=== PATIENT | female | born 1975 | race Caucasian/White ===

== ENCOUNTER 2017-04-29 10:49 | Emergency (ER) | payer OTHER ==
[~2017-04-29] VITALS: Ht 157.5 cm; Wt 106.6 kg
[~2017-04-29 10:49] MED LIST: ASPI-612 PO; BENZ100C15 PO; CARV6.252 PO; DOXY100C2 PO; FURO40TA4 PO; LEVO500T59 PO; LISI2.5T PO; PRED-220 PO; PROAIR HFA8.5 GM IH; [UNRECOGNIZED DRUG - OTHER]
--- NOTE | 2017-04-29 11:16 | PHYS DOC ---
Past Medical History Past Medical History: CHF, COPD, Hypertension Past Surgical History: Tubal ligation Alcohol Use: None Drug Use: None Adult General Chief Complaint Chief Complaint: CHEST PAIN HPI HPI Patient is a 41 year old female presents to the emergency department with complaints of chest and back pain for 5 days. She states she's had increasing shortness of breath. She reports she has not taken her Lasix for approximately 2 months. She denies headache, lightheadedness, nausea, vomiting, abdominal pain. She does report a history of COPD and CHF. She states she is using her albuterol nebulizer 4 times a day without relief of symptoms. She states her last use of tobacco was 5 days ago. She denies use of alcohol or drugs. Review of Systems Review of Systems Constitutional: Denies fever or chills [] Eyes: Denies change in visual acuity, redness, or eye pain [] HENT: Denies nasal congestion or sore throat [] Respiratory: Cough, shortness of breath Cardiovascular: Anterior chest pain, no palpitations, no edema. GI: Denies abdominal pain, nausea, vomiting, bloody stools or diarrhea [] : Denies dysuria or hematuria [] Musculoskeletal: back pain Integument: Denies rash or skin lesions [] Neurologic: Denies headache, focal weakness or sensory changes [] Endocrine: Denies polyuria or polydipsia [] Current Medications Current Medications Current Medications Medications (Trade) Dose Ordered Sig/[facility] Start Time Stop Time Status Last Admin Dose Admin Furosemide (Lasix) 20 mg 1X ONCE 04/29/17 12:15 04/29/17 12:17 DC 04/29/17 13:07 20 MG Allergies Allergies Allergies Coded Allergies Type Severity Reaction Last Updated Verified No Known Drug Allergies 07/29/15 No Physical Exam Physical Exam Constitutional: Well developed, well nourished, no acute distress, non-toxic appearance. [] HENT: Normocephalic, atraumatic, bilateral external ears normal, oropharynx moist, no oral exudates, nose normal. [] Eyes: PERRLA, EOMI, conjunctiva normal, no discharge. [] Neck: Normal range of motion, no tenderness, supple, no stridor. [] Cardiovascular:Heart rate regular rhythm, no murmur [] Lungs & Thorax: Breath sounds diminished throughout Abdomen: Bowel sounds normal, soft, no tenderness, no masses, no pulsatile masses. [] Skin: Warm, dry, no erythema, no rash. [] Back: No tenderness, no CVA tenderness. [] Extremities: No tenderness, no cyanosis, no clubbing, ROM intact, no edema. [] Neurologic: Alert and oriented X 3, normal motor function, normal sensory function, no focal deficits noted. [] Psychologic: Affect normal, judgement normal, mood normal. [] Current Patient Data Vital Signs Vital Signs Date Time Temp Pulse Resp B/P (MAP) Pulse Ox O2 Delivery O2 Flow Rate FiO2 04/29/17 11:08 98.1 101 22 142/100 (114) 95 Room Air 98.1 Lab Values Laboratory Tests Test 04/29/17 11:55 04/29/17 13:01 White Blood Count 8.6 x10^3/uL (4.0-11.0) Red Blood Count 4.40 x10^6/uL (3.50-5.40) Hemoglobin 13.4 g/dL (12.0-15.5) Hematocrit 40.3 % (36.0-47.0) Mean Corpuscular Volume 91 fL (79-100) Mean Corpuscular Hemoglobin 30 pg (25-35) Mean Corpuscular Hemoglobin Concent 33 g/dL (31-37) Red Cell Distribution Width 14.7 % (11.5-14.5) H Platelet Count 215 x10^3/uL (140-400) Neutrophils (%) (Auto) 74 % (31-73) H Lymphocytes (%) (Auto) 16 % (24-48) L Monocytes (%) (Auto) 8 % (0-9) Eosinophils (%) (Auto) 3 % (0-3) Basophils (%) (Auto) 0 % (0-3) Neutrophils # (Auto) 6.3 x10^3uL (1.8-7.7) Lymphocytes # (Auto) 1.4 x10^3/uL (1.0-4.8) Monocytes # (Auto) 0.7 x10^3/uL (0.0-1.1) Eosinophils # (Auto) 0.2 x10^3/uL (0.0-0.7) Basophils # (Auto) 0.0 x10^3/uL (0.0-0.2) Sodium Level 141 mmol/L (136-145) Potassium Level 4.1 mmol/L (3.5-5.1) Chloride Level 105 mmol/L (98-107) Carbon Dioxide Level 30 mmol/L (21-32) Anion Gap 6 (6-14) Blood Urea Nitrogen 7 mg/dL (7-20) Creatinine 1.0 mg/dL (0.6-1.0) Estimated GFR (Cockcroft-Gault) 60.5 BUN/Creatinine Ratio 7 (6-20) Glucose Level 122 mg/dL (70-99) H Calcium Level 9.0 mg/dL (8.5-10.1) Total Bilirubin 1.2 mg/dL (0.2-1.0) H Aspartate Amino Transferase (AST) 15 U/L (15-37) Alanine Aminotransferase (ALT) 49 U/L (14-59) Alkaline Phosphatase 80 U/L (46-116) Creatine Kinase 40 U/L (26-192) Creatine Kinase MB (Mass) 0.6 ng/mL (0.0-3.6) Creatine Kinase MB Relative Index % (0-4) Troponin I Quantitative 0.022 ng/mL (0.000-0.055) QA-Hic-X-Type Natriuretic Peptide 2061 pg/mL (0-124) H Total Protein 8.3 g/dL (6.4-8.2) H Albumin 3.4 g/dL (3.4-5.0) Albumin/Globulin Ratio 0.7 (1.0-1.7) L Urine Color Yellow Urine Clarity Clear Urine pH 7.5 Urine Specific [place] 1.010 Urine Protein Negative mg/dL (NEG-TRACE) Urine Glucose (UA) Negative mg/dL (NEG) Urine Ketones (Stick) Negative mg/dL (NEG) Urine Blood Negative (NEG) Urine Nitrite Negative (NEG) Urine Bilirubin Negative (NEG) Urine Urobilinogen Dipstick 1.0 mg/dL (0.2 mg/dL) Urine Leukocyte Esterase Trace (NEG) Urine RBC 0 /HPF (0-2) Urine WBC 1-4 /HPF (0-4) Urine Squamous Epithelial Cells Occ /LPF Urine Amorphous Sediment Present /HPF Urine Bacteria 0 /HPF (0-FEW) Urine Mucus Slight /LPF Laboratory Tests 04/29/17 11:55 Laboratory Tests 04/29/17 11:55 EKG EKG Reviewed by Dr. Ordaz, emergency medicine physician, no acute changes, non- STEMI. [] Radiology/Procedures Radiology/Procedures [][facility] [address] [place] [address] IMAGING REPORT Signed PATIENT: SANTHOSH FONTANEZ ACCOUNT: [id number] : 1975 LOCATION: ER AGE: 41 SEX: F EXAM STATUS: REG ER ORD. PHYSICIAN: VAN GRAF APRN REASON: Cough, SOA PROCEDURE: CHEST PA & LATERAL Examination: Single frontal view the chest History: History of cough, shortness of breath Comparison: 11/13/2016 Findings: The cardiomediastinal silhouette grossly appears unremarkable. There is no acute infiltrate or visualized pneumothorax. Mild prominent appearing bilateral interstitial markings. Impression: Mild prominent bilateral interstitial lung markings likely mild congestive changes. DICTATED and SIGNED BY: NORMA REGAN MD DATE: 04/29/17 1154 CC: NON,STAFF; VAN GRAF APRN; UNKNOWN PCP NAME ~ Course & Med Decision Making Course & Med Decision Making Review with Dr. Llamas, emergency medicine physician. He is in agreement with plan to discharge patient home with Lasix and follow-up primary care in 2 days. Pertinent Labs and Imaging studies reviewed. (See chart for details) [] Dragon Disclaimer Dragon Disclaimer This electronic medical record was generated, in whole or in part, using a voice recognition dictation system. Departure Departure Impression: Primary Impression: CHF (congestive heart failure) Disposition: 01 HOME, SELF-CARE Condition: STABLE Referrals: UNKNOWN PCP NAME (PCP) Patient Instructions: Diet - 2 Gram Low Sodium, Heart Failure Additional Instructions: Plan to follow-up with your primary care physician in 2 days. Please return to the emergency Department for new symptoms or concerns or worsening of current condition. Scripts Potassium Bicarbonate/Cit Ac (POTASSIUM 25 MEQ TABLET EFF) 25 Meq Tablet.eff 25 MEQ PO DAILY for 20 Days, #20 TAB Prov: VAN GRAF APRN 04/29/17 Furosemide (LASIX) 20 Mg Tablet 1 TAB PO DAILY, #20 TAB 5 Refills Prov: VAN GRAF APRN 04/29/17 VAN GRAF APRN Apr 29, 2017 11:16
--- NOTE | 2017-04-29 11:58 | RAD ---
Examination: Single frontal view the chest History: History of cough, shortness of breath Comparison: 11/13/2016 Findings: The cardiomediastinal silhouette grossly appears unremarkable. There is no acute infiltrate or visualized pneumothorax. Mild prominent appearing bilateral interstitial markings. Impression: Mild prominent bilateral interstitial lung markings likely mild congestive changes.
[2017-04-29 12:05] LABS: BASO % 0 % (0-3); EOS % 3 % (0-3); HEMATOCRIT 40.3 % (36.0-47.0); HEMOGLOBIN 13.4 g/dL (12.0-15.5); LYMPH # 1.4 x10^3/uL (1.0-4.8); LYMPH % 16 % (24-48); MEAN CORPUSCULAR HEMOGLOBIN 30 pg (25-35); MEAN CORPUSCULAR HGB CONC 33 g/dL (31-37); MEAN CORPUSCULAR VOLUME 91 fL (79-100); MONO % 8 % (0-9); NEUT % 74 % (31-73); PLATELET COUNT 215 x10^3/uL (140-400); RED CELL DISTRIBUTION WIDTH 14.7 % (11.5-14.5); WHITE BLOOD COUNT 8.6 x10^3/uL (4.0-11.0)
--- NOTE | 2017-04-29 12:07 | EKG ---
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
[2017-04-29] MEDS ORDERED: FUROSEMIDE 20 MG/2 ML VIAL. IVP ONE (12:15)
[2017-04-29 12:16] LABS: GFR 60.5; POTASSIUM 4.1 mmol/L (3.5-5.1)
[2017-04-29 12:23] LABS: ALBUMIN 3.4 g/dL (3.4-5.0); ALBUMIN/GLOBULIN RATIO 0.7 (1.0-1.7); TOTAL BILIRUBIN 1.2 mg/dL (0.2-1.0); TOTAL PROTEIN 8.3 g/dL (6.4-8.2)
[2017-04-29 12:28] LABS: CKMB MASS 0.6 ng/mL (0.0-3.6); CREATINE KINASE 40 U/L (26-192)
[2017-04-29] MEDS ORDERED: FURO-69 PO (13:01)
[2017-04-29] MEDS ORDERED: POTA25TA4 PO (13:01)
[2017-04-29 13:27] LABS: BILIRUBIN,URINE NEGATIVE (NEG); GLUCOSE,URINE NEGATIVE (NEG); NITRITE,URINE NEGATIVE (NEG); PH,URINE 7.5; PROTEIN,URINE NEGATIVE (NEG-TRACE)
[2017-04-29 13:51] LABS: SQUAMOUS EPITHELIAL CELL,UR OCC /LPF
[2017-04-29 13:53] LABS: BACTERIA,URINE 0 /HPF (0-FEW); RBC,URINE 0 /HPF (0-2)
[2017-04-29 14:22] VITALS: BP 158/87
== END 2017-04-29 14:25 | disposition home or self-care (01) ==
LOC: ER 10:49
DX: I11.0 Hypertensive heart disease with heart failure (principal); I50.9 Heart failure, unspecified; F17.200 Nicotine dependence, unspecified, uncomplicated; J44.9 Chronic obstructive pulmonary disease, unspecified; Z98.51 Tubal ligation status
CPT/HCPCS: 36415; 71020; 80053; 81001; 82553; 83880; 84484; 85027; 93005; 96374; 99285-25

== ENCOUNTER 2017-11-15 13:05 | Emergency (ER) | payer OTHER ==
[2017-11-15 14:02] LABS: ADD MAN DIFF? NO
[2017-11-15 14:16] LABS: BASO % 1 % (0-3); EOS # 0.1 x10^3/uL (0.0-0.7); EOS % 2 % (0-3); HEMATOCRIT 41.6 % (36.0-47.0); HEMOGLOBIN 13.8 g/dL (12.0-15.5); LYMPH # 0.9 x10^3/uL (1.0-4.8); LYMPH % 13 % (24-48); MEAN CORPUSCULAR HEMOGLOBIN 31 pg (25-35); MEAN CORPUSCULAR HGB CONC 33 g/dL (31-37); MEAN CORPUSCULAR VOLUME 93 fL (79-100); MONO # 0.9 x10^3/uL (0.0-1.1); MONO % 13 % (0-9); NEUT # 4.7 x10^3uL (1.8-7.7); NEUT % 71 % (31-73); PLATELET COUNT 207 x10^3/uL (140-400); RED BLOOD COUNT 4.45 x10^6/uL (3.50-5.40); RED CELL DISTRIBUTION WIDTH 14.2 % (11.5-14.5); WHITE BLOOD COUNT 6.7 x10^3/uL (4.0-11.0)
[2017-11-15 14:19] LABS: ANION GAP 12 (6-14); BLOOD UREA NITROGEN 10 mg/dL (7-20); BUN/CREATININE RATIO 13 (6-20); CALCIUM 8.8 mg/dL (8.5-10.1); CARBON DIOXIDE 27 mmol/L (21-32); CHLORIDE 103 mmol/L (98-107); CREATININE 0.8 mg/dL (0.6-1.0); GFR 77.9; GLUCOSE 128 mg/dL (70-99); POTASSIUM 3.8 mmol/L (3.5-5.1); SODIUM 142 mmol/L (136-145)
[2017-11-15] MEDS: DEXAMETHASONE SOD PHOS 4 MG/ML VIAL IV (14:19)
[2017-11-15 14:24] LABS: ALBUMIN 3.5 g/dL (3.4-5.0); ALBUMIN/GLOBULIN RATIO 0.8 (1.0-1.7); ALK PHOS 78 U/L (46-116); ALT (SGPT) 26 U/L (14-59); AST (SGOT) 17 U/L (15-37); TOTAL BILIRUBIN 0.5 mg/dL (0.2-1.0); TOTAL PROTEIN 7.9 g/dL (6.4-8.2)
[2017-11-15 14:32] LABS: TROPONINI < 0.017 ng/mL (0.000-0.055)
[2017-11-15] MEDS: IPRATRPIUM/ALBUTEROL 0.5/2.5MG 3 ML NEBU. NEB (14:46)
[2017-11-15 14:56] LABS: D-DIMER 0.34 ug/mlFEU (0.00-0.50)
== END 2017-11-15 15:43 | disposition home or self-care (01) ==
LOC: ER 13:05
DX: J44.0 Chronic obstructive pulmonary disease with (acute) lower respiratory infection (principal); J18.1 Lobar pneumonia, unspecified organism; J44.1 Chronic obstructive pulmonary disease with (acute) exacerbation; I11.0 Hypertensive heart disease with heart failure; I50.9 Heart failure, unspecified
CPT/HCPCS: 36415; 71046; 80053; 84484; 85025; 85379; 93005; 94640; 96374; 99285-25; J1100; J7620

== ENCOUNTER → 2018-08-06 | Outpatient (CLI) | payer OTHER ==
[2017-11-15 15:43] VITALS: BP 136/78
[~2018-08-06] MED LIST changes: +ALBUTEROL SULFATE 2.5 MG/3 ML NEBU. NEB ONE; +BENZ-8 PO; -BENZ100C15 PO; +DOXY100T PO; +FURO-69 PO; +POTA25TA4 PO; +PRED50TA PO
== END | disposition home or self-care (01) ==
LOC: PF 10:31
PROVIDERS: ATTEND Surgery
DX: J44.9 Chronic obstructive pulmonary disease, unspecified (principal)
CPT/HCPCS: 94060; 94640; 94729; J7613

== ENCOUNTER 2019-08-01 23:07 | Emergency (ER) | payer OTHER ==
[~2019-08-01] VITALS: Ht 162.6 cm; Wt 104.3 kg
[~2019-08-01 23:07] MED LIST changes: +ALBU2.5V8 IH; -ALBUTEROL SULFATE 2.5 MG/3 ML NEBU. NEB ONE; +CARV6.2511 PO; -CARV6.252 PO; -PROAIR HFA8.5 GM IH
[2019-08-01] MEDS ORDERED: IPRATRPIUM/ALBUTEROL 0.5/2.5MG 3 ML NEBU. ONE (23:31)
--- NOTE | 2019-08-02 00:09 | PHYS DOC ---
Past Medical History Past Medical History: CHF, COPD, Hypertension, Other Additional Past Medical Histor: "HEART WEAK" Past Surgical History: Tubal ligation Alcohol Use: None Drug Use: None Adult General Chief Complaint Chief Complaint: SHORTNESS OF BREATH HPI HPI Patient is a 44 year old female who presents with SOB, states for the past week, coughing and congestion, not feeling well. Worse this evening. No CP States cough is dry and giving her a headache. No fevers. Hx of COPD and CHF Denies leg edema. Breathing treatment on arrival. Review of Systems Review of Systems Constitutional: Denies fever or chills [] Eyes: Denies change in visual acuity, redness, or eye pain [] HENT: Denies nasal congestion or sore throat [] Respiratory: c/o cough and SOB Cardiovascular: No additional information not addressed in HPI [] GI: Denies abdominal pain, nausea, vomiting, bloody stools or diarrhea [] Musculoskeletal: Denies back pain or joint pain [] Integument: Denies rash or skin lesions [] Neurologic: Denies headache, focal weakness or sensory changes [] Endocrine: Denies polyuria or polydipsia [] All other systems were reviewed and found to be within normal limits, except as documented in this note. Current Medications Current Medications Current Medications Medications (Trade) Dose Ordered Sig/[facility] Start Time Stop Time Status Last Admin Dose Admin Acetaminophen/ Hydrocodone Bitart (Lortab 7.5-325/ 15ml Oral Solution) 15 ml 1X ONCE 08/02/19 00:15 08/02/19 00:16 DC 08/02/19 00:19 15 ML Albuterol/ Ipratropium (Duoneb) 3 ml STK-MED ONCE 08/01/19 23:31 08/01/19 23:32 DC Methylprednisolone Sodium Succinate (SOLU-Medrol 125MG VIAL) 125 mg 1X ONCE 08/02/19 00:15 08/02/19 00:16 DC 08/02/19 00:45 125 MG Allergies Allergies Allergies Coded Allergies Type Severity Reaction Last Updated Verified No Known Drug Allergies 07/29/15 No Physical Exam Physical Exam Constitutional: Well developed, well nourished, no acute distress, non-toxic appearance. [] HENT: Normocephalic, atraumatic, bilateral external ears normal, oropharynx moist, no oral exudates, nose normal. [] Eyes: PERRLA, EOMI, conjunctiva normal, no discharge. [] Neck: Normal range of motion, no tenderness, supple, no stridor. [] Cardiovascular:Heart rate regular rhythm, no murmur [] Lungs & Thorax: Bilateral breath sounds clear to auscultation []Moderate dry coughing, lungs CTA Abdomen: Bowel sounds normal, soft, no tenderness, no masses, no pulsatile masses. [] Skin: Warm, dry, no erythema, no rash. [] Back: No tenderness, no CVA tenderness. [] Extremities: No tenderness, no cyanosis, no clubbing, ROM intact, no edema. [] Neurologic: Alert and oriented X 3, normal motor function, normal sensory function, no focal deficits noted. [] Psychologic: Affect normal, judgement normal, mood normal. [] Current Patient Data Vital Signs Vital Signs Date Time Temp Pulse Resp B/P (MAP) Pulse Ox O2 Delivery O2 Flow Rate FiO2 08/02/19 00:19 18 94 Room Air Lab Values Laboratory Tests Test 08/02/19 00:30 White Blood Count 5.2 x10^3/uL (4.0-11.0) Red Blood Count 4.02 x10^6/uL (3.50-5.40) Hemoglobin 12.0 g/dL (12.0-15.5) Hematocrit 35.8 % (36.0-47.0) L Mean Corpuscular Volume 89 fL (79-100) Mean Corpuscular Hemoglobin 30 pg (25-35) Mean Corpuscular Hemoglobin Concent 34 g/dL (31-37) Red Cell Distribution Width 14.2 % (11.5-14.5) Platelet Count 181 x10^3/uL (140-400) Neutrophils (%) (Auto) 71 % (31-73) Lymphocytes (%) (Auto) 16 % (24-48) L Monocytes (%) (Auto) 11 % (0-9) H Eosinophils (%) (Auto) 1 % (0-3) Basophils (%) (Auto) 1 % (0-3) Neutrophils # (Auto) 3.7 x10^3/uL (1.8-7.7) Lymphocytes # (Auto) 0.8 x10^3/uL (1.0-4.8) L Monocytes # (Auto) 0.6 x10^3/uL (0.0-1.1) Eosinophils # (Auto) 0.1 x10^3/uL (0.0-0.7) Basophils # (Auto) 0.0 x10^3/uL (0.0-0.2) Sodium Level 136 mmol/L (136-145) Potassium Level 3.9 mmol/L (3.5-5.1) Chloride Level 100 mmol/L (98-107) Carbon Dioxide Level 29 mmol/L (21-32) Anion Gap 7 (6-14) Blood Urea Nitrogen 13 mg/dL (7-20) Creatinine 1.1 mg/dL (0.6-1.0) H Estimated GFR (Cockcroft-Gault) 53.5 Glucose Level 153 mg/dL (70-99) H Calcium Level 9.0 mg/dL (8.5-10.1) Troponin I Quantitative < 0.017 ng/mL (0.000-0.055) CQ-Jto-X-Type Natriuretic Peptide 385 pg/mL (0-124) H Laboratory Tests 08/02/19 00:30 Laboratory Tests 08/02/19 00:30 EKG EKG 0004: rate 92 NSR, no ST changes, EP interp Radiology/Procedures Radiology/Procedures []Chest xray 2 view, no acute finding Impressions: COPD exacerbation Course & Med Decision Making Course & Med Decision Making Pertinent Labs and Imaging studies reviewed. (See chart for details) []VSS, lungs CTA, breathing treatment on my arrival Hx of COPD and CHF, no distal edema No CP Labs and chest xray Prednisone and cough medication She is anxious to go after medications, reports she is feeling much better Vitals remain stable, has albuterol at home Educated on home care fu and reasons to return to the ER Shelley Disclaimer Shelley Disclaimer This electronic medical record was generated, in whole or in part, using a voice recognition dictation system. Departure Departure Impression: Primary Impression: COPD exacerbation Disposition: HOME, SELF-CARE Condition: STABLE Referrals: NO PCP (PCP) Patient Instructions: Cough, Adult, [id number] Additional Instructions: Go home and rest Continue home medications Steroids and cough medication as prescribed Call your doctor Saturday for follow up, return for any concerns or worsening symptoms Scripts Prednisone (PREDNISONE) 20 Mg Tablet 1 TAB PO BID for 5 Days, #10 TAB Prov: JUAN RAMON AUSTIN APRN 08/02/19 JUAN RAMON AUSTIN APRN Aug 02, 2019 00:09
[2019-08-02] MEDS ORDERED: methylPREDNISolone SOD SUCC PF 125 MG/2 ML VIAL. IV ONE (00:15)
[2019-08-02] MEDS ORDERED: HYDROcodon/APAP 7.5/325MG ORAL 15 ML SOLUTION PO ONE (00:15)
[2019-08-02 00:48] LABS: CREATININE 1.1 mg/dL (0.6-1.0); GFR 53.5; POTASSIUM 3.9 mmol/L (3.5-5.1)
[2019-08-02 00:52] LABS: BASO % 1 % (0-3); EOS # 0.1 x10^3/uL (0.0-0.7); EOS % 1 % (0-3); HEMATOCRIT 35.8 % (36.0-47.0); LYMPH # 0.8 x10^3/uL (1.0-4.8); LYMPH % 16 % (24-48); MEAN CORPUSCULAR HEMOGLOBIN 30 pg (25-35); MEAN CORPUSCULAR HGB CONC 34 g/dL (31-37); MEAN CORPUSCULAR VOLUME 89 fL (79-100); MONO # 0.6 x10^3/uL (0.0-1.1); MONO % 11 % (0-9); NEUT # 3.7 x10^3/uL (1.8-7.7); NEUT % 71 % (31-73); PLATELET COUNT 181 x10^3/uL (140-400); RED BLOOD COUNT 4.02 x10^6/uL (3.50-5.40); RED CELL DISTRIBUTION WIDTH 14.2 % (11.5-14.5); WHITE BLOOD COUNT 5.2 x10^3/uL (4.0-11.0)
[2019-08-02] MEDS ORDERED: PRED20TA PO (01:41)
[2019-08-02 03:38] VITALS: BP 138/79
--- NOTE | 2019-08-02 06:48 | RAD ---
Chest, PA and Lateral: Technique: PA and lateral views of the chest were obtained. History: Shortness of breath. Comparison: 11/15/2017. Findings: Mild cardiomegaly. Patchy bibasilar lung airspace opacities likely atelectasis or infiltrates. There is mild prominent appearing bilateral interstitial lung markings. IMPRESSION: 1. Mild congestive changes. 2. Mild bibasilar lung airspace opacities likely atelectasis or infiltrates. Electronically signed by: Demarco Millard MD (08/02/2019 6:45 AM) [facility]
--- NOTE | 2019-08-03 06:15 | EKG ---
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
== END 2019-08-02 03:45 | disposition home or self-care (01) ==
LOC: ER 23:07
DX: J44.1 Chronic obstructive pulmonary disease with (acute) exacerbation (principal); I11.0 Hypertensive heart disease with heart failure; I50.9 Heart failure, unspecified
CPT/HCPCS: 36415; 71046; 80048; 83880; 84484; 85025; 93005; 96374; 99285; J2930

== ENCOUNTER 2020-01-25 04:00 | Emergency (ER) | payer OTHER ==
[~2020-01-25] VITALS: Ht 157.5 cm; Wt 134.5 kg
[~2020-01-25 04:00] MED LIST changes: +PRED20TA PO
[2020-01-25 04:04] VITALS: BP 129/80
== END 2020-01-25 04:20 | disposition left against medical advice (07) ==
LOC: ER 04:00
DX: R05 Cough (principal); J00 Acute nasopharyngitis [common cold]; Z53.21 Procedure and treatment not carried out due to patient leaving prior to being seen by health care provider

== ENCOUNTER 2020-06-20 17:49 | Inpatient (IN) | payer OTHER ==
[~2020-06-20] VITALS: Ht 160 cm; Wt 134.1 kg
[~2020-06-20 17:49] MED LIST changes: -ASPI-612 PO; +ASPI-886 PO
--- NOTE | 2020-06-20 18:44 | PHYS DOC ---
Past Medical History Past Medical History: CHF, COPD Additional Past Medical Histor: "HEART WEAK" Past Surgical History: No Surgical History Smoking Status: Current Every Day Smoker Alcohol Use: None Drug Use: None General Adult EDM: Chief Complaint: SHORTNESS OF BREATH HPI: HPI: Patient is a 45 year old female who presents with cough with green mucus production, shortness of air and chest tightness for the last 3 days. She states that she is gotten worse over the last 3 days. She denies fever, abdominal pain, nausea, vomiting, diarrhea, syncope, dizziness, numbness or tingling, headache, vision changes, focal weakness. She states her chest feels very tight. She speaks in short sentences due to shortness of breath. She is a history of COPD, CHF, smoker. States she has been using her nebulizer at home and is not working. She states she is not currently on any prednisone or antibiotics. Review of Systems: Review of Systems: Constitutional: Denies fever or chills. [] Eyes: Denies change in visual acuity. [] HENT: Denies nasal congestion or sore throat. [] Respiratory: cough or shortness of breath. [] Cardiovascular: chest pain or edema. [] GI: Denies abdominal pain, nausea, vomiting, bloody stools or diarrhea. [] : Denies dysuria. [] Musculoskeletal: Denies back pain or joint pain. [] Integument: Denies rash. [] Neurologic: Denies headache, focal weakness or sensory changes. [] Endocrine: Denies polyuria or polydipsia. [] Lymphatic: Denies swollen glands. [] Psychiatric: Denies depression or anxiety. [] Heart Score: HEART Score for Chest Pain: HEART Score for Chest Pain Response (Comments) Value History Slighlty/Non-Suspicious 0 ECG Normal 0 Age >45 - < 65 1 Risk Factors >3 Risk Factors or Hx CAD 2 Troponin < Normal Limit 0 Total 3 Risk Factors: Risk Factors: DM, Current or recent (<one month) smoker, HTN, HLP, family history of CAD, obesity. Risk Scores: Score 0 - 3: 2.5% MACE over next 6 weeks - Discharge Home Score 4 - 6: 20.3% MACE over next 6 weeks - Admit for Clinical Observation Score 7 - 10: 72.7% MACE over next 6 weeks - Early Invasive Strategies Allergies: Allergies: Allergies Coded Allergies Type Severity Reaction Last Updated Verified No Known Drug Allergies 07/29/15 No Physical Exam: PE: Constitutional: Well developed, well nourished, no acute distress, non-toxic appearance. [] HENT: Normocephalic, atraumatic, bilateral external ears normal, oropharynx moist, no oral exudates, nose normal. [] Eyes: PERRLA, EOMI, conjunctiva normal, no discharge. [] Neck: Normal range of motion, no tenderness, supple, no stridor. [] Cardiovascular:Heart rate tachycardic regular rhythm, no murmur [] Lungs & Thorax: Bilateral breath sounds diminished with expiratory wheezing to auscultation [] Abdomen: Bowel sounds normal, soft, no tenderness, no masses, no pulsatile masses. [] Skin: Warm, dry, no erythema, no rash. [] Back: No tenderness, no CVA tenderness. [] Extremities: No tenderness, no cyanosis, no clubbing, ROM intact, bilateral lower extremities 2+ edema. [] Neurologic: Alert and oriented X 3, normal motor function, normal sensory function, no focal deficits noted. [] Psychologic: Affect normal, judgement normal, mood normal. [] EKG: EK and read by Dr Mas as NSR and no STEMI[] Radiology/Procedures: Radiology/Procedures: [] Impression: [facility] [address] [place] [address] IMAGING REPORT Signed PATIENT: SANTHOSH FONTANEZ ACCOUNT: [id number] : 1975 LOCATION: ER AGE: 45 SEX: F EXAM STATUS: REG ER ORD. PHYSICIAN: IHSAN PARRISH APRN REASON: soa, copd PROCEDURE: PORTABLE CHEST 1V INDICATION: Reason: soa, copd / Spl. Instructions: / History: COMPARISON: August 02, 2019 FINDINGS: Single view of chest obtained. Enlarged cardiomediastinal silhouette is again seen. Mild interstitial prominence. A new region of consolidation seen. IMPRESSION: * Mild interstitial prominence which may be a chronic finding without a definite new region of consolidation. Electronically signed by: Malia Curry MD (06/20/2020 7:20 PM) [id number] DICTATED and SIGNED BY: MALIA CURRY MD DATE: 06/20/201919 Course & Med Decision Making: Course & Med Decision Making Pertinent Labs and Imaging studies reviewed. (See chart for details) COVID-19 CRITERIA: The patient was evaluated during the global COVID-19 pandemic, and that diagnosis was suspected/considered upon their initial presentation. Their evaluation, treatment and testing was consistent with current guidelines for patients who present with complaints or symptoms that may be related to COVID-19. Bilateral lower edema 2+. Lungs are very tight in all lobes with expiratory wheezing heard. Abdomen soft and not distended or tender. Skin pink warm and dry. She is 97% on room air. She is tachycardic. [] Patient states she is feeling better but her lungs still sound very tight reexamination. Patient states that she could use another breathing treatment. She was given 125 of Solu-Medrol in the ED. Her ABG is normal. Patient is admitted to the hospital for COPD exacerbation. Patient admitted to Dr. Durant. I will consult pulmonary. Shelley Disclaimer: Shelley Disclaimer: This electronic medical record was generated, in whole or in part, using a voice recognition dictation system. COVID-19 Patient Risks: Age 65 or older: No Sign of co-morbidity: Yes Exp to person + for COVID: No Exp to PUI: No Lower respiratory symptoms: Yes Fever: No Other: No PPE Use: Full PPE with N95 mask or PAPR: Yes Departure Departure Impression: Primary Impression: COPD exacerbation Additional Impression: Person under investigation for COVID-19 Disposition: ADMITTED INPATIENT Admitting Physician: HIMS Condition: STABLE Referrals: NO PCP (PCP) Justicifation of Admission Dx: Justifications for Admission: Justification of Admission Dx: Yes Acute COPD Exacerbation: Acute COPD Exacerbation IHSAN PARRISH CHIEF CONTROLLER Jun 20, 2020 18:44
[2020-06-20] MEDS ORDERED: ALBUTEROL SULFATE 2.5 MG/3 ML NEBU. CONT NEB ONE (18:45)
[2020-06-20] MEDS ORDERED: methylPREDNISolone SOD SUCC PF 125 MG/2 ML VIAL. IV ONE (18:45)
[2020-06-20] MEDS ORDERED: fentaNYL PF VIAL 100 MCG/2 ML VIAL IVP ONE (19:15)
[2020-06-20 19:16] LABS: BASO % 0 % (0-3); EOS # 0.2 x10^3/uL (0.0-0.7); EOS % 2 % (0-3); HEMATOCRIT 38.9 % (36.0-47.0); HEMOGLOBIN 13.2 g/dL (12.0-15.5); LYMPH # 0.8 x10^3/uL (1.0-4.8); LYMPH % 11 % (24-48); MEAN CORPUSCULAR HEMOGLOBIN 31 pg (25-35); MEAN CORPUSCULAR HGB CONC 34 g/dL (31-37); MEAN CORPUSCULAR VOLUME 92 fL (79-100); MONO # 0.6 x10^3/uL (0.0-1.1); MONO % 9 % (0-9); NEUT # 5.8 x10^3/uL (1.8-7.7); NEUT % 79 % (31-73); PLATELET COUNT 184 x10^3/uL (140-400); RED BLOOD COUNT 4.23 x10^6/uL (3.50-5.40); RED CELL DISTRIBUTION WIDTH 13.6 % (11.5-14.5); WHITE BLOOD COUNT 7.4 x10^3/uL (4.0-11.0)
[2020-06-20 19:21] LABS: BASE EXCESS COOX 1 mmol/L (-3-3); HCO3 COOX 26 mmol/L (21-28); METHEMOGLOBIN 0.4 % (0.0-1.9); OXYHEMOGLOBIN 94.1 %; PCO2 COOX 42 mmHg (35-46); PO2 COOX 75 mmHg (75-108); SAT O2 COOX 95 % (92-99)
--- NOTE | 2020-06-20 19:23 | RAD ---
INDICATION: Reason: soa, copd / Spl. Instructions: / History: COMPARISON: August 02, 2019 FINDINGS: Single view of chest obtained. Enlarged cardiomediastinal silhouette is again seen. Mild interstitial prominence. A new region of consolidation seen. IMPRESSION: * Mild interstitial prominence which may be a chronic finding without a definite new region of consolidation. Electronically signed by: Danish Tracey MD (06/20/2020 7:20 PM) [id number]
[2020-06-20 19:26] LABS: CALCIUM 8.7 mg/dL (8.5-10.1); CREATININE 0.8 mg/dL (0.6-1.0); GFR 76.9; POTASSIUM 3.4 mmol/L (3.5-5.1)
[2020-06-20 19:32] LABS: ALBUMIN 3.2 g/dL (3.4-5.0); ALBUMIN/GLOBULIN RATIO 0.7 (1.0-1.7); TOTAL PROTEIN 7.8 g/dL (6.4-8.2)
[2020-06-20] MEDS ORDERED: DOXYCYCLINE HYCLATE 100 MG in IV DEXTROSE 5% 100ML 100 ML IV ONE (20:00)
[2020-06-20] MEDS ORDERED: cefTRIAXone IV Push 1 GM VIAL. IVP ONE (20:00)
[2020-06-20] MEDS ORDERED: ONDANSETRON PF 4 MG/2 ML VIAL. IV PRN (21:30)
[2020-06-20] MEDS ORDERED: ALBUTEROL SULFATE 2.5 MG/3 ML NEBU. NEB PRN (22:00)
--- NOTE | 2020-06-21 00:37 | NUR ---
Pt. arrived around 0015 via bed from ED w/ COPD exacerbation and PUI. She is A/O x4 and will make needs known.
[2020-06-21 02:22] VITALS: BP 168/76
--- NOTE | 2020-06-21 04:44 | EKG ---
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
[2020-06-21 07:00] VITALS: BP 168/83
[2020-06-21] MEDS ORDERED: ALBUTEROL SULFATE 2.5 MG/3 ML NEBU. INH PRN (07:45)
[2020-06-21] MEDS ORDERED: IPRATRPIUM/ALBUTEROL 0.5/2.5MG 3 ML NEBU. NEB SCH (08:00)
[2020-06-21] MEDS: ALBUTEROL SULFATE 8GM INHALER. INH PRN (08:42)
[2020-06-21] MEDS: guaiFENesin DM 200MG/20MG 10 ML SYRUP PO PRN (08:43)
[2020-06-21] MEDS ORDERED: DEXTROSE 50% 25 GM / 50ML DISP.SYRIN. IV PRN (10:15)
[2020-06-21] MEDS ORDERED: POTASSIUM CHLORIDE 20 MEQ TABLET.ER. PO ONE (10:15)
--- NOTE | 2020-06-21 10:25 | PDOC1 ---
History and Physical Date of Admission Date of Admission DATE: 06/21/20 TIME: 10:20 History of Present Illness History of Present Illness Sivan, is a 45 year old female admit form ER with cough with green mucus production, shortness of air and chest tightness for the last 3 days. 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 States she has been using her inhaler at home without benefit she has been on disability for the past 2 years due to CHF and COPD, her primary care is [facility]. The inhaler she has with her was from Dr. Barajas Past Medical History Cardiovascular: HTN Pulmonary: Bronchitis, COPD, Pneumonia, Other GI: GERD Heme/Onc: No pertinent hx Hepatobiliary: No pertinent hx Psych: No pertinent hx Musculoskeletal: Other Rheumatologic: No pertinent hx Infectious disease: No pertinent hx Renal/: No pertinent hx Endocrine: No pertinent hx Past Surgical History Past Surgical History: Other Family History Family History: Diabetes, Heart Disease, High Cholestrol, Hypertension Social History Smoke: Quit (just 2 weeks ago) ALCOHOL: none Drugs: None Current Problem List Problem List Problems Medical Problems: (1) COPD exacerbation Status: Acute Current Medications Current Medications Current Medications Methylprednisolone Sodium Succinate (SOLU-Medrol 125MG VIAL) 125 mg 1X ONCE IV Last administered on 06/20/20at 19:19; Start 06/20/20 at 18:45; Stop 06/20/20 at 18:46; Status DC Albuterol Sulfate (Ventolin Neb Soln) 10 mg 1X ONCE CONT NEB Last administered on 06/20/20at 19:05; Start 06/20/20 at 18:45; Stop 06/20/20 at 18:46; Status DC Fentanyl Citrate (Fentanyl 2ml Vial) 50 mcg 1X ONCE IVP Last administered on 06/20/20at 19:20; Start 06/20/20 at 19:15; Stop 06/20/20 at 19:16; Status DC Doxycycline Hyclate 100 mg/ Dextrose 100 ml @ 50 mls/hr 1X ONCE IV Last administered on 06/20/20at 20:56; Start 06/20/20 at 20:00; Stop 06/20/20 at 21:59; Status DC Ceftriaxone Sodium (Rocephin) 1 gm 1X ONCE IVP Last administered on 06/20/20at 20:51; Start 06/20/20 at 20:00; Stop 06/20/20 at 20:01; Status DC Ondansetron HCl (Zofran) 4 mg PRN Q8HRS PRN IV NAUSEA/VOMITING; Start 06/20/20 at 21:30; Stop 06/21/20 at 21:29 Albuterol/ Ipratropium (Duoneb) 3 ml RTQID NEB ; Start 06/21/20 at 08:00; Stop 06/20/20 at 21:58; Status DC Albuterol Sulfate (Ventolin Neb Soln) 2.5 mg PRN QID PRN NEB SHORTNESS OF BREATH; Start 06/20/20 at 22:00; Status Cancel Guaifenesin (Robitussin Dm) 10 ml PRN Q4HRS PRN PO COUGH Last administered on 06/21/20at 08:43; Start 06/21/20 at 07:45 Albuterol Sulfate (Ventolin Neb Soln) 8,500 mg PRN Q6HRS PRN INH SHORTNESS OF BREATH; Start 06/21/20 at 07:45; Status UNV Albuterol Sulfate (Ventolin Hfa) 1 puff PRN Q6HRS PRN INH WHEEZES Last administered on 06/21/20at 08:42; Start 06/21/20 at 08:15 Aspirin (Ecotrin) 81 mg DAILYWBKFT PO ; Start 06/22/20 at 08:00 Benzonatate (Tessalon Perle) 100 mg [id number] PO ; Start 06/21/20 at 14:00 Carvedilol (Coreg) 6.25 mg BIDWMEALS PO ; Start 06/21/20 at 10:30 Furosemide (Lasix) 40 mg DAILY PO ; Start 06/22/20 at 09:00 Lisinopril (Prinivil) 2.5 mg DAILY PO ; Start 06/21/20 at 10:30 Insulin Human Lispro (HumaLOG) 0-9 UNITS TIDWMEALS SQ ; Start 06/21/20 at 12:00 Dextrose (Dextrose 50%-Water Syringe) 12.5 gm PRN Q15MIN PRN IV SEE COMMENTS; Start 06/21/20 at 10:15 Prednisone (Prednisone) 60 mg DAILY PO ; Start 06/21/20 at 11:00 Albuterol/ Ipratropium (Duoneb) 3 ml Q4HRS W/A NEB ; Start 06/21/20 at 14:00; Status UNV Potassium Chloride (Klor-Con) 40 meq 1X ONCE PO ; Start 06/21/20 at 10:15; Stop 06/21/20 at 10:16; Status DC Active Scripts Active Prednisone 20 Mg Tablet 1 Tab PO BID 5 Days Prednisone 50 Mg Tablet 1 Tab PO DAILY Doxycycline Hyclate 100 Mg Tablet 1 Tab PO BID 10 Days Potassium 25 Meq Tablet Eff (Potassium Bicarbonate/Cit Ac) 25 Meq Tablet.eff 25 Meq PO DAILY 20 Days Lasix (Furosemide) 20 Mg Tablet 1 Tab PO DAILY Lisinopril 2.5 Mg Tablet 2.5 Mg PO DAILY 30 Days Furosemide 40 Mg Tablet 40 Mg PO DAILY 30 Days Carvedilol (Carvedilol) 6.25 Mg Tablet 6.25 Mg PO BIDWMEALS 30 Days Benzonatate 100 Mg Capsule 100 Mg PO [id number] Aspirin Ec (Aspirin) 81 Mg Tablet.dr 81 Mg PO DAILYWBKFT Reported [quvar inhaler] Proair Hfa Inhaler (Albuterol Sulfate) 8.5 Gm Hfa.aer.ad 2 Puff IH PRN Q4-6HRS PRN Allergies Allergies: Coded Allergies: No Known Drug Allergies (Unverified , 07/29/15) ROS General: YES: Chills, Fatigue, Malaise PSYCHOLOGICAL ROS: YES: Irritablity, Sleep disturbances; No: Anxiety, Behavioral Disorder, Concentration difficultie, Decreased libido, Depression, Disorientation, Hallucinations, Hostility, Memory difficulties, Mood Swings, Obsessive thoughts, Other Respiratory: YES: Cough, SOB with excertion, Sputum Changes, Tachypnea, Wheezing; No: Hemoptysis, Orthopnea, Pleuritic Pain, Shortness of breath, Stridor, Other Cardiovascular: yes Edema; No Chest Pain, No Palpitations, No Orthopnea, No Paroxysmal Noc. Dyspnea, No Lt Headedness, No Other Gastrointestinal: No Nausea, No Vomiting, No Abdominal Pain, No Diarrhea, No Constipation, No Melena, No Hematochezia, No Other Genitourinary: No Dysuria, No Frequency, No Incontinence, No Hematuria, No Retention, No Discharge, No Urgency, No Pain, No Flank Pain, No Other, No , No , No , No , No , No , No Musculoskeletal: Yes Joint Pain, Yes Joint Stiffness; No Gait Disturbance, No Joint Swelling, No Muscle Pain, No Muscular Weakness, No Pain In:, No Swelling In:, No Other Neurological: Yes Weakness; No Behavorial Changes, No Bowel/Bladder ControlChng, No Confusion, No Dizziness, No Headaches, No Impaired Coord/balance, No Memory Loss, No Numbness/Tingling, No Seizures, No Speech Problems, No Tremors, No Visual Changes, No Other Skin: Yes Dry Skin; No Eczema, No Hair Changes, No Lumps, No Mole Changes, No Mottling, No Nail Changes, No Pruritus, No Rash, No Skin Lesion Changes, No Other, No Acne Physical Exam General: Alert, Oriented X3, Cooperative, mild distress HEENT: Atraumatic, PERRLA Lungs: Other (wheeze, crackles, mod volume, coughs when forced inspiration) Heart: RRR (tachy) Extremities: No clubbing, Other (1+ BLE edema) Skin: No breakdown Neuro: Normal speech, Sensation intact Psych/Mental Status: Mood NL, Other (lethargic and weak appearance) Vitals Vitals Vital Signs Date Time Temp Pulse Resp B/P (MAP) Pulse Ox O2 Delivery O2 Flow Rate FiO2 06/21/20 07:00 97.7 93 19 168/83 (111) 94 Room Air 97.7 Labs Labs Laboratory Tests Test 06/20/20 18:45 06/20/20 19:21 White Blood Count 7.4 x10^3/uL (4.0-11.0) Red Blood Count 4.23 x10^6/uL (3.50-5.40) Hemoglobin 13.2 g/dL (12.0-15.5) Hematocrit 38.9 % (36.0-47.0) Mean Corpuscular Volume 92 fL (79-100) Mean Corpuscular Hemoglobin 31 pg (25-35) Mean Corpuscular Hemoglobin Concent 34 g/dL (31-37) Red Cell Distribution Width 13.6 % (11.5-14.5) Platelet Count 184 x10^3/uL (140-400) Neutrophils (%) (Auto) 79 % (31-73) Lymphocytes (%) (Auto) 11 % (24-48) Monocytes (%) (Auto) 9 % (0-9) Eosinophils (%) (Auto) 2 % (0-3) Basophils (%) (Auto) 0 % (0-3) Neutrophils # (Auto) 5.8 x10^3/uL (1.8-7.7) Lymphocytes # (Auto) 0.8 x10^3/uL (1.0-4.8) Monocytes # (Auto) 0.6 x10^3/uL (0.0-1.1) Eosinophils # (Auto) 0.2 x10^3/uL (0.0-0.7) Basophils # (Auto) 0.0 x10^3/uL (0.0-0.2) Sodium Level 136 mmol/L (136-145) Potassium Level 3.4 mmol/L (3.5-5.1) Chloride Level 101 mmol/L (98-107) Carbon Dioxide Level 29 mmol/L (21-32) Anion Gap 6 (6-14) Blood Urea Nitrogen 7 mg/dL (7-20) Creatinine 0.8 mg/dL (0.6-1.0) Estimated GFR (Cockcroft-Gault) 76.9 BUN/Creatinine Ratio 9 (6-20) Glucose Level 204 mg/dL (70-99) Calcium Level 8.7 mg/dL (8.5-10.1) Total Bilirubin 1.0 mg/dL (0.2-1.0) Aspartate Amino Transf (AST/SGOT) 27 U/L (15-37) Alanine Aminotransferase (ALT/SGPT) 45 U/L (14-59) Alkaline Phosphatase 91 U/L (46-116) Troponin I Quantitative < 0.017 ng/mL (0.000-0.055) JW-Xwr-A-Type Natriuretic Peptide 580 pg/mL (0-124) Total Protein 7.8 g/dL (6.4-8.2) Albumin 3.2 g/dL (3.4-5.0) Albumin/Globulin Ratio 0.7 (1.0-1.7) O2 Saturation 95 % (92-99) Arterial Blood pH 7.40 (7.35-7.45) Arterial Blood pCO2 at Patient Temp 42 mmHg (35-46) Arterial Blood pO2 at Patient Temp 75 mmHg (75-108) Arterial Blood HCO3 26 mmol/L (21-28) Arterial Blood Base Excess 1 mmol/L (-3-3) Oxyhemoglobin 94.1 % Methemoglobin 0.4 % (0.0-1.9) Carbon Monoxide, Quantitative 0.4 % (0.0-1.9) FiO2 21 Laboratory Tests Test 06/20/20 18:45 06/20/20 19:21 White Blood Count 7.4 x10^3/uL (4.0-11.0) Red Blood Count 4.23 x10^6/uL (3.50-5.40) Hemoglobin 13.2 g/dL (12.0-15.5) Hematocrit 38.9 % (36.0-47.0) Mean Corpuscular Volume 92 fL (79-100) Mean Corpuscular Hemoglobin 31 pg (25-35) Mean Corpuscular Hemoglobin Concent 34 g/dL (31-37) Red Cell Distribution Width 13.6 % (11.5-14.5) Platelet Count 184 x10^3/uL (140-400) Neutrophils (%) (Auto) 79 % (31-73) Lymphocytes (%) (Auto) 11 % (24-48) Monocytes (%) (Auto) 9 % (0-9) Eosinophils (%) (Auto) 2 % (0-3) Basophils (%) (Auto) 0 % (0-3) Neutrophils # (Auto) 5.8 x10^3/uL (1.8-7.7) Lymphocytes # (Auto) 0.8 x10^3/uL (1.0-4.8) Monocytes # (Auto) 0.6 x10^3/uL (0.0-1.1) Eosinophils # (Auto) 0.2 x10^3/uL (0.0-0.7) Basophils # (Auto) 0.0 x10^3/uL (0.0-0.2) Sodium Level 136 mmol/L (136-145) Potassium Level 3.4 mmol/L (3.5-5.1) Chloride Level 101 mmol/L (98-107) Carbon Dioxide Level 29 mmol/L (21-32) Anion Gap 6 (6-14) Blood Urea Nitrogen 7 mg/dL (7-20) Creatinine 0.8 mg/dL (0.6-1.0) Estimated GFR (Cockcroft-Gault) 76.9 BUN/Creatinine Ratio 9 (6-20) Glucose Level 204 mg/dL (70-99) Calcium Level 8.7 mg/dL (8.5-10.1) Total Bilirubin 1.0 mg/dL (0.2-1.0) Aspartate Amino Transf (AST/SGOT) 27 U/L (15-37) Alanine Aminotransferase (ALT/SGPT) 45 U/L (14-59) Alkaline Phosphatase 91 U/L (46-116) Troponin I Quantitative < 0.017 ng/mL (0.000-0.055) GE-Ccq-F-Type Natriuretic Peptide 580 pg/mL (0-124) Total Protein 7.8 g/dL (6.4-8.2) Albumin 3.2 g/dL (3.4-5.0) Albumin/Globulin Ratio 0.7 (1.0-1.7) O2 Saturation 95 % (92-99) Arterial Blood pH 7.40 (7.35-7.45) Arterial Blood pCO2 at Patient Temp 42 mmHg (35-46) Arterial Blood pO2 at Patient Temp 75 mmHg (75-108) Arterial Blood HCO3 26 mmol/L (21-28) Arterial Blood Base Excess 1 mmol/L (-3-3) Oxyhemoglobin 94.1 % Methemoglobin 0.4 % (0.0-1.9) Carbon Monoxide, Quantitative 0.4 % (0.0-1.9) FiO2 21 VTE Prophylaxis Ordered VTE Prophylaxis Devices: No VTE Pharmacological Prophylaxi: Yes Assessment/Plan Assessment/Plan sepsis, SIRS acute exacerbation of COPD admit to the COVID 19 unit for eval, pt seen with full PPE morbid obeisty, BMI 52 chronic combined CHF, on disability tobacco use disorder, quit 2 weeks ago, Justicifation of Admission Dx: Justifications for Admission: Justification of Admission Dx: Yes Acute COPD Exacerbation: Acute COPD Exacerbation MAICOL BRAND MD Jun 21, 2020 10:25
[2020-06-21] MEDS ORDERED: DOXYCYCLINE HYCLATE 100 MG TABLET PO ONE (10:30)
[2020-06-21 10:34] VITALS: BP 150/84
[2020-06-21] MEDS: predniSONE 20 MG TABLET PO SCH (10:55)
[2020-06-21] MEDS: LISINOPRIL 5 MG TABLET. PO SCH (10:56)
[2020-06-21] MEDS: IPRATROPIUM/ALBUTEROL 20/100mcg/INH INHALER. INH SCH ×4 (10:56→22:25)
[2020-06-21] MEDS: CARVEDILOL 6.25 MG TABLET. PO SCH ×2 (10:56→17:12)
[2020-06-21] MEDS: cefTRIAXone IV Push 1 GM VIAL. IVP SCH (10:56)
[2020-06-21] MEDS: INSULIN LISPRO 300 UNITS/3 ML VIAL. SQ SCH ×2 (11:53→17:14)
--- NOTE | 2020-06-21 11:54 | CONS ---
DATE OF CONSULTATION: PULMONARY CONSULTATION ATTENDING PHYSICIAN: Dr. Durant. REASON FOR CONSULTATION: Dyspnea on exertion. HISTORY OF PRESENT ILLNESS: The patient is a 45-year-old obese female with a BMI of 52. She smoked for 30 years before quitting 2 weeks ago. She presented to the hospital with cough with some green mucus production. She had some wheezing. She had some shortness of breath as well. No headache, no nausea, vomiting, no diarrhea, no dysuria. She is normally not on home oxygen. No history of deep vein thrombosis or pulmonary embolism. She said she has some mild leg edema as well. Her chest x-ray did not reveal any definite consolidation. There was slightly prominent interstitial markings. She does not have a fever. She denies any COVID exposures. PAST MEDICAL HISTORY: Significant for history of hypertension, history of COPD, pneumonia, bronchitis, GERD. PAST SURGICAL HISTORY: No recent surgeries. FAMILY HISTORY: Diabetes, heart disease, dyslipidemia, and hypertension. ALLERGIES: None. MEDICATIONS: Reviewed as listed in the MRAD. REVIEW OF SYSTEMS: Twelve-point system obtained. Pertinent positives discussed in my history of present illness, otherwise noncontributory. All systems that were negative were reviewed as well. PHYSICAL EXAMINATION: VITAL SIGNS: Reviewed. Blood pressure on the high side, pulse ox 95% on room air. GENERAL: Visual exam done due to COVID pandemia. She has no obvious paradoxical breathing. She is not in any distress. SKIN: No skin rash. EXTREMITIES: No leg edema. LABORATORY DATA: Reviewed. White cell count 7.4, hemoglobin 13.2 and platelets are 184. BUN 7, creatinine 0.8. ABGs with a pH of 7.40, pCO2 of 42 and a pO2 of 75 on room air. IMPRESSION: 1. Dyspnea secondary to acute exacerbation of chronic obstructive pulmonary disease triggered by acute bronchitis. 2. No definite consolidation seen on the chest x-ray. 3. Morbid obesity, suspect obstructive sleep apnea, may benefit from outpatient sleep study. RECOMMENDATIONS: 1. P.r.n. oxygen. 2. Continue with empiric antibiotic, doxycycline and Rocephin. 3. Continue with oral prednisone. 4. Bronchodilators. 5. Low suspicion for COVID-19. 6. PFTs as an outpatient. 7. We will follow along with you. RASHID CHA MD DR: IRMA/pascual JOB#: [id number] / [id number]
--- NOTE | 2020-06-21 14:08 | NUR ---
SW following. Reviewed chart and discussed with RN. Pt from home on room air. No PT/OT needs. Pt on IV Rocephin. Pt COVID pending. No anticipated SW needs at discharge. SW to follow as needed.
[2020-06-21] MEDS: BENZONATATE 100 MG CAPSULE. PO SCH ×2 (14:33→22:26)
[2020-06-21 15:00] VITALS: BP 156/82
[2020-06-21 19:00] VITALS: BP 142/79
[2020-06-21] MEDS: DOXYCYCLINE HYCLATE 100 MG TABLET PO SCH (22:26)
[2020-06-21] MEDS: LACTOBACILLUS RHAMNOSUS GG 1 CAPSULE. PO SCH (22:26)
[2020-06-21 23:00] VITALS: BP 174/99
[2020-06-22 03:00] VITALS: BP 161/93
[2020-06-22] MEDS: IPRATROPIUM/ALBUTEROL 20/100mcg/INH INHALER. INH SCH ×3 (06:00→14:00)
[2020-06-22 07:00] VITALS: BP 149/81
[2020-06-22] MEDS ORDERED: ASPIRIN ENTERIC COATED 81 MG TABLET.DR. PO SCH (08:00)
[2020-06-22] MEDS: INSULIN LISPRO 300 UNITS/3 ML VIAL. SQ SCH ×2 (08:00→12:00)
--- NOTE | 2020-06-22 08:44 | PDOC ---
PULMONARY PROGRESS NOTES DATE: 06/22/20 TIME: 08:43 Subjective wants to go home less soa Vitals Vital Signs Date Time Temp Pulse Resp B/P (MAP) Pulse Ox O2 Delivery O2 Flow Rate FiO2 06/22/20 07:00 97.6 93 24 149/81 (103) 98 Nasal Cannula 97.6 General: Alert, Oriented X4, No acute distress Lungs: Wheezing (faint) Cardiovascular: S1, S2 Abdomen: Soft Neuro Exam: Alert Extremities: Other Labs Laboratory Tests Test 06/20/20 18:45 06/20/20 19:21 06/20/20 20:40 06/21/20 11:06 White Blood Count 7.4 x10^3/uL (4.0-11.0) Red Blood Count 4.23 x10^6/uL (3.50-5.40) Hemoglobin 13.2 g/dL (12.0-15.5) Hematocrit 38.9 % (36.0-47.0) Mean Corpuscular Volume 92 fL (79-100) Mean Corpuscular Hemoglobin 31 pg (25-35) Mean Corpuscular Hemoglobin Concent 34 g/dL (31-37) Red Cell Distribution Width 13.6 % (11.5-14.5) Platelet Count 184 x10^3/uL (140-400) Neutrophils (%) (Auto) 79 % (31-73) Lymphocytes (%) (Auto) 11 % (24-48) Monocytes (%) (Auto) 9 % (0-9) Eosinophils (%) (Auto) 2 % (0-3) Basophils (%) (Auto) 0 % (0-3) Neutrophils # (Auto) 5.8 x10^3/uL (1.8-7.7) Lymphocytes # (Auto) 0.8 x10^3/uL (1.0-4.8) Monocytes # (Auto) 0.6 x10^3/uL (0.0-1.1) Eosinophils # (Auto) 0.2 x10^3/uL (0.0-0.7) Basophils # (Auto) 0.0 x10^3/uL (0.0-0.2) Sodium Level 136 mmol/L (136-145) Potassium Level 3.4 mmol/L (3.5-5.1) Chloride Level 101 mmol/L (98-107) Carbon Dioxide Level 29 mmol/L (21-32) Anion Gap 6 (6-14) Blood Urea Nitrogen 7 mg/dL (7-20) Creatinine 0.8 mg/dL (0.6-1.0) Estimated GFR (Cockcroft-Gault) 76.9 BUN/Creatinine Ratio 9 (6-20) Glucose Level 204 mg/dL (70-99) Calcium Level 8.7 mg/dL (8.5-10.1) Total Bilirubin 1.0 mg/dL (0.2-1.0) Aspartate Amino Transf (AST/SGOT) 27 U/L (15-37) Alanine Aminotransferase (ALT/SGPT) 45 U/L (14-59) Alkaline Phosphatase 91 U/L (46-116) Troponin I Quantitative < 0.017 ng/mL (0.000-0.055) JB-Xwa-E-Type Natriuretic Peptide 580 pg/mL (0-124) Total Protein 7.8 g/dL (6.4-8.2) Albumin 3.2 g/dL (3.4-5.0) Albumin/Globulin Ratio 0.7 (1.0-1.7) O2 Saturation 95 % (92-99) Arterial Blood pH 7.40 (7.35-7.45) Arterial Blood pCO2 at Patient Temp 42 mmHg (35-46) Arterial Blood pO2 at Patient Temp 75 mmHg (75-108) Arterial Blood HCO3 26 mmol/L (21-28) Arterial Blood Base Excess 1 mmol/L (-3-3) Oxyhemoglobin 94.1 % Methemoglobin 0.4 % (0.0-1.9) Carbon Monoxide, Quantitative 0.4 % (0.0-1.9) FiO2 21 Coronavirus (PCR) Not detected (Not Detected) Glucose (Fingerstick) 255 mg/dL (70-99) Test 06/21/20 16:38 06/21/20 22:53 06/22/20 07:50 Glucose (Fingerstick) 266 mg/dL (70-99) 255 mg/dL (70-99) 179 mg/dL (70-99) Laboratory Tests Test 06/21/20 11:06 06/21/20 16:38 06/21/20 22:53 06/22/20 07:50 Glucose (Fingerstick) 255 mg/dL (70-99) 266 mg/dL (70-99) 255 mg/dL (70-99) 179 mg/dL (70-99) Medications Active Scripts Medications Dose Route/Sig Max Daily Dose Days Date Category Prednisone 20 Mg Tablet 1 Tab PO BID 5 08/02/19 Rx Prednisone 50 Mg Tablet 1 Tab PO DAILY 11/15/17 Rx Doxycycline Hyclate 100 Mg Tablet 1 Tab PO BID 10 11/15/17 Rx Potassium 25 Meq Tablet Eff (Potassium Bicarbonate/Cit Ac) 25 Meq Tablet.eff 25 Meq PO DAILY 20 04/29/17 Rx Lasix (Furosemide) 20 Mg Tablet 1 Tab PO DAILY 04/29/17 Rx Lisinopril 2.5 Mg Tablet 2.5 Mg PO DAILY 30 05/04/16 Rx Furosemide 40 Mg Tablet 40 Mg PO DAILY 30 05/04/16 Rx Carvedilol (Carvedilol) 6.25 Mg Tablet 6.25 Mg PO BIDWMEALS 30 05/04/16 Rx Benzonatate 100 Mg Capsule 100 Mg PO [id number] 05/04/16 Rx Aspirin Ec (Aspirin) 81 Mg Tablet.dr 81 Mg PO DAILYWBKFT 05/04/16 Rx [quvar inhaler] 05/01/16 Reported Proair Hfa Inhaler (Albuterol Sulfate) 8.5 Gm Hfa.aer.ad 2 Puff IH PRN Q4-6HRS PRN 07/29/15 Reported Comments CXR IMPRESSION: * Mild interstitial prominence which may be a chronic finding without a definite new region of consolidation. Impression . IMPRESSION: 1. Dyspnea secondary to acute exacerbation of chronic obstructive pulmonary disease triggered by acute bronchitis. 2. No definite consolidation seen on the chest x-ray. 3. Morbid obesity, suspect obstructive sleep apnea, may benefit from outpatient sleep study. Plan . RECOMMENDATIONS: 1. P.r.n. oxygen. 2. Continue with empiric antibiotic, doxycycline . can dc Rocephin. 3. Continue with oral prednisone. 4. Bronchodilators. 5. Low suspicion for COVID-19. test neg 6. PFTs as an outpatient. 7. ok with [facility] RASHID CHA MD Jun 22, 2020 08:44
[2020-06-22] MEDS ORDERED: FUROSEMIDE 40 MG TABLET. PO SCH (09:00)
[2020-06-22] MEDS: LACTOBACILLUS RHAMNOSUS GG 1 CAPSULE. PO SCH (10:13)
[2020-06-22] MEDS: CARVEDILOL 6.25 MG TABLET. PO SCH (10:13)
--- NOTE | 2020-06-22 10:13 | PDOC ---
PROGRESS NOTES Date of Service: DATE: 06/22/20 TIME: 10:13 Chief Complaint Chief Complaint VTE Prophylaxis Ordered VTE Prophylaxis Devices: No VTE Pharmacological Prophylaxi: Yes DISCHARGE DX sepsis, acute exacerbation of COPD admit to the COVID 19 unit for eval, morbid obeisty, BMI 52 chronic combined CHF, on disability tobacco use disorder, quit 2 weeks ago, empiric antibiotic, doxycycline . dc Rocephin. Continue with oral prednisone d/c today 06/22 D/C PLANNING 24 MIN Justicifation of Admission Dx: Justicifation of Admission Dx: Justifications for Admission: Justification of Admission Dx: Yes Acute COPD Exacerbation: Acute COPD Exacerbation History of Present Illness History of Present Illness History of Present Illness History of Present Illness Sivan is a 45 year old female admit form ER with cough with green mucus production, shortness of air and chest tightness for the last 3 days. Priro eval here for CHF and COPD, She states that she is gotten worse over the last 3 days, with chest tightness, no real pain, could not walk well due to dyspnea, a little better this AM . States she has been using her inhaler at home without benefit she has been on disability for the past 2 years due to CHF and COPD, her primary care is [facility]. Past Medical History Cardiovascular: HTN Pulmonary: Bronchitis, COPD, Pneumonia, Other GI: GERD Heme/Onc: No pertinent hx Hepatobiliary: No pertinent hx Psych: No pertinent hx Musculoskeletal: Other Rheumatologic: No pertinent hx Infectious disease: No pertinent hx Renal/: No pertinent hx Endocrine: No pertinent hx Past Surgical History Past Surgical History: Other Family History Family History: Diabetes, Heart Disease, High Cholestrol, Hypertension Social History Smoke: Quit (just 2 weeks ago) ALCOHOL: none Drugs: None Vitals Vitals Vital Signs Date Time Temp Pulse Resp B/P (MAP) Pulse Ox O2 Delivery O2 Flow Rate FiO2 06/22/20 07:00 97.6 93 24 149/81 (103) 98 Nasal Cannula 97.6 Physical Exam General: Alert, Oriented X3, Cooperative, No acute distress Heart: Regular rate Lungs: Wheezing (faint) Abdomen: Normal bowel sounds, Soft Extremities: No clubbing, No cyanosis, Other (1+ BLE edema) Skin: No breakdown Labs LABS INDICATION: Reason: soa, copd / Spl. Instructions: / History: COMPARISON: August 02, 2019 FINDINGS: Single view of chest obtained. Enlarged cardiomediastinal silhouette is again seen. Mild interstitial prominence. A new region of consolidation seen. IMPRESSION: * Mild interstitial prominence which may be a chronic finding without a definite new region of consolidation. Electronically signed by: Malia Tracey MD (06/20/2020 7:20 PM) [id number] DICTATED and SIGNED BY: MALIA TRACEY MD Laboratory Tests Test 06/21/20 11:06 06/21/20 16:38 06/21/20 22:53 06/22/20 07:50 Glucose (Fingerstick) 255 mg/dL (70-99) 266 mg/dL (70-99) 255 mg/dL (70-99) 179 mg/dL (70-99) Assessment and Plan Assessmemt and Plan Problems Medical Problems: (1) COPD exacerbation Status: Acute Comment Review of Relevant I have reviewed the following items javed (where applicable) has been applied. Labs Laboratory Tests Test 06/20/20 18:45 06/20/20 19:21 06/20/20 20:40 06/21/20 11:06 White Blood Count 7.4 x10^3/uL (4.0-11.0) Red Blood Count 4.23 x10^6/uL (3.50-5.40) Hemoglobin 13.2 g/dL (12.0-15.5) Hematocrit 38.9 % (36.0-47.0) Mean Corpuscular Volume 92 fL (79-100) Mean Corpuscular Hemoglobin 31 pg (25-35) Mean Corpuscular Hemoglobin Concent 34 g/dL (31-37) Red Cell Distribution Width 13.6 % (11.5-14.5) Platelet Count 184 x10^3/uL (140-400) Neutrophils (%) (Auto) 79 % (31-73) Lymphocytes (%) (Auto) 11 % (24-48) Monocytes (%) (Auto) 9 % (0-9) Eosinophils (%) (Auto) 2 % (0-3) Basophils (%) (Auto) 0 % (0-3) Neutrophils # (Auto) 5.8 x10^3/uL (1.8-7.7) Lymphocytes # (Auto) 0.8 x10^3/uL (1.0-4.8) Monocytes # (Auto) 0.6 x10^3/uL (0.0-1.1) Eosinophils # (Auto) 0.2 x10^3/uL (0.0-0.7) Basophils # (Auto) 0.0 x10^3/uL (0.0-0.2) Sodium Level 136 mmol/L (136-145) Potassium Level 3.4 mmol/L (3.5-5.1) Chloride Level 101 mmol/L (98-107) Carbon Dioxide Level 29 mmol/L (21-32) Anion Gap 6 (6-14) Blood Urea Nitrogen 7 mg/dL (7-20) Creatinine 0.8 mg/dL (0.6-1.0) Estimated GFR (Cockcroft-Gault) 76.9 BUN/Creatinine Ratio 9 (6-20) Glucose Level 204 mg/dL (70-99) Calcium Level 8.7 mg/dL (8.5-10.1) Total Bilirubin 1.0 mg/dL (0.2-1.0) Aspartate Amino Transf (AST/SGOT) 27 U/L (15-37) Alanine Aminotransferase (ALT/SGPT) 45 U/L (14-59) Alkaline Phosphatase 91 U/L (46-116) Troponin I Quantitative < 0.017 ng/mL (0.000-0.055) YP-[id number]-Type Natriuretic Peptide 580 pg/mL (0-124) Total Protein 7.8 g/dL (6.4-8.2) Albumin 3.2 g/dL (3.4-5.0) Albumin/Globulin Ratio 0.7 (1.0-1.7) O2 Saturation 95 % (92-99) Arterial Blood pH 7.40 (7.35-7.45) Arterial Blood pCO2 at Patient Temp 42 mmHg (35-46) Arterial Blood pO2 at Patient Temp 75 mmHg (75-108) Arterial Blood HCO3 26 mmol/L (21-28) Arterial Blood Base Excess 1 mmol/L (-3-3) Oxyhemoglobin 94.1 % Methemoglobin 0.4 % (0.0-1.9) Carbon Monoxide, Quantitative 0.4 % (0.0-1.9) FiO2 21 Coronavirus (PCR) Not detected (Not Detected) Glucose (Fingerstick) 255 mg/dL (70-99) Test 06/21/20 16:38 06/21/20 22:53 06/22/20 07:50 Glucose (Fingerstick) 266 mg/dL (70-99) 255 mg/dL (70-99) 179 mg/dL (70-99) Laboratory Tests Test 06/21/20 11:06 06/21/20 16:38 06/21/20 22:53 06/22/20 07:50 Glucose (Fingerstick) 255 mg/dL (70-99) 266 mg/dL (70-99) 255 mg/dL (70-99) 179 mg/dL (70-99) Medications Current Medications Methylprednisolone Sodium Succinate (SOLU-Medrol 125MG VIAL) 125 mg 1X ONCE IV Last administered on 06/20/20at 19:19; Start 06/20/20 at 18:45; Stop 06/20/20 at 18:46; Status DC Albuterol Sulfate (Ventolin Neb Soln) 10 mg 1X ONCE CONT NEB Last administered on 06/20/20at 19:05; Start 06/20/20 at 18:45; Stop 06/20/20 at 18:46; Status DC Fentanyl Citrate (Fentanyl 2ml Vial) 50 mcg 1X ONCE IVP Last administered on 06/20/20at 19:20; Start 06/20/20 at 19:15; Stop 06/20/20 at 19:16; Status DC Doxycycline Hyclate 100 mg/ Dextrose 100 ml @ 50 mls/hr 1X ONCE IV Last administered on 06/20/20at 20:56; Start 06/20/20 at 20:00; Stop 06/20/20 at 21:59; Status DC Ceftriaxone Sodium (Rocephin) 1 gm 1X ONCE IVP Last administered on 06/20/20at 20:51; Start 06/20/20 at 20:00; Stop 06/20/20 at 20:01; Status DC Ondansetron HCl (Zofran) 4 mg PRN Q8HRS PRN IV NAUSEA/VOMITING; Start 06/20/20 at 21:30; Stop 06/21/20 at 21:29; Status DC Albuterol/ Ipratropium (Duoneb) 3 ml RTQID NEB ; Start 06/21/20 at 08:00; Stop 06/20/20 at 21:58; Status DC Albuterol Sulfate (Ventolin Neb Soln) 2.5 mg PRN QID PRN NEB SHORTNESS OF BREATH; Start 06/20/20 at 22:00; Status Cancel Guaifenesin (Robitussin Dm) 10 ml PRN Q4HRS PRN PO COUGH Last administered on 06/21/20at 08:43; Start 06/21/20 at 07:45 Albuterol Sulfate (Ventolin Neb Soln) 8,500 mg PRN Q6HRS PRN INH SHORTNESS OF BREATH; Start 06/21/20 at 07:45; Status UNV Albuterol Sulfate (Ventolin Hfa) 1 puff PRN Q6HRS PRN INH WHEEZES Last administered on 06/21/20at 08:42; Start 06/21/20 at 08:15 Aspirin (Ecotrin) 81 mg DAILYWBKFT PO ; Start 06/22/20 at 08:00 Benzonatate (Tessalon Perle) 100 mg [id number] PO Last administered on 06/21/20at 22:26; Start 06/21/20 at 14:00 Carvedilol (Coreg) 6.25 mg BIDWMEALS PO Last administered on 06/21/20at 17:12; Start 06/21/20 at 10:30 Furosemide (Lasix) 40 mg DAILY PO ; Start 06/22/20 at 09:00 Lisinopril (Prinivil) 2.5 mg DAILY PO Last administered on 06/21/20at 10:56; Start 06/21/20 at 10:30 Insulin Human Lispro (HumaLOG) 0-9 UNITS TIDWMEALS SQ Last administered on 06/21/20at 17:14; Start 06/21/20 at 12:00 Dextrose (Dextrose 50%-Water Syringe) 12.5 gm PRN Q15MIN PRN IV SEE COMMENTS; Start 06/21/20 at 10:15 Prednisone (Prednisone) 60 mg DAILY PO Last administered on 06/21/20at 10:55; Start 06/21/20 at 11:00 Albuterol/ Ipratropium (Combivent Respimat 20-100 Mcg) 1 puff Q4HRS W/A INH Last administered on 06/22/20at 06:00; Start 06/21/20 at 12:00 Potassium Chloride (Klor-Con) 40 meq 1X ONCE PO Last administered on 06/21/20at 10:55; Start 06/21/20 at 10:15; Stop 06/21/20 at 10:16; Status DC Doxycycline Hyclate (Vibra-Tab) 100 mg BID PO Last administered on 06/21/20at 22:26; Start 06/21/20 at 21:00 Doxycycline Hyclate (Vibra-Tab) 100 mg 1X ONCE PO Last administered on 06/21/20at 10:56; Start 06/21/20 at 10:30; Stop 06/21/20 at 10:31; Status DC Ceftriaxone Sodium (Rocephin) 1 gm Q24H IVP Last administered on 06/21/20at 10:56; Start 06/21/20 at 10:30 Lactobacillus Rhamnosus (Culturelle) 1 cap BID PO Last administered on 06/21/20at 22:26; Start 06/21/20 at 21:00 Active Scripts Active Prednisone 20 Mg Tablet 1 Tab PO BID 5 Days Prednisone 50 Mg Tablet 1 Tab PO DAILY Doxycycline Hyclate 100 Mg Tablet 1 Tab PO BID 10 Days Potassium 25 Meq Tablet Eff (Potassium Bicarbonate/Cit Ac) 25 Meq Tablet.eff 25 Meq PO DAILY 20 Days Lasix (Furosemide) 20 Mg Tablet 1 Tab PO DAILY Lisinopril 2.5 Mg Tablet 2.5 Mg PO DAILY 30 Days Furosemide 40 Mg Tablet 40 Mg PO DAILY 30 Days Carvedilol (Carvedilol) 6.25 Mg Tablet 6.25 Mg PO BIDWMEALS 30 Days Benzonatate 100 Mg Capsule 100 Mg PO [id number] Aspirin Ec (Aspirin) 81 Mg Tablet. 81 Mg PO DAILYWBKFT Reported [quvar inhaler] Proair Hfa Inhaler (Albuterol Sulfate) 8.5 Gm Hfa.aer.ad 2 Puff IH PRN Q4-6HRS PRN Vitals/I & O Vital Sign - Last 24 Hours 06/21/20 06/21/20 06/21/20 06/21/20 10:34 10:56 10:56 15:00 Temp 97.8 97.2 97.8 97.2 Pulse 100 100 100 85 Resp 19 18 B/P (MAP) 150/84 (106) 150/84 150/84 156/82 (106) Pulse Ox 95 96 O2 Delivery Room Air Room Air 06/21/20 06/21/20 06/21/20 06/21/20 17:12 19:00 20:00 23:00 Temp 97.1 96.7 97.1 96.7 Pulse 85 93 77 Resp 18 18 B/P (MAP) 156/82 142/79 (100) 174/99 (124) Pulse Ox 95 95 O2 Delivery Room Air Room Air Room Air 06/22/20 06/22/20 03:00 07:00 Temp 97.6 97.6 97.6 97.6 Pulse 77 93 Resp 18 24 B/P (MAP) 161/93 (115) 149/81 (103) Pulse Ox 95 98 O2 Delivery Room Air Nasal Cannula Intake and Output 06/21/20 06/21/20 06/22/20 15:00 23:00 07:00 Intake Total 600 ml 100 ml 50 ml Balance 600 ml 100 ml 50 ml Justicifation of Admission Dx: Justifications for Admission: Justification of Admission Dx: Yes Acute COPD Exacerbation: Acute COPD Exacerbation ANN BARNES MD Jun 22, 2020 10:13
[2020-06-22] MEDS: DOXYCYCLINE HYCLATE 100 MG TABLET PO SCH (10:14)
[2020-06-22] MEDS: predniSONE 20 MG TABLET PO SCH (10:14)
[2020-06-22] MEDS: guaiFENesin DM 200MG/20MG 10 ML SYRUP PO PRN (10:14)
[2020-06-22] MEDS: LISINOPRIL 5 MG TABLET. PO SCH (10:15)
[2020-06-22] MEDS: BENZONATATE 100 MG CAPSULE. PO SCH ×2 (10:15→14:00)
[2020-06-22] MEDS: cefTRIAXone IV Push 1 GM VIAL. IVP SCH (10:15)
[2020-06-22 11:00] VITALS: BP 155/97
[2020-06-22] MEDS: ALBUTEROL SULFATE 8GM INHALER. INH PRN (11:57)
--- NOTE | 2020-06-22 13:27 | PDOC3 ---
Discharge Summary Date of Admission: Jun 21, 2020 Date of Discharge: Jun 22, 2020 Follow-Up: 3-5 days Admitting Diagnosis comment: DISCHARGE DX sepsis, acute exacerbation of COPD admit to the COVID 19 unit for eval, morbid obeisty, BMI 52 chronic combined CHF, on disability tobacco use disorder, quit 2 weeks ago, empiric antibiotic, doxycycline . dc Rocephin. Continue with oral prednisone SLEEP STUDY OUTPATIENT SOON d/c today 06/22 D/C PLANNING 24 MIN Justicifation of Admission Dx: Justicifation of Admission Dx: Justifications for Admission: Justification of Admission Dx: Yes Acute COPD Exacerbation: Acute COPD Exacerbation History of Present Illness History of Present Illness History of Present Illness History of Present Illness Sivan is a 45 year old female admit form ER with cough with green mucus production, shortness of air and chest tightness for the last 3 days. Zainabro jerseyladarius here for CHF and COPD, She states that she is gotten worse over the last 3 days, with chest tightness, no real pain, could not walk well due to dyspnea, a little better this AM she has been using her inhaler at home without benefit she has been on disability for the past 2 years due to CHF and COPD, her primary care is [facility]. Past Medical History Cardiovascular: HTN Pulmonary: Bronchitis, COPD, Pneumonia, Other GI: GERD Heme/Onc: No pertinent hx Hepatobiliary: No pertinent hx Psych: No pertinent hx Musculoskeletal: Other Rheumatologic: No pertinent hx Infectious disease: No pertinent hx Renal/: No pertinent hx Endocrine: No pertinent hx Past Surgical History Past Surgical History: Other Family History Family History: Diabetes, Heart Disease, High Cholestrol, Hypertension Social History Smoke: Quit (just 2 weeks ago) ALCOHOL: none Drugs: None Vitals Vitals Vital Signs Date Time Temp Pulse Resp B/P (MAP) Pulse Ox O2 Delivery O2 Flow Rate FiO2 06/22/20 07:00 97.6 93 24 149/81 (103) 98 Nasal Cannula 97.6 Physical Exam General: Alert, Oriented X3, Cooperative, No acute distress Heart: Regular rate Lungs: Wheezing (faint) Abdomen: Normal bowel sounds, Soft Extremities: No clubbing, No cyanosis, Other (1+ BLE edema) Skin: No breakdown Labs LABS INDICATION: Reason: soa, copd / Spl. Instructions: / History: COMPARISON: August 02, 2019 FINDINGS: Single view of chest obtained. Enlarged cardiomediastinal silhouette is again seen. Mild interstitial prominence. A new region of consolidation seen. IMPRESSION: * Mild interstitial prominence which may be a chronic finding without a definite new region of consolidation. Electronically signed by: Danish Tracey MD (06/20/2020 7:20 PM) [id number] FINAL DIAGNOSIS Problems Medical Problems: (1) COPD exacerbation Status: Acute Brief Hospital Course Ms. Laguerre is a 45 old [sex] who presented with [ COPD EXAC ] CONDITION AT DISCHARGE: Improved Discharge Medications Current Medications Methylprednisolone Sodium Succinate (SOLU-Medrol 125MG VIAL) 125 mg 1X ONCE IV Last administered on 06/20/20at 19:19; Start 06/20/20 at 18:45; Stop 06/20/20 at 18:46; Status DC Albuterol Sulfate (Ventolin Neb Soln) 10 mg 1X ONCE CONT NEB Last administered on 06/20/20at 19:05; Start 06/20/20 at 18:45; Stop 06/20/20 at 18:46; Status DC Fentanyl Citrate (Fentanyl 2ml Vial) 50 mcg 1X ONCE IVP Last administered on 06/20/20at 19:20; Start 06/20/20 at 19:15; Stop 06/20/20 at 19:16; Status DC Doxycycline Hyclate 100 mg/ Dextrose 100 ml @ 50 mls/hr 1X ONCE IV Last a dministered on 06/20/20at 20:56; Start 06/20/20 at 20:00; Stop 06/20/20 at 21:59; Status DC Ceftriaxone Sodium (Rocephin) 1 gm 1X ONCE IVP Last administered on 06/20/20at 20:51; Start 06/20/20 at 20:00; Stop 06/20/20 at 20:01; Status DC Ondansetron HCl (Zofran) 4 mg PRN Q8HRS PRN IV NAUSEA/VOMITING; Start 06/20/20 at 21:30; Stop 06/21/20 at 21:29; Status DC Albuterol/ Ipratropium (Duoneb) 3 ml RTQID NEB ; Start 06/21/20 at 08:00; Stop 06/20/20 at 21:58; Status DC Albuterol Sulfate (Ventolin Neb Soln) 2.5 mg PRN QID PRN NEB SHORTNESS OF BREATH; Start 06/20/20 at 22:00; Status Cancel Guaifenesin (Robitussin Dm) 10 ml PRN Q4HRS PRN PO COUGH Last administered on 06/22/20at 10:14; Start 06/21/20 at 07:45 Albuterol Sulfate (Ventolin Neb Soln) 8,500 mg PRN Q6HRS PRN INH SHORTNESS OF BREATH; Start 06/21/20 at 07:45; Status UNV Albuterol Sulfate (Ventolin Hfa) 1 puff PRN Q6HRS PRN INH WHEEZES Last administered on 06/22/20 11:57; Start 06/21/20 at 08:15 Aspirin (Ecotrin) 81 mg DAILYWBKFT PO Last administered on 06/22/20at 10:14; Start 06/22/20 at 08:00 Benzonatate (Tessalon Perle) 100 mg [id number] PO Last administered on 06/22/20 10:15; Start 06/21/20 at 14:00 Carvedilol (Coreg) 6.25 mg BIDWMEALS PO Last administered on 06/22/20 10:13; Start 06/21/20 at 10:30 Furosemide (Lasix) 40 mg DAILY PO Last administered on 06/22/20at 10:14; Start 06/22/20 at 09:00 Lisinopril (Prinivil) 2.5 mg DAILY PO Last administered on 06/22/20at 10:15; Start 06/21/20 at 10:30 Insulin Human Lispro (HumaLOG) 0-9 UNITS TIDWMEALS SQ Last administered on 06/21/20at 17:14; Start 06/21/20 at 12:00 Dextrose (Dextrose 50%-Water Syringe) 12.5 gm PRN Q15MIN PRN IV SEE COMMENTS; Start 06/21/20 at 10:15 Prednisone (Prednisone) 60 mg DAILY PO Last administered on 06/22/20at 10:14; Start 06/21/20 at 11:00 Albuterol/ Ipratropium (Combivent Respimat 20-100 Mcg) 1 puff Q4HRS W/A INH Last administered on 06/22/20at 11:57; Start 06/21/20 at 12:00 Potassium Chloride (Klor-Con) 40 meq 1X ONCE PO Last administered on 06/21/20at 10:55; Start 06/21/20 at 10:15; Stop 06/21/20 at 10:16; Status DC Doxycycline Hyclate (Vibra-Tab) 100 mg BID PO Last administered on 06/22/20at 10:14; Start 06/21/20 at 21:00 Doxycycline Hyclate (Vibra-Tab) 100 mg 1X ONCE PO Last administered on 06/21/20at 10:56; Start 06/21/20 at 10:30; Stop 06/21/20 at 10:31; Status DC Ceftriaxone Sodium (Rocephin) 1 gm Q24H IVP Last administered on 06/22/20at 10:15; Start 06/21/20 at 10:30 Lactobacillus Rhamnosus (Culturelle) 1 cap BID PO Last administered on 06/22/20at 10:13; Start 06/21/20 at 21:00 Active Scripts Active Prednisone 20 Mg Tablet 1 Tab PO BID 5 Days Prednisone 50 Mg Tablet 1 Tab PO DAILY Doxycycline Hyclate 100 Mg Tablet 1 Tab PO BID 10 Days Potassium 25 Meq Tablet Eff (Potassium Bicarbonate/Cit Ac) 25 Meq Tablet.eff 25 Meq PO DAILY 20 Days Lasix (Furosemide) 20 Mg Tablet 1 Tab PO DAILY Lisinopril 2.5 Mg Tablet 2.5 Mg PO DAILY 30 Days Furosemide 40 Mg Tablet 40 Mg PO DAILY 30 Days Carvedilol (Carvedilol) 6.25 Mg Tablet 6.25 Mg PO BIDWMEALS 30 Days Benzonatate 100 Mg Capsule 100 Mg PO [id number] Aspirin Ec (Aspirin) 81 Mg Tablet.dr 81 Mg PO DAILYWBKFT Reported [quvar inhaler] Proair Hfa Inhaler (Albuterol Sulfate) 8.5 Gm Hfa.aer.ad 2 Puff IH PRN Q4-6HRS PRN Vital Signs Vital Signs Date Time Temp Pulse Resp B/P (MAP) Pulse Ox O2 Delivery O2 Flow Rate FiO2 06/22/20 11:00 97.8 89 18 155/97 (116) 96 Room Air 97.8 Labs Laboratory Tests Test 06/20/20 18:45 06/20/20 19:21 06/20/20 20:40 06/21/20 11:06 White Blood Count 7.4 x10^3/uL (4.0-11.0) Red Blood Count 4.23 x10^6/uL (3.50-5.40) Hemoglobin 13.2 g/dL (12.0-15.5) Hematocrit 38.9 % (36.0-47.0) Mean Corpuscular Volume 92 fL (79-100) Mean Corpuscular Hemoglobin 31 pg (25-35) Mean Corpuscular Hemoglobin Concent 34 g/dL (31-37) Red Cell Distribution Width 13.6 % (11.5-14.5) Platelet Count 184 x10^3/uL (140-400) Neutrophils (%) (Auto) 79 % (31-73) Lymphocytes (%) (Auto) 11 % (24-48) Monocytes (%) (Auto) 9 % (0-9) Eosinophils (%) (Auto) 2 % (0-3) Basophils (%) (Auto) 0 % (0-3) Neutrophils # (Auto) 5.8 x10^3/uL (1.8-7.7) Lymphocytes # (Auto) 0.8 x10^3/uL (1.0-4.8) Monocytes # (Auto) 0.6 x10^3/uL (0.0-1.1) Eosinophils # (Auto) 0.2 x10^3/uL (0.0-0.7) Basophils # (Auto) 0.0 x10^3/uL (0.0-0.2) Sodium Level 136 mmol/L (136-145) Potassium Level 3.4 mmol/L (3.5-5.1) Chloride Level 101 mmol/L (98-107) Carbon Dioxide Level 29 mmol/L (21-32) Anion Gap 6 (6-14) Blood Urea Nitrogen 7 mg/dL (7-20) Creatinine 0.8 mg/dL (0.6-1.0) Estimated GFR (Cockcroft-Gault) 76.9 BUN/Creatinine Ratio 9 (6-20) Glucose Level 204 mg/dL (70-99) Calcium Level 8.7 mg/dL (8.5-10.1) Total Bilirubin 1.0 mg/dL (0.2-1.0) Aspartate Amino Transf (AST/SGOT) 27 U/L (15-37) Alanine Aminotransferase (ALT/SGPT) 45 U/L (14-59) Alkaline Phosphatase 91 U/L (46-116) Troponin I Quantitative < 0.017 ng/mL (0.000-0.055) PN-Kwq-N-Type Natriuretic Peptide 580 pg/mL (0-124) Total Protein 7.8 g/dL (6.4-8.2) Albumin 3.2 g/dL (3.4-5.0) Albumin/Globulin Ratio 0.7 (1.0-1.7) O2 Saturation 95 % (92-99) Arterial Blood pH 7.40 (7.35-7.45) Arterial Blood pCO2 at Patient Temp 42 mmHg (35-46) Arterial Blood pO2 at Patient Temp 75 mmHg (75-108) Arterial Blood HCO3 26 mmol/L (21-28) Arterial Blood Base Excess 1 mmol/L (-3-3) Oxyhemoglobin 94.1 % Methemoglobin 0.4 % (0.0-1.9) Carbon Monoxide, Quantitative 0.4 % (0.0-1.9) FiO2 21 Coronavirus (PCR) Not detected (Not Detected) Glucose (Fingerstick) 255 mg/dL (70-99) Test 06/21/20 16:38 06/21/20 22:53 06/22/20 07:50 06/22/20 11:21 Glucose (Fingerstick) 266 mg/dL (70-99) 255 mg/dL (70-99) 179 mg/dL (70-99) 261 mg/dL (70-99) Laboratory Tests Test 06/21/20 16:38 06/21/20 22:53 06/22/20 07:50 06/22/20 11:21 Glucose (Fingerstick) 266 mg/dL (70-99) 255 mg/dL (70-99) 179 mg/dL (70-99) 261 mg/dL (70-99) Allergies Allergies Coded Allergies Type Severity Reaction Last Updated Verified No Known Drug Allergies 07/29/15 No Disposition/Orders: D/C to Home Justicifation of Admission Dx: Justifications for Admission: Justification of Admission Dx: Yes Acute COPD Exacerbation: Acute COPD Exacerbation ANN BARNES MD Jun 22, 2020 13:27
[2020-06-22] MEDS ORDERED: PRED20TA PO (13:31)
[2020-06-22] MEDS ORDERED: LACT1CAP19 PO (13:31)
[2020-06-22] MEDS ORDERED: DOXY100T PO (13:31)
[2020-06-22] MEDS ORDERED: IPRA4AER INH (13:31)
[2020-06-22] MEDS ORDERED: INSU100V35 SQ (13:31)
--- NOTE | 2020-06-22 13:32 | DISCH ---
DISCHARGE INSTRUCTIONS Condition on Discharge Condition on Discharge: Stable Activity After Discharge Activity Instructions for Disc: No restrictions Driving Instructions after Dis: Do not drive today Weight Bearing Status after Di: Full weight bearing Diet after Discharge Diet after Discharge: Cardiac, Diabetic No Calorie Level Checks after Discharge Checks after discharge: Check blood press - daily, Weigh Yourself Daily Contacting the DR. after DC Call your doctor for: If your condition worsens Treatment/Equipment after DC Adaptive Equipment Issued: None Discharge Respiratory Equipmen: Nebulizer ANN BARNES MD Jun 22, 2020 13:32
--- NOTE | 2020-06-22 17:02 | NUR ---
SW following. Reviewed chart and discussed with RN. Pt from home on room air and oral medications. Pt to discharge home today self-care. No further SW needs at this time.
== END 2020-06-22 15:00 | disposition home or self-care (01) | DRG 872 ==
LOC: ER 17:49 → ED HOLD 21:19 → 6 SOUTH 23:22
PROVIDERS: ADMIT Internal Medicine; ATTEND Internal Medicine
DX: A41.9 Sepsis, unspecified organism (principal); Z68.43 Body mass index [BMI] 50.0-59.9, adult; I50.42 Chronic combined systolic (congestive) and diastolic (congestive) heart failure; J44.0 Chronic obstructive pulmonary disease with (acute) lower respiratory infection; J44.1 Chronic obstructive pulmonary disease with (acute) exacerbation; J20.9 Acute bronchitis, unspecified; I11.0 Hypertensive heart disease with heart failure; Z20.828 Contact with and (suspected) exposure to other viral communicable diseases; Z82.49 Family history of ischemic heart disease and other diseases of the circulatory system; Z83.3 Family history of diabetes mellitus; Z87.891 Personal history of nicotine dependence; K21.9 Gastro-esophageal reflux disease without esophagitis; E66.01 Morbid (severe) obesity due to excess calories
CPT/HCPCS: 36415; 36600; 71045; 80053; 82805; 82962; 83880; 84484; 85025; 93005; 94640; 94644; 96365; 96375; 99285; J0696; J1815; J2930; J3010; J3490; J7060; J7512; G0378; J7613; U0003-CS

== ENCOUNTER 2021-04-07 09:14 | Inpatient (IN) | payer OTHER ==
[~2021-04-07] VITALS: Ht 160 cm; Wt 120.3 kg
[~2021-04-07 09:14] MED LIST changes: +INSU100V35 SQ; +IPRA4AER INH; +LACT1CAP19 PO
[2021-04-07] MEDS ORDERED: IPRATRPIUM/ALBUTEROL 0.5/2.5MG 3 ML NEBU. NEB ONE (09:45)
--- NOTE | 2021-04-07 09:56 | RAD ---
EXAM: Chest, single view. HISTORY: Shortness of air. COMPARISON: 06/20/2020 FINDINGS: A frontal view of the chest is obtained. There is no consolidation, pleural effusion or pne umothorax. There is stable suspected chronic interstitial prominence. There is a stable prominent car diac silhouette. IMPRESSION: Stable diffuse interstitial prominence and prominent cardiac silhouette. Correlate for co ngestion. Electronically signed by: Brook Suarez MD (04/07/2021 9:54 AM) [id number]
[2021-04-07] MEDS ORDERED: DEXAMETHASONE 4 MG TABLET PO ONE (10:00)
[2021-04-07 10:03] LABS: BASO % 1 % (0-3); EOS # 0.1 x10^3/uL (0.0-0.7); EOS % 1 % (0-3); HEMATOCRIT 40.2 % (36.0-47.0); HEMOGLOBIN 13.7 g/dL (12.0-15.5); LYMPH # 1.3 x10^3/uL (1.0-4.8); LYMPH % 14 % (24-48); MEAN CORPUSCULAR HEMOGLOBIN 31 pg (25-35); MEAN CORPUSCULAR HGB CONC 34 g/dL (31-37); MEAN CORPUSCULAR VOLUME 90 fL (79-100); MONO # 0.6 x10^3/uL (0.0-1.1); MONO % 7 % (0-9); NEUT # 6.7 x10^3/uL (1.8-7.7); NEUT % 77 % (31-73); PLATELET COUNT 202 x10^3/uL (140-400); RED BLOOD COUNT 4.47 x10^6/uL (3.50-5.40); RED CELL DISTRIBUTION WIDTH 14.1 % (11.5-14.5); WHITE BLOOD COUNT 8.8 x10^3/uL (4.0-11.0)
[2021-04-07 10:11] LABS: CALCIUM 8.9 mg/dL (8.5-10.1); GFR 59.4; POTASSIUM 3.4 mmol/L (3.5-5.1)
[2021-04-07 10:17] LABS: ALBUMIN 3.4 g/dL (3.4-5.0); ALBUMIN/GLOBULIN RATIO 0.8 (1.0-1.7); TOTAL BILIRUBIN 0.8 mg/dL (0.2-1.0); TOTAL PROTEIN 7.8 g/dL (6.4-8.2)
--- NOTE | 2021-04-07 10:25 | PHYS DOC ---
Past Medical History Past Medical History: Asthma, CHF, COPD, Hypertension Additional Past Medical Histor: "HEART WEAK" Past Surgical History: No Surgical History Smoking Status: Former Smoker Alcohol Use: None Drug Use: None General Adult EDM: Chief Complaint: SHORTNESS OF BREATH HPI: HPI: 45-year-old female past medical history of hypertension, CHF (diastolic and systolic) and COPD presents to the ED with complaints of shortness of breath stating it's not exactly like her copd," feels like there is more pressure in my chest than normal," describes sxs as intermittent, for the past 2 days. Denies any history of Covid. History of cardiac cath 5 years ago that required no intervention. Is pending her Covid vaccine in 3 days. Mother with history of CAD. No personal or family history of AAA, AAD, CTD ([place] or [place]), cardiac arrhythmias (need for AICD), sudden or unexplainable (under 50 years of age or with exertion), or clotting disorders. EMR was reviewed and patient had no evidence of coronary disease in 2016, EF of 25 to 30%. Review of Systems: Review of Systems: Constitutional: Denies fever or chills. [] Eyes: Denies change in visual acuity. [] HENT: Denies nasal congestion or sore throat. [] Respiratory: Denies cough or hemoptysis Cardiovascular: Denies syncope or edema. [] GI: Denies abdominal pain, nausea, vomiting, bloody stools or diarrhea. [] : Denies dysuria or vaginal bleeding Musculoskeletal: Denies back pain or joint pain. [] Integument: Denies rash or diaphoresis Neurologic: Denies headache, focal weakness or sensory changes. [] Endocrine: Denies polyuria or polydipsia. [] Lymphatic: Denies swollen glands. [] Psychiatric: Denies depression or anxiety. [] Heart Score: C/O Chest Pain: Yes HEART Score for Chest Pain: HEART Score for Chest Pain Response (Comments) Value History Slighlty/Non-Suspicious 0 ECG Nonspecific Repolarizatio 1 Age >45 - < 65 1 Risk Factors >3 Risk Factors or Hx CAD 2 Troponin < Normal Limit 0 Total 4 Risk Factors: Risk Factors: DM, Current or recent (<one month) smoker, HTN, HLP, family history of CAD, obesity. Risk Scores: Score 0 - 3: 2.5% MACE over next 6 weeks - Discharge Home Score 4 - 6: 20.3% MACE over next 6 weeks - Admit for Clinical Observation Score 7 - 10: 72.7% MACE over next 6 weeks - Early Invasive Strategies Current Medications: Current Medications Medications (Trade) Dose Ordered Sig/Hernandez Start Time Stop Time Status Last Admin Dose Admin Albuterol/ Ipratropium (Duoneb) 9 ml 1X ONCE 04/07/21 09:45 04/07/21 09:46 DC 04/07/21 09:57 9 ML Dexamethasone (Decadron) 10 mg 1X ONCE 04/07/21 10:00 04/07/21 10:01 DC 04/07/21 09:46 10 MG Allergies: Allergies: Allergies Coded Allergies Type Severity Reaction Last Updated Verified No Known Drug Allergies 07/29/15 No Physical Exam: PE: Constitutional: Well developed, well nourished, no acute distress, non-toxic appearance. HENT: Normocephalic, atraumatic, Eyes: EOMI, conjunctiva normal, no discharge. Neck: Normal range of motion, supple, Cardiovascular: S1/2 present, regular rhythm Lungs & Thorax: Speaking in full sentences, bilateral equal chest rise, no tachypnea or increased work of breathing, clear lung sounds before and after DuoNeb treatments, no wheezing/rales/crackles Abdomen: soft, no tenderness, Skin: Warm, dry, no erythema, no rash. [] Back: No tenderness, no CVA tenderness. [] Extremities: No tenderness, no cyanosis, no unilateral lower extremity edema Neurologic: Alert and oriented X 3, normal motor function, normal sensory function, no focal deficits noted. [] Psychologic: Affect normal, judgement normal, mood normal. [] Current Patient Data: Labs: Laboratory Tests Test 04/07/21 09:50 White Blood Count 8.8 x10^3/uL (4.0-11.0) Red Blood Count 4.47 x10^6/uL (3.50-5.40) Hemoglobin 13.7 g/dL (12.0-15.5) Hematocrit 40.2 % (36.0-47.0) Mean Corpuscular Volume 90 fL (79-100) Mean Corpuscular Hemoglobin 31 pg (25-35) Mean Corpuscular Hemoglobin Concent 34 g/dL (31-37) Red Cell Distribution Width 14.1 % (11.5-14.5) Platelet Count 202 x10^3/uL (140-400) Neutrophils (%) (Auto) 77 % (31-73) H Lymphocytes (%) (Auto) 14 % (24-48) L Monocytes (%) (Auto) 7 % (0-9) Eosinophils (%) (Auto) 1 % (0-3) Basophils (%) (Auto) 1 % (0-3) Neutrophils # (Auto) 6.7 x10^3/uL (1.8-7.7) Lymphocytes # (Auto) 1.3 x10^3/uL (1.0-4.8) Monocytes # (Auto) 0.6 x10^3/uL (0.0-1.1) Eosinophils # (Auto) 0.1 x10^3/uL (0.0-0.7) Basophils # (Auto) 0.0 x10^3/uL (0.0-0.2) Sodium Level 134 mmol/L (136-145) L Potassium Level 3.4 mmol/L (3.5-5.1) L Chloride Level 98 mmol/L (98-107) Carbon Dioxide Level 31 mmol/L (21-32) Anion Gap 5 (6-14) L Blood Urea Nitrogen 9 mg/dL (7-20) Creatinine 1.0 mg/dL (0.6-1.0) Estimated GFR (Cockcroft-Gault) 59.4 BUN/Creatinine Ratio 9 (6-20) Glucose Level 423 mg/dL (70-99) H Calcium Level 8.9 mg/dL (8.5-10.1) Total Bilirubin 0.8 mg/dL (0.2-1.0) Aspartate Amino Transferase (AST) 15 U/L (15-37) Alanine Aminotransferase (ALT) 47 U/L (14-59) Alkaline Phosphatase 120 U/L (46-116) H Total Protein 7.8 g/dL (6.4-8.2) Albumin 3.4 g/dL (3.4-5.0) Albumin/Globulin Ratio 0.8 (1.0-1.7) L Laboratory Tests 04/07/21 09:50 Laboratory Tests 04/07/21 09:50 Vital Signs: Vital Signs Date Time Temp Pulse Resp B/P (MAP) Pulse Ox O2 Delivery O2 Flow Rate FiO2 04/07/21 09:57 97 Room Air 04/07/21 09:20 97.6 87 18 152/104 (120) 97.6 EKG: EKG: Normal sinus rhythm at 79 bpm, no axis deviation, QTC 487, T wave inversion 1 aVL, no obvious ST elevations or ST depressions Radiology/Procedures: Radiology/Procedures: IMAGING REPORT Signed PATIENT: CAREY FONTANEZ ACCOUNT: [id number] : 1975 LOCATION: ER AGE: 45 SEX: F EXAM STATUS: PRE ER ORD. PHYSICIAN: MARY CRESPO DO REASON: soa PROCEDURE: PORTABLE CHEST 1V EXAM: Chest, single view. HISTORY: Shortness of air. COMPARISON: 06/20/2020 FINDINGS: A frontal view of the chest is obtained. There is no consolidation, pleural effusion or pneumothorax. There is stable suspected chronic interstitial prominence. There is a stable prominent cardiac silhouette. IMPRESSION: Stable diffuse interstitial prominence and prominent cardiac silhouette. Correlate for congestion. Electronically signed by: Borok Matthews MD (04/07/2021 9:54 AM) [id number] DICTATED and SIGNED BY: BROOK MATTHEWS MD DATE: 04/07/21 [id number] IMAGING REPORT Signed PATIENT: CAREY FONTANEZ ACCOUNT: [id number] : 1975 LOCATION: ER AGE: 45 SEX: F EXAM STATUS: REG ER ORD. PHYSICIAN: MARY CRESPO DO REASON: soa, clear lungs, r/o pe PROCEDURE: CT ANGIOGRAPHY CHEST EXAM: CT angiography of the chest with intravenous contrast. HISTORY: Shortness of air. TECHNIQUE: Computed tomographic images of the chest were obtained following the administration of intravenous contrast according to angiography protocol. Multiplanar reformatting was performed and three dimensional maximum intensity projection images were obtained. *One or more of the following individualized dose reduction techniques were utilized for this examination: 1. Automated exposure control. 2. Adjustment of the mA and/or kV according to patient size. 3. Use of iterative reconstruction technique. COMPARISON: 12/24/2015. FINDINGS: There is suboptimal contrast opacification of the pulmonary arteries. No central pulmonary embolism is seen. The distal pulmonary arteries are not well assessed. There is cardiomegaly. The aorta is normal in caliber. There are nonspecific mediastinal and hilar lymph nodes. There is no pneumothorax or pleural effusion. There is medial right middle lobe and lingular atelectasis or scarring. There is posterior dependent and basilar atelectasis. There is no consolidation. There is no suspicious pulmonary nodule. There is hepatomegaly and hepatic steatosis. There are splenic granulomas. There is no suspicious or acute osseous finding. IMPRESSION: 1. Limited evaluation for pulmonary embolism due to suboptimal contrast opacification of the pulmonary arteries. No central embolism is seen. 2. Prominent mediastinal and hilar lymph nodes, likely reactive or physiologic in etiology. 3. Hepatomegaly and hepatic steatosis. Electronically signed by: Brook Matthews MD (04/07/2021 12:46 PM) [id number] DICTATED and SIGNED BY: BROOK MATTHEWS MD DATE: 04/07/21 [id number] Course & Med Decision Making: Course & Med Decision Making Pertinent Labs and Imaging studies reviewed. (See chart for details) Concern for dyspnea w/"chest pressure," in a pt with known heart failure, now w/new onset diabetes. Heart score 4. Will admit for further medical management. Patient stable at time of admission and agrees with this plan. I have spoken with the patient and/or caregivers. I have explained the patient's condition, diagnosis and treatment plan based on the information available to me at this time. I have answered the patient's and/or caregivers questions and answered any concerns. The patient and/or caregivers have as good an understanding of the patient's diagnosis, condition and treatment plan as can be expected at this point. The patient has been stabilized within the capability of the emergency department. The patient will be transported for further care and management or will be moved to an observation or inpatient serv ice. I have communicated with the staff or medical practitioner taking over this patient's care. Shelley Disclaimer: Shelley Disclaimer: This electronic medical record was generated, in whole or in part, using a voice recognition dictation system. Departure Departure Impression: Primary Impression: Chest pain Additional Impressions: Dyspnea Diabetes mellitus, new onset Disposition: ADMITTED INPATIENT Admitting Physician: TANYA (Dr. Burt) Condition: STABLE Referrals: NO PCP (PCP) MARY CRESPO DO April 07, 2021 10:25
[2021-04-07] MEDS ORDERED: CONTRAST GIVEN. MC PRN (12:30)
--- NOTE | 2021-04-07 12:48 | RAD ---
EXAM: CT angiography of the chest with intravenous contrast. HISTORY: Shortness of air. TECHNIQUE: Computed tomographic images of the chest were obtained following the administration of int ravenous contrast according to angiography protocol. Multiplanar reformatting was performed and three dimensional maximum intensity projection images were obtained. *One or more of the following individualized dose reduction techniques were utilized for this examina tion: 1. Automated exposure control. 2. Adjustment of the mA and/or kV according to patient size. 3. Use of iterative reconstruction technique. COMPARISON: 12/24/2015. FINDINGS: There is suboptimal contrast opacification of the pulmonary arteries. No central pulmonary embolism is seen. The distal pulmonary arteries are not well assessed. There is cardiomegaly. The aor ta is normal in caliber. There are nonspecific mediastinal and hilar lymph nodes. There is no pneumot horax or pleural effusion. There is medial right middle lobe and lingular atelectasis or scarring. Th ere is posterior dependent and basilar atelectasis. There is no consolidation. There is no suspicious pulmonary nodule. There is hepatomegaly and hepatic steatosis. There are splenic granulomas. There i s no suspicious or acute osseous finding. IMPRESSION: 1. Limited evaluation for pulmonary embolism due to suboptimal contrast opacification of the pulmonar y arteries. No central embolism is seen. 2. Prominent mediastinal and hilar lymph nodes, likely reactive or physiologic in etiology. 3. Hepatomegaly and hepatic steatosis. Electronically signed by: Brook Suarez MD (04/07/2021 12:46 PM) [id number]
[2021-04-07] MEDS ORDERED: IOHEXOL 350 MG/ML 100 ML VIAL. IV ONE (13:00)
[2021-04-07 14:10] VITALS: BP 145/93
--- NOTE | 2021-04-07 14:20 | PDOC1 ---
History and Physical Date of Admission Date of Admission DATE: 04/07/21 TIME: 14:25 Identification/Chief Complaint Chief Complaint Shortness of breath Source Source: Chart review, Patient History of Present Illness History of Present Illness Patient is a 45-year-old female with past medical history CHF, COPD, HTN, who presents to the ED with complaints of shortness of breath for the past 2 days. She reports associated chest heaviness and wheezing. She treated herself with her home albuterol and breathing treatment without significant improvement. Upon arrival in the ED she received Decadron 10 mg IV and duo nebulizer with improvement in her shortness of breath, wheezing, and chest heaviness. Upon chart review, she had a left heart cath and 05/03/2016 that showed severe LV systolic dysfunction, EF 15-20%; no significant obstructive coronary artery disease. She was recommended aggressive medical therapy and reassessment of EF in 3 months. A repeat repeat echocardiogram on 11/13/2016 showed EF 15-20% with severe global hypokinesis. Initial lab work in the ED showed troponin 0.029, BNP 881, CBG 423, K 3.4, Na 134. Due to concerns for PE, CTA of chest was obtained that showed no evidence of PE. Of note, patient is somewhat of a poor historian in regards to her medication complaints. In review of her current medications she has multiple contraindication medications including BECKY-I and ARB's together. She states that she was scheduled for an AICD to be placed at , but this was postponed due to COVID-19. She has not followed up at because she states she did not like her setter up there. Due to her significant cardiac risk factors will admit patient for further monitoring. Past Medical History Cardiovascular: CHF, HTN Pulmonary: Bronchitis, COPD, Pneumonia, Other GI: GERD Heme/Onc: No pertinent hx Hepatobiliary: No pertinent hx Psych: No pertinent hx Musculoskeletal: Other Rheumatologic: No pertinent hx Infectious disease: No pertinent hx Renal/: No pertinent hx Endocrine: Diabetes Past Surgical History Past Surgical History Left heart cath Family History Family History: Diabetes, Heart Disease, High Cholestrol, Hypertension Social History Smoke: Quit ALCOHOL: none Drugs: None Current Problem List Problem List Problems Medical Problems: (1) Chest pain Status: Acute (2) Diabetes mellitus, new onset Status: Acute (3) Dyspnea Status: Acute Current Medications Current Medications Current Medications Albuterol/ Ipratropium (Duoneb) 9 ml 1X ONCE NEB Last administered on 04/07/21at 09:57; Start 04/07/21 at 09:45; Stop 04/07/21 at 09:46; Status DC Dexamethasone (Decadron) 10 mg 1X ONCE PO Last administered on 04/07/21at 09:46; Start 04/07/21 at 10:00; Stop 04/07/21 at 10:01; Status DC Iohexol (Omnipaque 350 Mg/ml) 100 ml 1X ONCE IV Last administered on 04/07/21at 12:37; Start 04/07/21 at 13:00; Stop 04/07/21 at 13:01; Status DC Info (CONTRAST GIVEN -- Rx MONITORING) 1 each PRN DAILY PRN MC SEE COMMENTS; Start 04/07/21 at 12:30; Stop 04/09/21 at 12:29 Active Scripts Active Admelog (Insulin Lispro) 100 Unit/1 Ml Vial 0 Units SQ TIDWMEALS 30 Days Prednisone 20 Mg Tablet 60 Mg PO DAILY 7 Days Culturelle (Lactobacillus Rhamnosus Gg) 1 Each Cap.sprink 1 Cap PO BID 30 Days Combivent Respimat Inhal (Ipratropium/Albuterol Sulfate) 4 Gm Aer.w.adap 1 Puff INH Q4HRS W/A 30 Days Doxycycline Hyclate 100 Mg Tablet 100 Mg PO BID 10 Days Potassium 25 Meq Tablet Eff (Potassium Bicarbonate/Cit Ac) 25 Meq Tablet.eff 25 Meq PO DAILY 20 Days Lisinopril 2.5 Mg Tablet 2.5 Mg PO DAILY 30 Days Furosemide 40 Mg Tablet 40 Mg PO DAILY 30 Days Carvedilol (Carvedilol) 6.25 Mg Tablet 6.25 Mg PO BIDWMEALS 30 Days Benzonatate 100 Mg Capsule 100 Mg PO [id number] Aspirin Ec (Aspirin) 81 Mg Tablet. 81 Mg PO [id number] Reported [quvar inhaler] Proair Hfa Inhaler (Albuterol Sulfate) 8.5 Gm Hfa.aer.ad 2 Puff IH PRN Q4-6HRS PRN Allergies Allergies: Coded Allergies: No Known Drug Allergies (Unverified , 07/29/15) ROS Review of System GENERAL: No history of weight change, weakness or fevers. SKIN: No bruising, hair changes or rashes. EYES: No blurred, double or loss of vision. NOSE AND THROAT: No history of nosebleeds, hoarseness or sore throat. HEART: Chest pressure. Denies chest pain, denies palpitations. LUNGS: Shortness of breath and wheezing. Denies cough or hemoptysis GASTROINTESTINAL: Denies nausea, vomiting, abdominal pain. GENITOURINARY: Denies dysuria, frequency, urgency, hematuria. NEUROLOGIC: Denies history of numbness, tingling, tremor or weakness. PSYCHIATRIC: Denies anxiety, denies depression. ENDOCRINE: No history of heat or cold intolerance, polyuria or polydipsia. EXTREMITIES: Denies muscle weakness, joint pain, pain on walking or stiffness. Physical Exam Physical Exam General: Alert, Oriented X3, Cooperative, No acute distress. Morbidly obese. HEENT: PERRLA, EOMI Lungs: Clear to auscultation, Normal air movement Heart: RRR, no murmurs Cardiovascular: S1, S2 Abdomen: Normal bowel sounds, Soft, No tenderness Extremities: No clubbing, No cyanosis Skin: No rashes, No significant lesion Neuro: Normal speech, Normal tone, Sensation intact Psych/Mental Status: Mental status NL, Mood NL Vitals Vitals Vital Signs Date Time Temp Pulse Resp B/P (MAP) Pulse Ox O2 Delivery O2 Flow Rate FiO2 04/07/21 12:52 65 160/77 (104) 95 Room Air 04/07/21 09:20 97.6 18 97.6 Labs Labs Laboratory Tests Test 04/07/21 09:50 White Blood Count 8.8 x10^3/uL (4.0-11.0) Red Blood Count 4.47 x10^6/uL (3.50-5.40) Hemoglobin 13.7 g/dL (12.0-15.5) Hematocrit 40.2 % (36.0-47.0) Mean Corpuscular Volume 90 fL (79-100) Mean Corpuscular Hemoglobin 31 pg (25-35) Mean Corpuscular Hemoglobin Concent 34 g/dL (31-37) Red Cell Distribution Width 14.1 % (11.5-14.5) Platelet Count 202 x10^3/uL (140-400) Neutrophils (%) (Auto) 77 % (31-73) Lymphocytes (%) (Auto) 14 % (24-48) Monocytes (%) (Auto) 7 % (0-9) Eosinophils (%) (Auto) 1 % (0-3) Basophils (%) (Auto) 1 % (0-3) Neutrophils # (Auto) 6.7 x10^3/uL (1.8-7.7) Lymphocytes # (Auto) 1.3 x10^3/uL (1.0-4.8) Monocytes # (Auto) 0.6 x10^3/uL (0.0-1.1) Eosinophils # (Auto) 0.1 x10^3/uL (0.0-0.7) Basophils # (Auto) 0.0 x10^3/uL (0.0-0.2) Sodium Level 134 mmol/L (136-145) Potassium Level 3.4 mmol/L (3.5-5.1) Chloride Level 98 mmol/L (98-107) Carbon Dioxide Level 31 mmol/L (21-32) Anion Gap 5 (6-14) Blood Urea Nitrogen 9 mg/dL (7-20) Creatinine 1.0 mg/dL (0.6-1.0) Estimated GFR (Cockcroft-Gault) 59.4 BUN/Creatinine Ratio 9 (6-20) Glucose Level 423 mg/dL (70-99) Calcium Level 8.9 mg/dL (8.5-10.1) Total Bilirubin 0.8 mg/dL (0.2-1.0) Aspartate Amino Transf (AST/SGOT) 15 U/L (15-37) Alanine Aminotransferase (ALT/SGPT) 47 U/L (14-59) Alkaline Phosphatase 120 U/L (46-116) Troponin I Quantitative 0.029 ng/mL (0.000-0.055) CJ-Ifw-O-Type Natriuretic Peptide 881 pg/mL (0-124) Total Protein 7.8 g/dL (6.4-8.2) Albumin 3.4 g/dL (3.4-5.0) Albumin/Globulin Ratio 0.8 (1.0-1.7) Laboratory Tests Test 04/07/21 09:50 White Blood Count 8.8 x10^3/uL (4.0-11.0) Red Blood Count 4.47 x10^6/uL (3.50-5.40) Hemoglobin 13.7 g/dL (12.0-15.5) Hematocrit 40.2 % (36.0-47.0) Mean Corpuscular Volume 90 fL (79-100) Mean Corpuscular Hemoglobin 31 pg (25-35) Mean Corpuscular Hemoglobin Concent 34 g/dL (31-37) Red Cell Distribution Width 14.1 % (11.5-14.5) Platelet Count 202 x10^3/uL (140-400) Neutrophils (%) (Auto) 77 % (31-73) Lymphocytes (%) (Auto) 14 % (24-48) Monocytes (%) (Auto) 7 % (0-9) Eosinophils (%) (Auto) 1 % (0-3) Basophils (%) (Auto) 1 % (0-3) Neutrophils # (Auto) 6.7 x10^3/uL (1.8-7.7) Lymphocytes # (Auto) 1.3 x10^3/uL (1.0-4.8) Monocytes # (Auto) 0.6 x10^3/uL (0.0-1.1) Eosinophils # (Auto) 0.1 x10^3/uL (0.0-0.7) Basophils # (Auto) 0.0 x10^3/uL (0.0-0.2) Sodium Level 134 mmol/L (136-145) Potassium Level 3.4 mmol/L (3.5-5.1) Chloride Level 98 mmol/L (98-107) Carbon Dioxide Level 31 mmol/L (21-32) Anion Gap 5 (6-14) Blood Urea Nitrogen 9 mg/dL (7-20) Creatinine 1.0 mg/dL (0.6-1.0) Estimated GFR (Cockcroft-Gault) 59.4 BUN/Creatinine Ratio 9 (6-20) Glucose Level 423 mg/dL (70-99) Calcium Level 8.9 mg/dL (8.5-10.1) Total Bilirubin 0.8 mg/dL (0.2-1.0) Aspartate Amino Transf (AST/SGOT) 15 U/L (15-37) Alanine Aminotransferase (ALT/SGPT) 47 U/L (14-59) Alkaline Phosphatase 120 U/L (46-116) Troponin I Quantitative 0.029 ng/mL (0.000-0.055) EF-Pan-J-Type Natriuretic Peptide 881 pg/mL (0-124) Total Protein 7.8 g/dL (6.4-8.2) Albumin 3.4 g/dL (3.4-5.0) Albumin/Globulin Ratio 0.8 (1.0-1.7) Images Images PORTABLE CHEST 1V EXAM: Chest, single view. HISTORY: Shortness of air. COMPARISON: 06/20/2020 FINDINGS: A frontal view of the chest is obtained. There is no consolidation, pleural effusion or pneumothorax. There is stable suspected chronic interstitial prominence. There is a stable prominent cardiac silhouette. IMPRESSION: Stable diffuse interstitial prominence and prominent cardiac silhouette. Correlate for congestion. CT ANGIOGRAPHY CHEST EXAM: CT angiography of the chest with intravenous contrast. HISTORY: Shortness of air. TECHNIQUE: Computed tomographic images of the chest were obtained following the administration of intravenous contrast according to angiography protocol. Multiplanar reformatting was performed and three dimensional maximum intensity projection images were obtained. *One or more of the following individualized dose reduction techniques were utilized for this examination: 1. Automated exposure control. 2. Adjustment of the mA and/or kV according to patient size. 3. Use of iterative reconstruction technique. COMPARISON: 12/24/2015. FINDINGS: There is suboptimal contrast opacification of the pulmonary arteries. No central pulmonary embolism is seen. The distal pulmonary arteries are not well assessed. There is cardiomegaly. The aorta is normal in caliber. There are nonspecific mediastinal and hilar lymph nodes. There is no pneumothorax or pleural effusion. There is medial right middle lobe and lingular atelectasis or scarring. There is posterior dependent and basilar atelectasis. There is no consolidation. There is no suspicious pulmonary nodule. There is hepatomegaly and hepatic steatosis. There are splenic granulomas. There is no suspicious or acute osseous finding. IMPRESSION: 1. Limited evaluation for pulmonary embolism due to suboptimal contrast opacification of the pulmonary arteries. No central embolism is seen. 2. Prominent mediastinal and hilar lymph nodes, likely reactive or physiologic in etiology. 3. Hepatomegaly and hepatic steatosis. VTE Prophylaxis Ordered VTE Prophylaxis Devices: No VTE Pharmacological Prophylaxi: Yes Assessment/Plan Assessment/Plan Chest pressure Severe systolic CHF Acute COPD Elevated BNP Hyperglycemia HTN Plan: Will continue to trend troponins Consultation placed to cardiology Patient was advised to follow-up in [facility] regardless of how well she got along with her setter up for AICD placement Morphine, nitroglycerin as needed Will obtain limited echo Patient denies any prior diagnosis of DM2. Will obtain HbA1c and once diagnosis is confirmed will initiate on oral hypoglycemic agents as she has no knowledge of how to self inject insulin. Provide basal/prandial insulin; Resume home medication If troponins remain stable and do not elevate, I imagine she may be able to discharge tomorrow with close PCP follow-up. FEN - Cardiac diet PPX - Lovenox FULL CODE Dispo - inpatient for above Advance Care Planning: Total time spent [id number] with patient 16 minutes in discussion with goals of care, comfort care, end-of-life care, pain management, code status; patient names her boyfriend (Kylah Saleem) as surrogate decision-maker. Justifications for Admission Other Justification JADA KHAN MD April 07, 2021 14:20
[2021-04-07] MEDS ORDERED: INSULIN REGULAR 100 UNIT/ML 3ML VIAL. IV ONE (15:15)
[2021-04-07] MEDS ORDERED: IV DEXTROSE 5% 250 ML BAG. IV PRN (15:45)
[2021-04-07] MEDS ORDERED: DEXTROSE 50% 25 GM / 50ML DISP.SYRIN. IV PRN (15:45)
[2021-04-07] MEDS ORDERED: MAGNESIUM HYDROXIDE 2,400 MG/30 ML ORAL.SUSP. PO PRN (16:00)
[2021-04-07] MEDS ORDERED: NITROGLYCERIN SUBLINGUAL 0.4 MG BOTTLE OF 25. SL PRN (16:00)
[2021-04-07] MEDS ORDERED: ACETAMINOPHEN 325 MG TABLET. PO PRN (16:00)
[2021-04-07] MEDS ORDERED: BISACODYL 10 MG SUPP.RECT. PR PRN (16:00)
[2021-04-07] MEDS ORDERED: MORPHINE SULFATE 4 MG/ML VIAL. IV PRN (16:00)
[2021-04-07] MEDS ORDERED: CALCIUM CARBONATE 500 MG TAB.CHEW PO PRN (16:00)
[2021-04-07] MEDS ORDERED: MAG HYDROX/ALUMINUM HYD/SIMETH 30 ML ORAL.SUSP PO PRN (16:00)
[2021-04-07] MEDS ORDERED: ONDANSETRON PF 4 MG/2 ML VIAL. IVP PRN (16:00)
--- NOTE | 2021-04-07 16:02 | EKG ---
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
[2021-04-07] MEDS ORDERED: INSULIN LISPRO 300 UNITS/3 ML VIAL. SQ SCH (17:00)
--- NOTE | 2021-04-07 17:46 | PDOC2 ---
CONSULT Date of Consult Date of Consult DATE: 04/07/21 TIME: 17:39 Reason for Consult Reason for Consult: Heart failure, cardiomyopathy Referring Physician Referring Physician: Dr. Burt Identification/Chief Complaint Chief Complaint Shortness of breath Source Source: Chart review, Patient History of Present Illness Reason for Visit: The patient is a pleasant 45-year-old female who presented to the emergency room with 2 days of increasing shortness of breath. Over the past day the patient reports some episodes of mild chest pressure. In the emergency room initial findings included glucose of 423, troponin of 0.029 and a blood pressure of 152/104. CTA of the chest showed no central pulmonary emboli. Chest x-ray showed stable diffuse interstitial prominences. Her EKG showed no acute ischemic findings. She was treated with steroids, pulmonary treatments and has mildly diuresed overnight. She is feeling significantly better today. She has a history of severe nonischemic cardiomyopathy with an ejection fraction in the 20% range. A catheterization in 2016 here at [facility] showed an ejection fraction of 15 to 20% with no significant coronary artery disease. More recent ly she has been followed at and apparently was scheduled earlier this year for a probable AICD. She is now relatively comfortable in her bed. Past Medical History Cardiovascular: CAD, CHF, HTN Pulmonary: Bronchitis, COPD, Pneumonia, Other GI: GERD Heme/Onc: No pertinent hx Hepatobiliary: No pertinent hx Psych: No pertinent hx Musculoskeletal: Other Rheumatologic: No pertinent hx Infectious disease: No pertinent hx Renal/: No pertinent hx Endocrine: Diabetes Past Surgical History Past Surgical History: No pertinent history Family History Family History: Diabetes, Heart Disease, High Cholestrol, Hypertension Social History Quit ALCOHOL: none Drugs: None Lives: with Family Current Problem List Problem List Problems Medical Problems: (1) Chest pain Status: Acute (2) Diabetes mellitus, new onset Status: Acute (3) Dyspnea Status: Acute Current Medications Current Medications Current Medications Albuterol/ Ipratropium (Duoneb) 9 ml 1X ONCE NEB Last administered on 04/07/21at 09:57; Start 04/07/21 at 09:45; Stop 04/07/21 at 09:46; Status DC Dexamethasone (Decadron) 10 mg 1X ONCE PO Last administered on 04/07/21at 09: 46; Start 04/07/21 at 10:00; Stop 04/07/21 at 10:01; Status DC Iohexol (Omnipaque 350 Mg/ml) 100 ml 1X ONCE IV Last administered on 04/07/21at 12:37; Start 04/07/21 at 13:00; Stop 04/07/21 at 13:01; Status DC Info (CONTRAST GIVEN -- Rx MONITORING) 1 each PRN DAILY PRN MC SEE COMMENTS; Start 04/07/21 at 12:30; Stop 04/09/21 at 12:29 Insulin Human Regular (HumuLIN R VIAL) 10 unit 1X ONCE IV Last administered on 04/07/21at 15:40; Start 04/07/21 at 15:15; Stop 04/07/21 at 15:16; Status DC Insulin Glargine (Lantus Syringe) 30 unit QHS SQ ; Start 04/07/21 at 21:00 Insulin Human Lispro (HumaLOG) 10 units TIDWMEALS SQ Last administered on 04/07/21at 17:10; Start 04/07/21 at 17:00 Dextrose (Dextrose 50%-Water Syringe) 12.5 gm PRN Q15MIN PRN IV SEE COMMENTS; Start 04/07/21 at 15:45 Dextrose (Iv Dextrose 5%) 250 ml PRN Q15MIN PRN IV SEE COMMENTS; Start 04/07/21 at 15:45 Ondansetron HCl (Zofran) 4 mg PRN Q6HRS PRN IVP NAUSEA/VOMITING; Start 04/07/21 at 16:00 Al Hydroxide/Mg Hydroxide (Mylanta Plus Xs) 30 ml PRN Q3HRS PRN PO HEARTBURN / GAS; Start 04/07/21 at 16:00 Calcium Carbonate/ Glycine (Tums) 500 mg PRN Q3HRS PRN PO UPSET STOMACH; Start 04/07/21 at 16:00 Zolpidem Tartrate (Ambien) 5 mg PRN QHS PRN PO INSOMNIA, MAY REPEAT IN 1HR; Start 04/07/21 at 16:00 Acetaminophen/ Hydrocodone Bitart (Lortab 5/325) 1 tab PRN Q4HRS PRN PO MILD PAIN 1-3; Start 04/07/21 at 16:00 Acetaminophen (Tylenol) 650 mg PRN Q6HRS PRN PO Headaches, Temp > 101.5F; Start 04/07/21 at 16:00 Magnesium Hydroxide (Milk Of Magnesia) 2,400 mg PRN Q12HR PRN PO CONSTIPATION; Start 04/07/21 at 16:00 Bisacodyl (Dulcolax Supp) 10 mg PRN DAILY PRN NE CONSTIPATION; Start 04/07/21 at 16:00 Enoxaparin Sodium (Lovenox 60mg Syringe) 60 mg Q12HR SQ ; Start 04/07/21 at 21:00 Morphine Sulfate (Morphine Sulfate) 4 mg PRN Q2HR PRN IV PAIN; Start 04/07/21 at 16:00 Nitroglycerin (Nitrostat) 0.4 mg PRN Q5MIN PRN SL CHEST PAIN; Start 04/07/21 at 16:00 Active Scripts Active Admelog (Insulin Lispro) 100 Unit/1 Ml Vial 0 Units SQ TIDWMEALS 30 Days Prednisone 20 Mg Tablet 60 Mg PO DAILY 7 Days Culturelle (Lactobacillus Rhamnosus Gg) 1 Each Cap.sprink 1 Cap PO BID 30 Days Combivent Respimat Inhal (Ipratropium/Albuterol Sulfate) 4 Gm Aer.w.adap 1 Puff INH Q4HRS W/A 30 Days Doxycycline Hyclate 100 Mg Tablet 100 Mg PO BID 10 Days Potassium 25 Meq Tablet Eff (Potassium Bicarbonate/Cit Ac) 25 Meq Tablet.eff 25 Meq PO DAILY 20 Days Lisinopril 2.5 Mg Tablet 2.5 Mg PO DAILY 30 Days Furosemide 40 Mg Tablet 40 Mg PO DAILY 30 Days Carvedilol (Carvedilol) 6.25 Mg Tablet 6.25 Mg PO BIDWMEALS 30 Days Benzonatate 100 Mg Capsule 100 Mg PO [id number] Aspirin Ec (Aspirin) 81 Mg Tablet. 81 Mg PO DAILYWBKFT Reported [quvar inhaler] Proair Hfa Inhaler (Albuterol Sulfate) 8.5 Gm Hfa.aer.ad 2 Puff IH PRN Q4-6HRS PRN Allergies Allergies: Coded Allergies: No Known Drug Allergies (Unverified , 07/29/15) ROS General: YES: Fatigue Respiratory: YES: Shortness of breath, SOB with excertion Cardiovascular: yes Other (Mild chest pressure) Physical Exam General: mild distress HEENT: Atraumatic Lungs: Other (Mildly decreased breath sounds) Heart: Regular rate Abdomen: Normal bowel sounds Vitals VITALS Vital Signs Date Time Temp Pulse Resp B/P (MAP) Pulse Ox O2 Delivery O2 Flow Rate FiO2 04/07/21 15:00 Room Air 04/07/21 14:10 97.5 76 18 145/93 (110) 94 97.5 Labs Labs Laboratory Tests Test 04/07/21 09:50 04/07/21 16:28 White Blood Count 8.8 x10^3/uL (4.0-11.0) Red Blood Count 4.47 x10^6/uL (3.50-5.40) Hemoglobin 13.7 g/dL (12.0-15.5) Hematocrit 40.2 % (36.0-47.0) Mean Corpuscular Volume 90 fL (79-100) Mean Corpuscular Hemoglobin 31 pg (25-35) Mean Corpuscular Hemoglobin Concent 34 g/dL (31-37) Red Cell Distribution Width 14.1 % (11.5-14.5) Platelet Count 202 x10^3/uL (140-400) Neutrophils (%) (Auto) 77 % (31-73) Lymphocytes (%) (Auto) 14 % (24-48) Monocytes (%) (Auto) 7 % (0-9) Eosinophils (%) (Auto) 1 % (0-3) Basophils (%) (Auto) 1 % (0-3) Neutrophils # (Auto) 6.7 x10^3/uL (1.8-7.7) Lymphocytes # (Auto) 1.3 x10^3/uL (1.0-4.8) Monocytes # (Auto) 0.6 x10^3/uL (0.0-1.1) Eosinophils # (Auto) 0.1 x10^3/uL (0.0-0.7) Basophils # (Auto) 0.0 x10^3/uL (0.0-0.2) Sodium Level 134 mmol/L (136-145) Potassium Level 3.4 mmol/L (3.5-5.1) Chloride Level 98 mmol/L (98-107) Carbon Dioxide Level 31 mmol/L (21-32) Anion Gap 5 (6-14) Blood Urea Nitrogen 9 mg/dL (7-20) Creatinine 1.0 mg/dL (0.6-1.0) Estimated GFR (Cockcroft-Gault) 59.4 BUN/Creatinine Ratio 9 (6-20) Glucose Level 423 mg/dL (70-99) Calcium Level 8.9 mg/dL (8.5-10.1) Total Bilirubin 0.8 mg/dL (0.2-1.0) Aspartate Amino Transf (AST/SGOT) 15 U/L (15-37) Alanine Aminotransferase (ALT/SGPT) 47 U/L (14-59) Alkaline Phosphatase 120 U/L (46-116) Troponin I Quantitative 0.029 ng/mL (0.000-0.055) DC-Pzw-K-Type Natriuretic Peptide 881 pg/mL (0-124) Total Protein 7.8 g/dL (6.4-8.2) Albumin 3.4 g/dL (3.4-5.0) Albumin/Globulin Ratio 0.8 (1.0-1.7) Glucose (Fingerstick) 311 mg/dL (70-99) Laboratory Tests Test 04/07/21 09:50 04/07/21 16:28 White Blood Count 8.8 x10^3/uL (4.0-11.0) Red Blood Count 4.47 x10^6/uL (3.50-5.40) Hemoglobin 13.7 g/dL (12.0-15.5) Hematocrit 40.2 % (36.0-47.0) Mean Corpuscular Volume 90 fL (79-100) Mean Corpuscular Hemoglobin 31 pg (25-35) Mean Corpuscular Hemoglobin Concent 34 g/dL (31-37) Red Cell Distribution Width 14.1 % (11.5-14.5) Platelet Count 202 x10^3/uL (140-400) Neutrophils (%) (Auto) 77 % (31-73) Lymphocytes (%) (Auto) 14 % (24-48) Monocytes (%) (Auto) 7 % (0-9) Eosinophils (%) (Auto) 1 % (0-3) Basophils (%) (Auto) 1 % (0-3) Neutrophils # (Auto) 6.7 x10^3/uL (1.8-7.7) Lymphocytes # (Auto) 1.3 x10^3/uL (1.0-4.8) Monocytes # (Auto) 0.6 x10^3/uL (0.0-1.1) Eosinophils # (Auto) 0.1 x10^3/uL (0.0-0.7) Basophils # (Auto) 0.0 x10^3/uL (0.0-0.2) Sodium Level 134 mmol/L (136-145) Potassium Level 3.4 mmol/L (3.5-5.1) Chloride Level 98 mmol/L (98-107) Carbon Dioxide Level 31 mmol/L (21-32) Anion Gap 5 (6-14) Blood Urea Nitrogen 9 mg/dL (7-20) Creatinine 1.0 mg/dL (0.6-1.0) Estimated GFR (Cockcroft-Gault) 59.4 BUN/Creatinine Ratio 9 (6-20) Glucose Level 423 mg/dL (70-99) Calcium Level 8.9 mg/dL (8.5-10.1) Total Bilirubin 0.8 mg/dL (0.2-1.0) Aspartate Amino Transf (AST/SGOT) 15 U/L (15-37) Alanine Aminotransferase (ALT/SGPT) 47 U/L (14-59) Alkaline Phosphatase 120 U/L (46-116) Troponin I Quantitative 0.029 ng/mL (0.000-0.055) KW-Ozr-A-Type Natriuretic Peptide 881 pg/mL (0-124) Total Protein 7.8 g/dL (6.4-8.2) Albumin 3.4 g/dL (3.4-5.0) Albumin/Globulin Ratio 0.8 (1.0-1.7) Glucose (Fingerstick) 311 mg/dL (70-99) Images Images CTA and chest x-ray as above. Assessment/Plan Assessment/Plan 1. Acute on chronic systolic heart failure. Patient has a history of severely decreased LV function but only mild coronary artery disease. Initial troponin was not significantly elevated at 0.029 the patient has no acute ischemic EKG changes. At this time we will continue present treatments. We will rule out for myocardial infarction. The patient was strongly encouraged to continue follow-up at in the heart failure clinic. 2. Acute exacerbation of COPD. Significantly improved on pulmonary treatments. Continue present treatment. 3. Hypertension. Blood pressure has improved. Continuing present medications and monitoring. 4. Diabetes mellitus. Glucose reportedly at 423 on admission. As per the primary service. MILEY MOTTA MD April 07, 2021 17:46
[2021-04-07 19:40] VITALS: BP 156/69
[2021-04-07] MEDS: ZOLPIDEM 5 MG TABLET. PO PRN (20:52)
[2021-04-07] MEDS ORDERED: INSULIN GLARGINE SYRINGE. SQ SCH (21:00)
[2021-04-07] MEDS ORDERED: INSULIN LISPRO 300 UNITS/3 ML VIAL. SQ ONE (21:45)
--- NOTE | 2021-04-07 21:56 | NUR ---
notified of elevated second troponin by returning page at this time. Physician states continue plan of care.
[2021-04-07 23:40] VITALS: BP 139/77
[2021-04-08 03:25] VITALS: BP 131/68
[2021-04-08 04:10] LABS: HEMOGLOBIN A1C 11.6 % (4.8-5.6)
[2021-04-08 07:00] VITALS: BP 121/78
[2021-04-08] MEDS: CARVEDILOL 6.25 MG TABLET. PO SCH ×2 (08:28→17:41)
[2021-04-08] MEDS: FUROSEMIDE 40 MG TABLET. PO SCH (08:28)
[2021-04-08] MEDS: LISINOPRIL 5 MG TABLET. PO SCH (08:28)
[2021-04-08] MEDS: ASPIRIN ENTERIC COATED 81 MG TABLET.DR. PO SCH (08:29)
[2021-04-08] MEDS: INSULIN LISPRO 300 UNITS/3 ML VIAL. SQ SCH ×5 (08:34→17:47)
[2021-04-08 08:58] LABS: CALCIUM 9.4 mg/dL (8.5-10.1); CREATININE 0.9 mg/dL (0.6-1.0); GFR 67.1; POTASSIUM 4.2 mmol/L (3.5-5.1)
[2021-04-08] MEDS: INSULIN GLARGINE SYRINGE. SQ SCH ×2 (09:00→21:37)
[2021-04-08 11:00] VITALS: BP 126/75
[2021-04-08] MEDS ORDERED: DEXTROSE 50% 25 GM / 50ML DISP.SYRIN. IV PRN (12:00)
--- NOTE | 2021-04-08 12:04 | PDOC ---
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 Sliding scale insulin, lantus, add tradjenta, outpatient should be on jardiance given severity of CHF HTN - cont home medications Morbid obesity - needs Plan: Morphine, nitroglycerin as needed Will obtain limited echo Patient denies any prior diagnosis of DM2. Provide basal/prandial insulin; Resume home medication FEN - Cardiac diet PPX - Lovenox FULL CODE Dispo - inpatient for above Advance Care Planning: Total time spent [id number] with patient 16 minutes in discussion with goals of care, comfort care, end-of-life care, pain management, code status; patient names her boyfriend (Kylah Saleem) as surrogate decision-maker. History of Present Illness History of Present Illness Ms Laguerre is a 45-year-old female with past medical history CHF, COPD, HTN, who presents to the ED with complaints of shortness of breath for the past 2 days. She reports associated chest heaviness and wheezing. She treated herself with her home albuterol and breathing treatment without significant improvement. Upon arrival in the ED she received Decadron 10 mg IV and duo nebulizer with improvement in her shortness of breath, wheezing, and chest heaviness. Upon chart review, she had a left heart cath and 05/03/2016 that showed severe LV systolic dysfunction, EF 15-20%; no significant obstructive coronary artery disease. She was recommended aggressive medical therapy and reassessment of EF in 3 months. A repeat repeat echocardiogram on 11/13/2016 showed EF 15-20% with severe global hypokinesis. Initial lab work in the ED showed troponin 0.029, BNP 881, CBG 423, K 3.4, Na 134. Due to concerns for PE, CTA of chest was obtained that showed no evidence of PE. Of note, patient is somewhat of a poor historian in regards to her medication complaints. In review of her current medications she has multiple contraindication medications including BECKY-I and ARB's together. She states that she was scheduled for an AICD to be placed at , but this was postponed due to COVID-19. 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 Due to her significant cardiac risk factors admitted patient for further monitoring. Still short of breath no further chest pain. Troponin is climbing up greater than 1. Glucose over 400. Note she has no prior doses diagnosed diabetes. Vitals/I&O Vitals/I&O: Vital Signs Date Time Temp Pulse Resp B/P (MAP) Pulse Ox O2 Delivery O2 Flow Rate FiO2 04/08/21 08:28 66 121/78 04/08/21 07:40 Room Air 04/08/21 07:00 97.6 16 89 97.6 I & O 04/07/21 04/07/21 04/08/21 15:00 23:00 07:00 Intake Total 720 ml 200 ml Output Total 250 ml 500 ml Balance 470 ml -300 ml Physical Exam General: mild distress Heart: Regular rate Lungs: Wheezing Abdomen: Normal bowel sounds Labs Labs: Laboratory Tests Test 04/07/21 16:28 04/07/21 19:45 04/07/21 20:51 04/08/21 08:05 Glucose (Fingerstick) 311 mg/dL (70-99) 466 mg/dL (70-99) Troponin I Quantitative 1.095 ng/mL (0.000-0.055) 1.426 ng/mL (0.000-0.055) Sodium Level 134 mmol/L (136-145) Potassium Level 4.2 mmol/L (3.5-5.1) Chloride Level 95 mmol/L (98-107) Carbon Dioxide Level 30 mmol/L (21-32) Anion Gap 9 (6-14) Blood Urea Nitrogen 16 mg/dL (7-20) Creatinine 0.9 mg/dL (0.6-1.0) Estimated GFR (Cockcroft-Gault) 67.1 Glucose Level 296 mg/dL (70-99) Calcium Level 9.4 mg/dL (8.5-10.1) Test 04/08/21 08:25 04/08/21 11:44 Glucose (Fingerstick) 306 mg/dL (70-99) 414 mg/dL (70-99) Assessment and Plan Assessmemt and Plan Problems Medical Problems: (1) Chest pain Status: Acute (2) Diabetes mellitus, new onset Status: Acute (3) Dyspnea Status: Acute Comment Review of Relevant I have reviewed the following items javed (where applicable) has been applied. Medications: Current Medications Medications (Trade) Dose Ordered Sig/Hernandez Route PRN Reason Start Time Stop Time Status Last Admin Dose Admin Iohexol (Omnipaque 350 Mg/ml) 100 ml 1X ONCE IV 04/07/21 13:00 04/07/21 13:01 DC 04/07/21 12:37 Insulin Human Regular (HumuLIN R VIAL) 10 unit 1X ONCE IV 04/07/21 15:15 04/07/21 15:16 DC 04/07/21 15:40 Insulin Glargine (Lantus Syringe) 30 unit QHS SQ 04/07/21 21:00 04/08/21 06:32 DC 04/07/21 20:56 Insulin Human Lispro (HumaLOG) 10 units TIDWMEALS SQ 04/07/21 17:00 04/08/21 06:33 DC 04/07/21 17:10 Zolpidem Tartrate (Ambien) 5 mg PRN QHS PRN PO INSOMNIA, MAY REPEAT IN 1HR 04/07/21 16:00 04/07/21 20:52 Enoxaparin Sodium (Lovenox 60mg Syringe) 60 mg Q12HR SQ 04/07/21 21:00 04/08/21 10:01 DC 04/08/21 08:29 Aspirin (Ecotrin) 81 mg DAILYWBKFT PO 04/08/21 08:00 04/08/21 08:29 Carvedilol (Coreg) 6.25 mg BIDWMEALS PO 04/08/21 08:00 04/08/21 08:28 Furosemide (Lasix) 40 mg DAILY PO 04/08/21 09:00 04/08/21 08:28 Lisinopril (Prinivil) 5 mg DAILY PO 04/08/21 09:00 04/08/21 08:28 Insulin Human Lispro (HumaLOG) 12 units 1X ONCE SQ 04/07/21 21:45 04/07/21 21:46 DC 04/07/21 22:03 Insulin Glargine (Lantus Syringe) 20 unit BID SQ 04/08/21 09:00 04/08/21 09:00 Insulin Human Lispro (HumaLOG) 12 units TIDWMEALS SQ 04/08/21 08:00 04/08/21 08:34 Justifications for Admission Other Justification Shortness of breath, chest pressure GATITO KENT MD April 08, 2021 12:04
[2021-04-08] MEDS: LINAGLIPTIN 5 MG TABLET PO SCH (12:18)
[2021-04-08] MEDS ORDERED: INSULIN LISPRO 300 UNITS/3 ML VIAL. SQ SCH (12:30)
--- NOTE | 2021-04-08 13:16 | PDOC ---
PROGRESS NOTES Date of Service DATE: 04/08/21 TIME: 13:14 Subjective Subjective Patient seen and examined Objective Objective Vital Signs Date Time Temp Pulse Resp B/P (MAP) Pulse Ox O2 Delivery O2 Flow Rate FiO2 04/08/21 11:00 97.9 72 16 126/75 (92) 93 Room Air 97.9 Intake and Output 04/08/21 07:00 Intake Total 920 ml Output Total 750 ml Balance 170 ml Intake Oral 920 ml Output Urine Total 750 ml Physical Exam Abdomen: Normal bowel sounds Heart: Regular rate General: No acute distress Lungs: Other (Minimally decreased breath sounds) Assessment Assessment Problems Medical Problems: (1) Chest pain Status: Acute (2) Diabetes mellitus, new onset Status: Acute (3) Dyspnea Status: Acute Assessment/Plan 1. Acute on chronic systolic heart failure. Patient has a history of severely decreased LV function but only mild coronary artery disease. The patient's troponin has mildly increased to 1.4. However she looks and feels quite well with decreasing shortness of breath and no chest pain. At the present time we will continue on present medical treatment and increase her activities. 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 2. Acute exacerbation of COPD. Significantly improved on pulmonary treatments. Continue present treatment. 3. Hypertension. Blood pressure has improved. Continuing present medications and monitoring. 4. Diabetes mellitus. Glucose reportedly at 423 on admission. As per the primary service. Comment Review of Relevant I have reviewed the following items javed (where applicable) has been applied. Labs Laboratory Tests Test 04/07/21 09:50 04/07/21 16:28 04/07/21 19:45 04/07/21 20:51 White Blood Count 8.8 x10^3/uL (4.0-11.0) Red Blood Count 4.47 x10^6/uL (3.50-5.40) Hemoglobin 13.7 g/dL (12.0-15.5) Hematocrit 40.2 % (36.0-47.0) Mean Corpuscular Volume 90 fL (79-100) Mean Corpuscular Hemoglobin 31 pg (25-35) Mean Corpuscular Hemoglobin Concent 34 g/dL (31-37) Red Cell Distribution Width 14.1 % (11.5-14.5) Platelet Count 202 x10^3/uL (140-400) Neutrophils (%) (Auto) 77 % (31-73) Lymphocytes (%) (Auto) 14 % (24-48) Monocytes (%) (Auto) 7 % (0-9) Eosinophils (%) (Auto) 1 % (0-3) Basophils (%) (Auto) 1 % (0-3) Neutrophils # (Auto) 6.7 x10^3/uL (1.8-7.7) Lymphocytes # (Auto) 1.3 x10^3/uL (1.0-4.8) Monocytes # (Auto) 0.6 x10^3/uL (0.0-1.1) Eosinophils # (Auto) 0.1 x10^3/uL (0.0-0.7) Basophils # (Auto) 0.0 x10^3/uL (0.0-0.2) Sodium Level 134 mmol/L (136-145) Potassium Level 3.4 mmol/L (3.5-5.1) Chloride Level 98 mmol/L (98-107) Carbon Dioxide Level 31 mmol/L (21-32) Anion Gap 5 (6-14) Blood Urea Nitrogen 9 mg/dL (7-20) Creatinine 1.0 mg/dL (0.6-1.0) Estimated GFR (Cockcroft-Gault) 59.4 BUN/Creatinine Ratio 9 (6-20) Glucose Level 423 mg/dL (70-99) Hemoglobin A1c 11.6 % (4.8-5.6) Calcium Level 8.9 mg/dL (8.5-10.1) Total Bilirubin 0.8 mg/dL (0.2-1.0) Aspartate Amino Transf (AST/SGOT) 15 U/L (15-37) Alanine Aminotransferase (ALT/SGPT) 47 U/L (14-59) Alkaline Phosphatase 120 U/L (46-116) Troponin I Quantitative 0.029 ng/mL (0.000-0.055) 1.095 ng/mL (0.000-0.055) AB-Phn-S-Type Natriuretic Peptide 881 pg/mL (0-124) Total Protein 7.8 g/dL (6.4-8.2) Albumin 3.4 g/dL (3.4-5.0) Albumin/Globulin Ratio 0.8 (1.0-1.7) Glucose (Fingerstick) 311 mg/dL (70-99) 466 mg/dL (70-99) Test 04/08/21 08:05 04/08/21 08:25 04/08/21 11:44 Sodium Level 134 mmol/L (136-145) Potassium Level 4.2 mmol/L (3.5-5.1) Chloride Level 95 mmol/L (98-107) Carbon Dioxide Level 30 mmol/L (21-32) Anion Gap 9 (6-14) Blood Urea Nitrogen 16 mg/dL (7-20) Creatinine 0.9 mg/dL (0.6-1.0) Estimated GFR (Cockcroft-Gault) 67.1 Glucose Level 296 mg/dL (70-99) Calcium Level 9.4 mg/dL (8.5-10.1) Troponin I Quantitative 1.426 ng/mL (0.000-0.055) Glucose (Fingerstick) 306 mg/dL (70-99) 414 mg/dL (70-99) Laboratory Tests Test 04/07/21 16:28 04/07/21 19:45 04/07/21 20:51 04/08/21 08:05 Glucose (Fingerstick) 311 mg/dL (70-99) 466 mg/dL (70-99) Troponin I Quantitative 1.095 ng/mL (0.000-0.055) 1.426 ng/mL (0.000-0.055) Sodium Level 134 mmol/L (136-145) Potassium Level 4.2 mmol/L (3.5-5.1) Chloride Level 95 mmol/L (98-107) Carbon Dioxide Level 30 mmol/L (21-32) Anion Gap 9 (6-14) Blood Urea Nitrogen 16 mg/dL (7-20) Creatinine 0.9 mg/dL (0.6-1.0) Estimated GFR (Cockcroft-Gault) 67.1 Glucose Level 296 mg/dL (70-99) Calcium Level 9.4 mg/dL (8.5-10.1) Test 04/08/21 08:25 04/08/21 11:44 Glucose (Fingerstick) 306 mg/dL (70-99) 414 mg/dL (70-99) Medications Current Medications Albuterol/ Ipratropium (Duoneb) 9 ml 1X ONCE NEB Last administered on 04/07/21at 09:57; Start 04/07/21 at 09:45; Stop 04/07/21 at 09:46; Status DC Dexamethasone (Decadron) 10 mg 1X ONCE PO Last administered on 04/07/21at 09:46; Start 04/07/21 at 10:00; Stop 04/07/21 at 10:01; Status DC Iohexol (Omnipaque 350 Mg/ml) 100 ml 1X ONCE IV Last administered on 04/07/21at 12:37; Start 04/07/21 at 13:00; Stop 04/07/21 at 13:01; Status DC Info (CONTRAST GIVEN -- Rx MONITORING) 1 each PRN DAILY PRN MC SEE COMMENTS; Start 04/07/21 at 12:30; Stop 04/09/21 at 12:29 Insulin Human Regular (HumuLIN R VIAL) 10 unit 1X ONCE IV Last administered on 04/07/21at 15:40; Start 04/07/21 at 15:15; Stop 04/07/21 at 15:16; Status DC Insulin Glargine (Lantus Syringe) 30 unit QHS SQ Last administered on 04/07/21at 20:56; Start 04/07/21 at 21:00; Stop 04/08/21 at 06:32; Status DC Insulin Human Lispro (HumaLOG) 10 units TIDWMEALS SQ Last administered on 04/07/21at 17:10; Start 04/07/21 at 17:00; Stop 04/08/21 at 06:33; Status DC Dextrose (Dextrose 50%-Water Syringe) 12.5 gm PRN Q15MIN PRN IV SEE COMMENTS; Start 04/07/21 at 15:45; Stop 04/08/21 at 11:58; Status DC Dextrose (Iv Dextrose 5%) 250 ml PRN Q15MIN PRN IV SEE COMMENTS; Start 04/07/21 at 15:45 Ondansetron HCl (Zofran) 4 mg PRN Q6HRS PRN IVP NAUSEA/VOMITING; Start 04/07/21 at 16:00 Al Hydroxide/Mg Hydroxide (Mylanta Plus Xs) 30 ml PRN Q3HRS PRN PO HEARTBURN / GAS; Start 04/07/21 at 16:00 Calcium Carbonate/ Glycine (Tums) 500 mg PRN Q3HRS PRN PO UPSET STOMACH; Start 04/07/21 at 16:00 Zolpidem Tartrate (Ambien) 5 mg PRN QHS PRN PO INSOMNIA, MAY REPEAT IN 1HR Last administered on 04/07/21at 20:52; Start 04/07/21 at 16:00 Acetaminophen/ Hydrocodone Bitart (Lortab 5/325) 1 tab PRN Q4HRS PRN PO MILD PAIN 1-3; Start 04/07/21 at 16:00 Acetaminophen (Tylenol) 650 mg PRN Q6HRS PRN PO Headaches, Temp > 101.5F; Start 04/07/21 at 16:00 Magnesium Hydroxide (Milk Of Magnesia) 2,400 mg PRN Q12HR PRN PO CONSTIPATION; Start 04/07/21 at 16:00 Bisacodyl (Dulcolax Supp) 10 mg PRN DAILY PRN LA CONSTIPATION; Start 04/07/21 at 16:00 Enoxaparin Sodium (Lovenox 60mg Syringe) 60 mg Q12HR SQ Last administered on 04/08/21at 08:29; Start 04/07/21 at 21:00; Stop 04/08/21 at 10:01; Status DC Morphine Sulfate (Morphine Sulfate) 4 mg PRN Q2HR PRN IV PAIN; Start 04/07/21 at 16:00 Nitroglycerin (Nitrostat) 0.4 mg PRN Q5MIN PRN SL CHEST PAIN; Start 04/07/21 at 16:00 Aspirin (Ecotrin) 81 mg DAILYWBKFT PO Last administered on 04/08/21at 08:29; Start 04/08/21 at 08:00 Carvedilol (Coreg) 6.25 mg BIDWMEALS PO Last administered on 04/08/21at 08:28; Start 04/08/21 at 08:00 Furosemide (Lasix) 40 mg DAILY PO Last administered on 04/08/21at 08:28; Start 04/08/21 at 09:00 Lisinopril (Prinivil) 5 mg DAILY PO Last administered on 04/08/21at 08:28; Start 04/08/21 at 09:00 Insulin Human Lispro (HumaLOG) 12 units 1X ONCE SQ Last administered on 04/07/21at 22:03; Start 04/07/21 at 21:45; Stop 04/07/21 at 21:46; Status DC Insulin Glargine (Lantus Syringe) 20 unit BID SQ Last administered on 04/08/21at 09:00; Start 04/08/21 at 09:00 Insulin Human Lispro (HumaLOG) 12 units TIDWMEALS SQ Last administered on 04/08/21at 08:34; Start 04/08/21 at 08:00 Enoxaparin Sodium (Lovenox 40mg Syringe) 40 mg Q12HR SQ ; Start 04/08/21 at 21:00 Insulin Human Lispro (HumaLOG) 0-9 UNITS TIDWMEALS SQ ; Start 04/08/21 at 12:00 Dextrose (Dextrose 50%-Water Syringe) 12.5 gm PRN Q15MIN PRN IV SEE COMMENTS; Start 04/08/21 at 12:00 Insulin Human Lispro (HumaLOG) 25 units 1X SQ Last administered on 04/08/21at 12:22; Start 04/08/21 at 12:30 Linagliptin (Tradjenta) 5 mg DAILY PO Last administered on 04/08/21at 12:18; Start 04/08/21 at 13:00 Active Scripts Active Admelog (Insulin Lispro) 100 Unit/1 Ml Vial 0 Units SQ TIDWMEALS 30 Days Prednisone 20 Mg Tablet 60 Mg PO DAILY 7 Days Culturelle (Lactobacillus Rhamnosus Gg) 1 Each Cap.sprink 1 Cap PO BID 30 Days Combivent Respimat Inhal (Ipratropium/Albuterol Sulfate) 4 Gm Aer.w.adap 1 Puff INH Q4HRS W/A 30 Days Doxycycline Hyclate 100 Mg Tablet 100 Mg PO BID 10 Days Potassium 25 Meq Tablet Eff (Potassium Bicarbonate/Cit Ac) 25 Meq Tablet.eff 25 Meq PO DAILY 20 Days Lisinopril 2.5 Mg Tablet 2.5 Mg PO DAILY 30 Days Furosemide 40 Mg Tablet 40 Mg PO DAILY 30 Days Carvedilol (Carvedilol) 6.25 Mg Tablet 6.25 Mg PO BIDWMEALS 30 Days Benzonatate 100 Mg Capsule 100 Mg PO [id number] Aspirin Ec (Aspirin) 81 Mg Tablet. 81 Mg PO DAILYWBKFT Reported [quvar inhaler] Proair Hfa Inhaler (Albuterol Sulfate) 8.5 Gm Hfa.aer.ad 2 Puff IH PRN Q4-6HRS PRN Vitals/I & O Vital Sign - Last 24 Hours 04/07/21 04/07/21 04/07/21 04/07/21 14:10 15:00 19:40 20:00 Temp 97.5 99.3 97.5 99.3 Pulse 76 86 Resp 18 18 B/P (MAP) 145/93 (110) 156/69 (98) Pulse Ox 94 92 O2 Delivery Room Air Room Air Room Air Room Air 04/07/21 04/08/21 04/08/21 04/08/21 23:40 03:25 07:00 07:40 Temp 97.4 97.6 97.6 97.4 97.6 97.6 Pulse 83 65 66 Resp 20 18 16 B/P (MAP) 139/77 (97) 131/68 (89) 121/78 (92) Pulse Ox 92 90 89 O2 Delivery Room Air Room Air Room Air Room Air 04/08/21 04/08/21 04/08/21 08:28 08:28 11:00 Temp 97.9 97.9 Pulse 66 66 72 Resp 16 B/P (MAP) 121/78 121/78 126/75 (92) Pulse Ox 93 O2 Delivery Room Air Intake and Output 04/07/21 04/07/21 04/08/21 15:00 23:00 07:00 Intake Total 720 ml 200 ml Output Total 250 ml 500 ml Balance 470 ml -300 ml Justifications for Admission Other Justification Shortness of breath, chest pressure MILEY MOTTA MD April 08, 2021 13:16
[2021-04-08 15:00] VITALS: BP 96/52
[2021-04-08 19:20] VITALS: BP 108/75
[2021-04-08] MEDS: ENOXAPARIN 40 MG/0.4 ML SYRINGE. SQ SCH (21:36)
[2021-04-08] MEDS: HYDROcodone/APAP 5/325MG 1 TAB TABLET PO PRN (21:38)
[2021-04-08] MEDS: ZOLPIDEM 5 MG TABLET. PO PRN (21:38)
[2021-04-08 23:45] VITALS: BP 131/70
[2021-04-09 03:15] VITALS: BP 134/69
[2021-04-09 07:00] VITALS: BP 109/62
[2021-04-09 07:21] LABS: CALCIUM 9.1 mg/dL (8.5-10.1); CREATININE 1.1 mg/dL (0.6-1.0); GFR 53.2; POTASSIUM 3.1 mmol/L (3.5-5.1)
[2021-04-09] MEDS ORDERED: POTASSIUM CHLORIDE 20 MEQ TABLET.ER. PO ONE (08:00)
[2021-04-09] MEDS: CARVEDILOL 6.25 MG TABLET. PO SCH ×2 (08:52→17:31)
[2021-04-09] MEDS: LISINOPRIL 5 MG TABLET. PO SCH (08:53)
[2021-04-09] MEDS: FUROSEMIDE 40 MG TABLET. PO SCH (08:53)
[2021-04-09] MEDS: LINAGLIPTIN 5 MG TABLET PO SCH (08:53)
[2021-04-09] MEDS: ASPIRIN ENTERIC COATED 81 MG TABLET.DR. PO SCH (08:53)
[2021-04-09] MEDS: ENOXAPARIN 40 MG/0.4 ML SYRINGE. SQ SCH ×2 (08:54→21:19)
[2021-04-09] MEDS: INSULIN LISPRO 300 UNITS/3 ML VIAL. SQ SCH ×6 (08:58→17:34)
[2021-04-09] MEDS: POTASSIUM CHLORIDE 10MEQ 100 ML IV SCH ×2 (09:51→11:15)
[2021-04-09 11:00] VITALS: BP 99/51
--- NOTE | 2021-04-09 11:31 | PDOC ---
[facility] PROGRESS NOTE Date of Service DOS: DATE: 04/09/21 TIME: 11:29 Chief Complaint Chief Complaint A/P: NSTEMI - cardiology consulted, trend troponins Severe systolic CHF - EF 10-15%, seen at [facility] previously was advised to follow- up in regardless of how well she got along with her nurse ob for AICD placement Acute COPD - nebs prn Elevated BNP - due to acute CHF exacerbation DM2 - Hyperglycemia, a1c 11.6 due to newly diagnosed diabetes. Sliding scale insulin, lantus, add tradjenta, outpatient should be on jardiance given severity of CHF HTN - cont home medications Morbid obesity - needs Plan: Morphine, nitroglycerin as needed Will obtain limited echo Patient denies any prior diagnosis of DM2. Provide basal/prandial insulin; Resume home medication FEN - Cardiac diet PPX - Lovenox FULL CODE Dispo - inpatient for above Advance Care Planning: Total time spent [id number] with patient 16 minutes in discussion with goals of care, comfort care, end-of-life care, pain management, code status; patient names her boyfriend (Kylah Saleem) as surrogate decision-maker. History of Present Illness History of Present Illness Ms Laguerre is a 45-year-old female with past medical history CHF, COPD, HTN, who presents to the ED with complaints of shortness of breath for the past 2 days. She reports associated chest heaviness and wheezing. She treated herself with her home albuterol and breathing treatment without significant improvement. Upon arrival in the ED she received Decadron 10 mg IV and duo nebulizer with improvement in her shortness of breath, wheezing, and chest heaviness. Upon chart review, she had a left heart cath and 05/03/2016 that showed severe LV systolic dysfunction, EF 15-20%; no significant obstructive coronary artery disease. She was recommended aggressive medical therapy and reassessment of EF in 3 months. A repeat repeat echocardiogram on 11/13/2016 showed EF 15-20% with severe global hypokinesis. Initial lab work in the ED showed troponin 0.029, BNP 881, CBG 423, K 3.4, Na 134. Due to concerns for PE, CTA of chest was obtained that showed no evidence of PE. Of note, patient is somewhat of a poor historian in regards to her medication complaints. In review of her current medications she has multiple contraindication medications including BECKY-I and ARB's together. She states that she was scheduled for an AICD to be placed at , but this was postponed due to COVID-19. She has not followed up at because she states she did not like her nurse ob there. Due to her significant cardiac risk factors admitted patient for further monitoring. 04/08: Still short of breath no further chest pain. Troponin is climbing up greater than 1. Glucose over 400. Note she has no prior doses diagnosed diabetes. A1c > 11 Shortness of breath improved a little no chest pain. Troponin down below 1. Glucose less than 200 now. Potassium 3.1 today. Vitals/I&O Vitals/I&O: Vital Signs Date Time Temp Pulse Resp B/P (MAP) Pulse Ox O2 Delivery O2 Flow Rate FiO2 04/09/21 08:53 70 134/69 04/09/21 07:40 Room Air 04/09/21 07:00 98.0 16 93 98.0 I & O 0 04/08/21 04/08/21 04/09/21 15:00 23:00 07:00 Intake Total 400 ml 180 ml 400 ml Output Total 1000 ml 100 ml 100 ml Balance -600 ml 80 ml 300 ml Physical Exam General: No acute distress Heart: Regular rate Lungs: Wheezing Abdomen: Normal bowel sounds Labs Labs: Laboratory Tests Test 04/08/21 11:44 04/08/21 14:10 04/08/21 17:36 04/08/21 21:05 Glucose (Fingerstick) 414 mg/dL (70-99) 201 mg/dL (70-99) 244 mg/dL (70-99) Troponin I Quantitative 0.980 ng/mL (0.000-0.055) Test 04/09/21 06:25 04/09/21 07:55 Sodium Level 138 mmol/L (136-145) Potassium Level 3.1 mmol/L (3.5-5.1) Chloride Level 98 mmol/L (98-107) Carbon Dioxide Level 29 mmol/L (21-32) Anion Gap 11 (6-14) Blood Urea Nitrogen 32 mg/dL (7-20) Creatinine 1.1 mg/dL (0.6-1.0) Estimated GFR (Cockcroft-Gault) 53.2 Glucose Level 187 mg/dL (70-99) Calcium Level 9.1 mg/dL (8.5-10.1) Magnesium Level 1.9 mg/dL (1.8-2.4) Glucose (Fingerstick) 176 mg/dL (70-99) Assessment and Plan Assessmemt and Plan Problems Medical Problems: (1) Chest pain Status: Acute (2) Diabetes mellitus, new onset Status: Acute (3) Dyspnea Status: Acute Comment Review of Relevant I have reviewed the following items javed (where applicable) has been applied. Medications: Current Medications Medications (Trade) Dose Ordered Sig/Hernandez Route PRN Reason Start Time Stop Time Status Last Admin Dose Admin Enoxaparin Sodium (Lovenox 40mg Syringe) 40 mg Q12HR SQ 04/08/21 21:00 04/09/21 08:54 Insulin Human Lispro (HumaLOG) 0-9 UNITS TIDWMEALS SQ 04/08/21 12:00 04/09/21 08:58 Insulin Human Lispro (HumaLOG) 25 units 1X SQ 04/08/21 12:30 04/08/21 12:22 Linagliptin (Tradjenta) 5 mg DAILY PO 04/08/21 13:00 04/09/21 08:53 Potassium Chloride (Klor-Con) 40 meq 1X ONCE PO 04/09/21 08:00 04/09/21 08:01 DC 04/09/21 08:53 Potassium Chloride/Water 100 ml @ 100 mls/hr Q1H IV 04/09/21 08:30 04/09/21 10:29 DC 04/09/21 11:15 Justifications for Admission Other Justification Shortness of breath, chest pressure GATITO KENT MD April 09, 2021 11:31
[2021-04-09] MEDS: metFORMIN 500 MG TABLET PO SCH ×2 (12:25→17:31)
--- NOTE | 2021-04-09 13:27 | PDOC ---
PROGRESS NOTES Date of Service DATE: 04/09/21 TIME: 13:25 Subjective Subjective Patient seen and examined Objective Objective Vital Signs Date Time Temp Pulse Resp B/P (MAP) Pulse Ox O2 Delivery O2 Flow Rate FiO2 04/09/21 11:00 97.9 69 16 99/51 (67) 94 Room Air 97.9 Intake and Output 04/09/21 07:00 Intake Total 980 ml Output Total 1200 ml Balance -220 ml Intake Oral 980 ml Output Urine Total 1200 ml # Voids 2 Physical Exam Abdomen: Normal bowel sounds Heart: Regular rate General: No acute distress Lungs: Other (Slightly decreased breath sounds) Assessment Assessment Problems Medical Problems: (1) Chest pain Status: Acute (2) Diabetes mellitus, new onset Status: Acute (3) Dyspnea Status: Acute 1. Acute on chronic systolic heart failure. The patient looks and feels better today. Patient has a history of severely decreased LV function but only mild coronary artery disease. The patient's troponin has mildly increased to 1.4. However she looks and feels well with decreasing shortness of breath and no chest pain. At the present time we will continue on present medical treatment and increase her activities. 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 2. Acute exacerbation of COPD. Significantly improved on pulmonary treatments. Continue present treatment. 3. Hypertension. Blood pressure has improved. Continuing present medications and monitoring. 4. Diabetes mellitus. Glucose reportedly at 423 on admission. As per the primary service. Comment Review of Relevant I have reviewed the following items javed (where applicable) has been applied. Labs Laboratory Tests Test 04/07/21 16:28 04/07/21 19:45 04/07/21 20:51 04/08/21 08:05 Glucose (Fingerstick) 311 mg/dL (70-99) 466 mg/dL (70-99) Troponin I Quantitative 1.095 ng/mL (0.000-0.055) 1.426 ng/mL (0.000-0.055) Sodium Level 134 mmol/L (136-145) Potassium Level 4.2 mmol/L (3.5-5.1) Chloride Level 95 mmol/L (98-107) Carbon Dioxide Level 30 mmol/L (21-32) Anion Gap 9 (6-14) Blood Urea Nitrogen 16 mg/dL (7-20) Creatinine 0.9 mg/dL (0.6-1.0) Estimated GFR (Cockcroft-Gault) 67.1 Glucose Level 296 mg/dL (70-99) Calcium Level 9.4 mg/dL (8.5-10.1) Test 04/08/21 08:25 04/08/21 11:44 04/08/21 14:10 04/08/21 17:36 Glucose (Fingerstick) 306 mg/dL (70-99) 414 mg/dL (70-99) 201 mg/dL (70-99) Troponin I Quantitative 0.980 ng/mL (0.000-0.055) Test 04/08/21 21:05 04/09/21 06:25 04/09/21 07:55 04/09/21 12:09 Glucose (Fingerstick) 244 mg/dL (70-99) 176 mg/dL (70-99) 249 mg/dL (70-99) Sodium Level 138 mmol/L (136-145) Potassium Level 3.1 mmol/L (3.5-5.1) Chloride Level 98 mmol/L (98-107) Carbon Dioxide Level 29 mmol/L (21-32) Anion Gap 11 (6-14) Blood Urea Nitrogen 32 mg/dL (7-20) Creatinine 1.1 mg/dL (0.6-1.0) Estimated GFR (Cockcroft-Gault) 53.2 Glucose Level 187 mg/dL (70-99) Calcium Level 9.1 mg/dL (8.5-10.1) Magnesium Level 1.9 mg/dL (1.8-2.4) Laboratory Tests Test 04/08/21 14:10 04/08/21 17:36 04/08/21 21:05 04/09/21 06:25 Troponin I Quantitative 0.980 ng/mL (0.000-0.055) Glucose (Fingerstick) 201 mg/dL (70-99) 244 mg/dL (70-99) Sodium Level 138 mmol/L (136-145) Potassium Level 3.1 mmol/L (3.5-5.1) Chloride Level 98 mmol/L (98-107) Carbon Dioxide Level 29 mmol/L (21-32) Anion Gap 11 (6-14) Blood Urea Nitrogen 32 mg/dL (7-20) Creatinine 1.1 mg/dL (0.6-1.0) Estimated GFR (Cockcroft-Gault) 53.2 Glucose Level 187 mg/dL (70-99) Calcium Level 9.1 mg/dL (8.5-10.1) Magnesium Level 1.9 mg/dL (1.8-2.4) Test 04/09/21 07:55 04/09/21 12:09 Glucose (Fingerstick) 176 mg/dL (70-99) 249 mg/dL (70-99) Medications Current Medications Albuterol/ Ipratropium (Duoneb) 9 ml 1X ONCE NEB Last administered on 04/07/21at 09:57; Start 04/07/21 at 09:45; Stop 04/07/21 at 09:46; Status DC Dexamethasone (Decadron) 10 mg 1X ONCE PO Last administered on 04/07/21at 09:46; Start 04/07/21 at 10:00; Stop 04/07/21 at 10:01; Status DC Iohexol (Omnipaque 350 Mg/ml) 100 ml 1X ONCE IV Last administered on 04/07/21at 12:37; Start 04/07/21 at 13:00; Stop 04/07/21 at 13:01; Status DC Info (CONTRAST GIVEN -- Rx MONITORING) 1 each PRN DAILY PRN MC SEE COMMENTS; Start 04/07/21 at 12:30; Stop 04/09/21 at 12:29; Status DC Insulin Human Regular (HumuLIN R VIAL) 10 unit 1X ONCE IV Last administered on 04/07/21at 15:40; Start 04/07/21 at 15:15; Stop 04/07/21 at 15:16; Status DC Insulin Glargine (Lantus Syringe) 30 unit QHS SQ Last administered on 04/07/21at 20:56; Start 04/07/21 at 21:00; Stop 04/08/21 at 06:32; Status DC Insulin Human Lispro (HumaLOG) 10 units TIDWMEALS SQ Last administered on 04/07/21at 17:10; Start 04/07/21 at 17:00; Stop 04/08/21 at 06:33; Status DC Dextrose (Dextrose 50%-Water Syringe) 12.5 gm PRN Q15MIN PRN IV SEE COMMENTS; Start 04/07/21 at 15:45; Stop 04/08/21 at 11:58; Status DC Dextrose (Iv Dextrose 5%) 250 ml PRN Q15MIN PRN IV SEE COMMENTS; Start 04/07/21 at 15:45 Ondansetron HCl (Zofran) 4 mg PRN Q6HRS PRN IVP NAUSEA/VOMITING; Start 04/07/21 at 16:00 Al Hydroxide/Mg Hydroxide (Mylanta Plus Xs) 30 ml PRN Q3HRS PRN PO HEARTBURN / GAS; Start 04/07/21 at 16:00 Calcium Carbonate/ Glycine (Tums) 500 mg PRN Q3HRS PRN PO UPSET STOMACH; Start 04/07/21 at 16:00 Zolpidem Tartrate (Ambien) 5 mg PRN QHS PRN PO INSOMNIA, MAY REPEAT IN 1HR Last administered on 04/08/21at 21:38; Start 04/07/21 at 16:00 Acetaminophen/ Hydrocodone Bitart (Lortab 5/325) 1 tab PRN Q4HRS PRN PO MILD PAIN 1-3 Last administered on 04/08/21at 21:38; Start 04/07/21 at 16:00 Acetaminophen (Tylenol) 650 mg PRN Q6HRS PRN PO Headaches, Temp > 101.5F; Start 04/07/21 at 16:00 Magnesium Hydroxide (Milk Of Magnesia) 2,400 mg PRN Q12HR PRN PO CONSTIPATION; Start 04/07/21 at 16:00 Bisacodyl (Dulcolax Supp) 10 mg PRN DAILY PRN MI CONSTIPATION; Start 04/07/21 at 16:00 Enoxaparin Sodium (Lovenox 60mg Syringe) 60 mg Q12HR SQ Last administered on 04/08/21at 08:29; Start 04/07/21 at 21:00; Stop 04/08/21 at 10:01; Status DC Morphine Sulfate (Morphine Sulfate) 4 mg PRN Q2HR PRN IV PAIN; Start 04/07/21 at 16:00 Nitroglycerin (Nitrostat) 0.4 mg PRN Q5MIN PRN SL CHEST PAIN; Start 04/07/21 at 16:00 Aspirin (Ecotrin) 81 mg DAILYWBKFT PO Last administered on 04/09/21at 08:53; Start 04/08/21 at 08:00 Carvedilol (Coreg) 6.25 mg BIDWMEALS PO Last administered on 04/09/21 08:52; Start 04/08/21 at 08:00 Furosemide (Lasix) 40 mg DAILY PO Last administered on 04/09/21 08:53; Start 04/08/21 at 09:00 Lisinopril (Prinivil) 5 mg DAILY PO Last administered on 04/09/21 08:53; Start 04/08/21 at 09:00 Insulin Human Lispro (HumaLOG) 12 units 1X ONCE SQ Last administered on 04/07/21 22:03; Start 04/07/21 at 21:45; Stop 04/07/21 at 21:46; Status DC Insulin Glargine (Lantus Syringe) 20 unit BID SQ Last administered on 04/08/21at 21:37; Start 04/08/21 at 09:00; Stop 04/09/21 at 07:59; Status DC Insulin Human Lispro (HumaLOG) 12 units TIDWMEALS SQ Last administered on 04/09/21at 12:29; Start 04/08/21 at 08:00 Enoxaparin Sodium (Lovenox 40mg Syringe) 40 mg Q12HR SQ Last administered on 04/09/21 08:54; Start 04/08/21 at 21:00 Insulin Human Lispro (HumaLOG) 0-9 UNITS TIDWMEALS SQ Last administered on 04/09/21at 12:28; Start 04/08/21 at 12:00 Dextrose (Dextrose 50%-Water Syringe) 12.5 gm PRN Q15MIN PRN IV SEE COMMENTS; Start 04/08/21 at 12:00 Insulin Human Lispro (HumaLOG) 25 units 1X SQ Last administered on 04/08/21at 12:22; Start 04/08/21 at 12:30 Linagliptin (Tradjenta) 5 mg DAILY PO Last administered on 04/09/21 08:53; Start 04/08/21 at 13:00 Potassium Chloride (Klor-Con) 40 meq 1X ONCE PO Last administered on 04/09/21 08:53; Start 04/09/21 at 08:00; Stop 04/09/21 at 08:01; Status DC Potassium Chloride/Water 100 ml @ 100 mls/hr Q1H IV Last administered on 04/09/21at 11:15; Start 04/09/21 at 08:30; Stop 04/09/21 at 10:29; Status DC Insulin Glargine (Lantus Syringe) 35 unit QHS SQ ; Start 04/09/21 at 21:00 Metformin HCl (Glucophage) 500 mg BIDWMEALS PO ; Start 04/09/21 at 17:00; Stop 04/09/21 at 11:32; Status DC Potassium Chloride (Klor-Con) 20 meq DAILYWBKFT PO ; Start 04/10/21 at 08:00 Metformin HCl (Glucophage) 500 mg BIDWMEALS PO Last administered on 04/09/21at 12:25; Start 04/09/21 at 11:30 Active Scripts Active Admelog (Insulin Lispro) 100 Unit/1 Ml Vial 0 Units SQ TIDWMEALS 30 Days Prednisone 20 Mg Tablet 60 Mg PO DAILY 7 Days Culturelle (Lactobacillus Rhamnosus Gg) 1 Each Cap.sprink 1 Cap PO BID 30 Days Combivent Respimat Inhal (Ipratropium/Albuterol Sulfate) 4 Gm Aer.w.adap 1 Puff INH Q4HRS W/A 30 Days Doxycycline Hyclate 100 Mg Tablet 100 Mg PO BID 10 Days Potassium 25 Meq Tablet Eff (Potassium Bicarbonate/Cit Ac) 25 Meq Tablet.eff 25 Meq PO DAILY 20 Days Lisinopril 2.5 Mg Tablet 2.5 Mg PO DAILY 30 Days Furosemide 40 Mg Tablet 40 Mg PO DAILY 30 Days Carvedilol (Carvedilol) 6.25 Mg Tablet 6.25 Mg PO BIDWMEALS 30 Days Benzonatate 100 Mg Capsule 100 Mg PO [id number] Aspirin Ec (Aspirin) 81 Mg Tablet. 81 Mg PO DAILYWBKFT Reported [quvar inhaler] Proair Hfa Inhaler (Albuterol Sulfate) 8.5 Gm Hfa.aer.ad 2 Puff IH PRN Q4-6HRS PRN Vitals/I & O Vital Sign - Last 24 Hours 04/08/21 04/08/21 04/08/21 04/08/21 15:00 17:41 19:20 19:55 Temp 98.0 97.7 98.0 97.7 Pulse 80 80 81 Resp 16 21 B/P (MAP) 96/52 (67) 96/52 108/75 (86) Pulse Ox 94 96 O2 Delivery Nasal Cannula Room Air Room Air 04/08/21 04/08/21 04/08/21 04/09/21 21:38 22:08 23:45 03:15 Temp 97.7 97.6 97.7 97.6 Pulse 59 55 Resp 18 20 20 B/P (MAP) 131/70 (90) 134/69 (90) Pulse Ox 96 96 96 98 O2 Delivery Room Air Room Air Room Air Room Air 04/09/21 04/09/21 04/09/21 04/09/21 07:00 07:40 08:52 08:53 Temp 98.0 98.0 Pulse 60 70 70 Resp 16 B/P (MAP) 109/62 (78) 134/69 134/69 Pulse Ox 93 O2 Delivery Room Air Room Air 04/09/21 11:00 Temp 97.9 97.9 Pulse 69 Resp 16 B/P (MAP) 99/51 (67) Pulse Ox 94 O2 Delivery Room Air Intake and Output 04/08/21 04/08/21 04/09/21 15:00 23:00 07:00 Intake Total 400 ml 180 ml 400 ml Output Total 1000 ml 100 ml 100 ml Balance -600 ml 80 ml 300 ml Justifications for Admission Other Justification Shortness of breath, chest pressure MILEY MOTTA MD April 09, 2021 13:27
[2021-04-09 15:03] VITALS: BP 97/46
--- NOTE | 2021-04-09 15:12 | CARD ---
MR#: [id number] Date of Study: 04/09/2021 Ordering Physician: MILEY THRASHER, Referring Physician: MILEY THRASHER, Tech: Xochitl Monterrosoanjummame, [facility] APPROVED REPORT EXAM: Two-dimensional and M-mode echocardiogram with Doppler and color Doppler. Other Information Quality : AverageHR: 66bpm Technically limited study due to body habitus. INDICATION COPD Dyspnea Cardiomyopathy Chest Pain Congestive Heart Failure RISK FACTORS Diabetes 2D DIMENSIONS Left Atrium(2D)4.0 (1.6-4.0cm)IVSd1.1 (0.7-1.1cm) Aortic Root(2D)3.1 (2.0-3.7cm)LVDd6.4 (3.9-5.9cm) LVOT Diameter2.1 (1.8-2.4cm)PWd1.2 (0.7-1.1cm) LVDs5.6 (2.5-4.0cm)FS (%) 13.2 % SV58.2 ml Aortic Valve AoV Peak Basim.135.9cm/sAoV VTI26.0cm AO Peak GR.7.4mmHgLVOT VTI 16.20cm AO Mean GR.4mmHg Mitral Valve MV E Dwejltbe506.9cm/sMV E Peak Gr.75mmHg MV DECEL [id number] A Ichsuhad71.8cm/s MV E Mean Gr.47mmHgE/A Ratio1.8 TDI Lateral E' P. V7.08cm/sMedial E' P. V4.46cm/s E/Lateral E'17.9E/Medial E'28.5 Tricuspid Valve TR P. Obirndje194qn/sRAP [id number] TR Peak Gr.[id number] Pulmonary Vein S1 Vrfdcabi09.1cm/sS2 Tabwptje61.52cm/s D2 Bjhdgsdl77.5cm/s LEFT VENTRICLE The Left Ventricle is moderately dilated. There is mild concentric left ventricular hypertrophy. The systolic function is severely impaired. The Ejection Fraction is 25-30%. There is global hypokinesis of the left ventricle. The left ventricular diastolic function and filling is normal for age. RIGHT VENTRICLE The right ventricle is normal size. There is normal right ventricular wall thickness. The right ventr icular systolic function is normal. ATRIA The left atrium size is normal. The right atrium size is normal. The interatrial septum is intact wit h no evidence for an atrial septal defect or patent foramen ovale as noted on 2-D or Doppler imaging. AORTIC VALVE The aortic valve is normal in structure and function. Doppler and Color Flow revealed no significant aortic regurgitation. There is no significant aortic valvular stenosis. Calculated aortic valve area is 2.16 cm2 with maximum pressure gradient of 8 mmHg and mean pressure gradient of 5 mmHg. MITRAL VALVE The mitral valve is normal in structure and function. There is no evidence of mitral valve prolapse. There is no mitral valve stenosis. Doppler and Color-flow revealed trace mitral regurgitation. TRICUSPID VALVE The tricuspid valve is normal in structure and function. Doppler and Color Flow revealed trace to mil d tricuspid regurgitation with an estimated PAP of 38 mmHg. PULMONIC VALVE The pulmonic valve is not well visualized. Doppler and Color Flow revealed trace pulmonic valvular re gurgitation. GREAT VESSELS The aortic root is normal in size. The ascending aorta is normal in size. The IVC is dilated. PERICARDIAL EFFUSION There is no evidence of significant pericardial effusion. Critical Notification Critical Value: No <Conclusion> The Left Ventricle is moderately dilated. The systolic function is severely impaired. The Ejection Fraction is 25-30%. There is global hypokinesis of the left ventricle. There is mild concentric left ventricular hypertrophy. Doppler and Color Flow revealed no significant aortic regurgitation. There is no significant aortic valvular stenosis. Doppler and Color-flow revealed trace mitral regurgitation. Doppler and Color Flow revealed trace to mild tricuspid regurgitation with an estimated PAP of 38 mmH g. Signed by : Miley Thrasher MD Electronically Approved : 04/09/2021 15:11:44
[2021-04-09] MEDS ORDERED: metFORMIN 500 MG TABLET PO SCH (17:00)
[2021-04-09 19:45] VITALS: BP 101/51
[2021-04-09] MEDS: HYDROcodone/APAP 5/325MG 1 TAB TABLET PO PRN (21:26)
[2021-04-09] MEDS: ZOLPIDEM 5 MG TABLET. PO PRN (21:26)
[2021-04-09] MEDS: INSULIN GLARGINE SYRINGE. SQ SCH (21:28)
[2021-04-09 22:45] VITALS: BP 95/59
[2021-04-10 02:50] VITALS: BP 127/68
[2021-04-10 07:00] VITALS: BP 116/71
[2021-04-10] MEDS: INSULIN LISPRO 300 UNITS/3 ML VIAL. SQ SCH ×6 (08:00→17:02)
[2021-04-10] MEDS: LINAGLIPTIN 5 MG TABLET PO SCH (08:22)
[2021-04-10] MEDS: FUROSEMIDE 40 MG TABLET. PO SCH (08:22)
[2021-04-10] MEDS: ASPIRIN ENTERIC COATED 81 MG TABLET.DR. PO SCH (08:22)
[2021-04-10] MEDS: metFORMIN 500 MG TABLET PO SCH ×2 (08:22→16:58)
[2021-04-10] MEDS: POTASSIUM CHLORIDE 20 MEQ TABLET.ER. PO SCH (08:22)
[2021-04-10] MEDS: CARVEDILOL 6.25 MG TABLET. PO SCH ×2 (08:23→16:59)
[2021-04-10] MEDS: LISINOPRIL 5 MG TABLET. PO SCH (08:23)
[2021-04-10] MEDS: ENOXAPARIN 40 MG/0.4 ML SYRINGE. SQ SCH ×2 (08:28→21:23)
[2021-04-10 08:30] LABS: CALCIUM 8.9 mg/dL (8.5-10.1); CREATININE 0.9 mg/dL (0.6-1.0); GFR 67.1; POTASSIUM 3.3 mmol/L (3.5-5.1)
--- NOTE | 2021-04-10 09:25 | PDOC ---
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 Ejection Fraction is 25-30%. global hypokinesis of the left ventricle. mild concentric left ventricular hypertrophy. Doppler and Color Flow revealed no significant aortic regurgitation. Acute COPD - nebs prn Elevated BNP - due to acute CHF exacerbation DM2 - Hyperglycemia, a1c 11.6 due to newly diagnosed diabetes. Sliding scale insulin, lantus, add tradjenta, outpatient should be on jardiance given severity of CHF HTN - cont home medications Morbid obesity - needs Plan: Morphine, nitroglycerin as needed Will obtain limited echo Patient denies any prior diagnosis of DM2. Provide basal/prandial insulin; Resume home medication plan=== FEN - Cardiac diet PPX - Lovenox FULL CODE Dispo - inpatient for above D/W RN SNORES at night may have SOFY , CHK HS OXIMETRY STUDY Advance Care Planning: Total time spent [id number] with patient 16 minutes in discussion with goals of care, comfort care, end-of-life care, pain management, code status; patient names her boyfriend (Kylah Saleem) as surrogate decision-maker. History of Present Illness History of Present Illness Ms Laguerre is a 45-year-old female with past medical history CHF, COPD, HTN, who presents to the ED with complaints of shortness of breath for the past 2 days. She reports associated chest heaviness and wheezing. She treated herself with her home albuterol and breathing treatment without significant improvement. Upon arrival in the ED she received Decadron 10 mg IV and duo nebulizer with improvement in her shortness of breath, wheezing, and chest heaviness. Upon chart review, she had a left heart cath and 05/03/2016 that showed severe LV systolic dysfunction, EF 15-20%; no significant obstructive coronary artery disease. She was recommended aggressive medical therapy and reassessment of EF in 3 months. A repeat repeat echocardiogram on 11/13/2016 showed EF 15-20% with severe global hypokinesis. Initial lab work in the ED showed troponin 0.029, BNP 881, CBG 423, K 3.4, Na 134. Due to concerns for PE, CTA of chest was obtained that showed no evidence of PE. Of note, patient is somewhat of a poor historian in regards to her medication complaints. In review of her current medications she has multiple contraindication medications including BECKY-I and ARB's together. She states that she was scheduled for an AICD to be placed at , but this was postponed due to COVID-19. She has not followed up at because she states she did not like her commercial hvac service technician there. Due to her significant cardiac risk factors admitted patient for further monitoring. 04/08: Still short of breath no further chest pain. Troponin is climbing up greater than 1. Glucose over 400. Note she has no prior doses diagnosed diabetes. A1c > 11 Shortness of breath improved a little no chest pain. Troponin down below 1. Glucose less than 200 now. Potassium 3.1 today. Vitals Vitals Vital Signs Date Time Temp Pulse Resp B/P (MAP) Pulse Ox O2 Delivery O2 Flow Rate FiO2 04/10/21 08:23 69 116/71 04/10/21 07:48 Room Air 04/10/21 07:00 97.6 16 94 97.6 Physical Exam General: Alert, Oriented X3, Cooperative, No acute distress Heart: Regular rate, Normal S1, Normal S2 Lungs: Wheezing Abdomen: Normal bowel sounds Extremities: No cyanosis Skin: No significant lesion Labs LABS TDI Lateral E' P. V 7.08cm/s Medial E' P. V 4.46cm/s E/Lateral E' 17.9 E/Medial E' 28.5 Tricuspid Valve TR P. Velocity 272cm/s RAP ESTIMATE 8mmHg TR Peak Gr. 30mmHg RVSP 38mmHg Pulmonary Vein S1 Velocity 37.1cm/s S2 Velocity 52.52cm/s D2 Velocity 52.5cm/s LEFT VENTRICLE The Left Ventricle is moderately dilated. There is mild concentric left ventricular hypertrophy. The systolic function is severely impaired. The Ejection Fraction is 25-30%. There is global hypokinesis of the left ventricle. The left ventricular diastolic function and filling is normal for age. RIGHT VENTRICLE The right ventricle is normal size. There is normal right ventricular wall thickness. The right ventricular systolic function is normal. ATRIA The left atrium size is normal. The right atrium size is normal. The interatrial septum is intact with no evidence for an atrial septal defect or patent foramen ovale as noted on 2-D or Doppler imaging. AORTIC VALVE The aortic valve is normal in structure and function. Doppler and Color Flow revealed no significant aortic regurgitation. There is no significant aortic valvular stenosis. Calculated aortic valve area is 2.16 cm2 with maximum pressure gradient of 8 mmHg and mean pressure gradient of 5 mmHg. MITRAL VALVE The mitral valve is normal in structure and function. There is no evidence of mitral valve prolapse. There is no mitral valve stenosis. Doppler and Color-flow revealed trace mitral regurgitation. TRICUSPID VALVE The tricuspid valve is normal in structure and function. Doppler and Color Flow revealed trace to mild tricuspid regurgitation with an estimated PAP of 38 mmHg. PULMONIC VALVE The pulmonic valve is not well visualized. Doppler and Color Flow revealed trace pulmonic valvular regurgitation. GREAT VESSELS The aortic root is normal in size. The ascending aorta is normal in size. The IVC is dilated. PERICARDIAL EFFUSION There is no evidence of significant pericardial effusion. Critical Notification Critical Value: No <Conclusion> The Left Ventricle is moderately dilated. The systolic function is severely impaired. The Ejection Fraction is 25-30%. There is global hypokinesis of the left ventricle. There is mild concentric left ventricular hypertrophy. Doppler and Color Flow revealed no significant aortic regurgitation. There is no significant aortic valvular stenosis. Doppler and Color-flow revealed trace mitral regurgitation. Doppler and Color Flow revealed trace to mild tricuspid regurgitation with an estimated PAP of 38 mmHg. Signed by : Miley Thrasher MD Electronically Approved : 04/09/2021 15:11:44 DICTATED and SIGNED BY: MILEY THRASHER MD DATE: 04/09/21 [id number] Laboratory Tests Test 04/09/21 12:09 04/09/21 16:52 04/09/21 21:11 04/10/21 07:24 Glucose (Fingerstick) 249 mg/dL (70-99) 168 mg/dL (70-99) 189 mg/dL (70-99) 150 mg/dL (70-99) Test 04/10/21 07:35 Sodium Level 140 mmol/L (136-145) Potassium Level 3.3 mmol/L (3.5-5.1) Chloride Level 103 mmol/L (98-107) Carbon Dioxide Level 30 mmol/L (21-32) Anion Gap 7 (6-14) Blood Urea Nitrogen 26 mg/dL (7-20) Creatinine 0.9 mg/dL (0.6-1.0) Estimated GFR (Cockcroft-Gault) 67.1 Glucose Level 145 mg/dL (70-99) Calcium Level 8.9 mg/dL (8.5-10.1) Assessment and Plan Assessmemt and Plan Problems Medical Problems: (1) Chest pain Status: Acute (2) Diabetes mellitus, new onset Status: Acute (3) Dyspnea Status: Acute Comment Review of Relevant I have reviewed the following items javed (where applicable) has been applied. Labs Laboratory Tests Test 04/08/21 11:44 04/08/21 14:10 04/08/21 17:36 04/08/21 21:05 Glucose (Fingerstick) 414 mg/dL (70-99) 201 mg/dL (70-99) 244 mg/dL (70-99) Troponin I Quantitative 0.980 ng/mL (0.000-0.055) Test 04/09/21 06:25 04/09/21 07:55 04/09/21 12:09 04/09/21 16:52 Sodium Level 138 mmol/L (136-145) Potassium Level 3.1 mmol/L (3.5-5.1) Chloride Level 98 mmol/L (98-107) Carbon Dioxide Level 29 mmol/L (21-32) Anion Gap 11 (6-14) Blood Urea Nitrogen 32 mg/dL (7-20) Creatinine 1.1 mg/dL (0.6-1.0) Estimated GFR (Cockcroft-Gault) 53.2 Glucose Level 187 mg/dL (70-99) Calcium Level 9.1 mg/dL (8.5-10.1) Magnesium Level 1.9 mg/dL (1.8-2.4) Glucose (Fingerstick) 176 mg/dL (70-99) 249 mg/dL (70-99) 168 mg/dL (70-99) Test 04/09/21 21:11 04/10/21 07:24 04/10/21 07:35 Glucose (Fingerstick) 189 mg/dL (70-99) 150 mg/dL (70-99) Sodium Level 140 mmol/L (136-145) Potassium Level 3.3 mmol/L (3.5-5.1) Chloride Level 103 mmol/L (98-107) Carbon Dioxide Level 30 mmol/L (21-32) Anion Gap 7 (6-14) Blood Urea Nitrogen 26 mg/dL (7-20) Creatinine 0.9 mg/dL (0.6-1.0) Estimated GFR (Cockcroft-Gault) 67.1 Glucose Level 145 mg/dL (70-99) Calcium Level 8.9 mg/dL (8.5-10.1) Laboratory Tests Test 04/09/21 12:09 04/09/21 16:52 04/09/21 21:11 04/10/21 07:24 Glucose (Fingerstick) 249 mg/dL (70-99) 168 mg/dL (70-99) 189 mg/dL (70-99) 150 mg/dL (70-99) Test 04/10/21 07:35 Sodium Level 140 mmol/L (136-145) Potassium Level 3.3 mmol/L (3.5-5.1) Chloride Level 103 mmol/L (98-107) Carbon Dioxide Level 30 mmol/L (21-32) Anion Gap 7 (6-14) Blood Urea Nitrogen 26 mg/dL (7-20) Creatinine 0.9 mg/dL (0.6-1.0) Estimated GFR (Cockcroft-Gault) 67.1 Glucose Level 145 mg/dL (70-99) Calcium Level 8.9 mg/dL (8.5-10.1) Medications Current Medications Albuterol/ Ipratropium (Duoneb) 9 ml 1X ONCE NEB Last administered on 04/07/21at 09:57; Start 04/07/21 at 09:45; Stop 04/07/21 at 09:46; Status DC Dexamethasone (Decadron) 10 mg 1X ONCE PO Last administered on 04/07/21at 09:46; Start 04/07/21 at 10:00; Stop 04/07/21 at 10:01; Status DC Iohexol (Omnipaque 350 Mg/ml) 100 ml 1X ONCE IV Last administered on 04/07/21at 12:37; Start 04/07/21 at 13:00; Stop 04/07/21 at 13:01; Status DC Info (CONTRAST GIVEN -- Rx MONITORING) 1 each PRN DAILY PRN MC SEE COMMENTS; Start 04/07/21 at 12:30; Stop 04/09/21 at 12:29; Status DC Insulin Human Regular (HumuLIN R VIAL) 10 unit 1X ONCE IV Last administered on 04/07/21at 15:40; Start 04/07/21 at 15:15; Stop 04/07/21 at 15:16; Status DC Insulin Glargine (Lantus Syringe) 30 unit QHS SQ Last administered on 04/07/21at 20:56; Start 04/07/21 at 21:00; Stop 04/08/21 at 06:32; Status DC Insulin Human Lispro (HumaLOG) 10 units TIDWMEALS SQ Last administered on 04/07/21at 17:10; Start 04/07/21 at 17:00; Stop 04/08/21 at 06:33; Status DC Dextrose (Dextrose 50%-Water Syringe) 12.5 gm PRN Q15MIN PRN IV SEE COMMENTS; Start 04/07/21 at 15:45; Stop 04/08/21 at 11:58; Status DC Dextrose (Iv Dextrose 5%) 250 ml PRN Q15MIN PRN IV SEE COMMENTS; Start 04/07/21 at 15:45 Ondansetron HCl (Zofran) 4 mg PRN Q6HRS PRN IVP NAUSEA/VOMITING; Start 04/07/21 at 16:00 Al Hydroxide/Mg Hydroxide (Mylanta Plus Xs) 30 ml PRN Q3HRS PRN PO HEARTBURN / GAS; Start 04/07/21 at 16:00 Calcium Carbonate/ Glycine (Tums) 500 mg PRN Q3HRS PRN PO UPSET STOMACH; Start 04/07/21 at 16:00 Zolpidem Tartrate (Ambien) 5 mg PRN QHS PRN PO INSOMNIA, MAY REPEAT IN 1HR Last administered on 04/09/21at 21:26; Start 04/07/21 at 16:00 Acetaminophen/ Hydrocodone Bitart (Lortab 5/325) 1 tab PRN Q4HRS PRN PO MILD PAIN 1-3 Last administered on 04/09/21at 21:26; Start 04/07/21 at 16:00 Acetaminophen (Tylenol) 650 mg PRN Q6HRS PRN PO Headaches, Temp > 101.5F; Start 04/07/21 at 16:00 Magnesium Hydroxide (Milk Of Magnesia) 2,400 mg PRN Q12HR PRN PO CONSTIPATION; Start 04/07/21 at 16:00 Bisacodyl (Dulcolax Supp) 10 mg PRN DAILY PRN [place] CONSTIPATION; Start 04/07/21 at 16:00 Enoxaparin Sodium (Lovenox 60mg Syringe) 60 mg Q12HR SQ Last administered on 04/08/21at 08:29; Start 04/07/21 at 21:00; Stop 04/08/21 at 10:01; Status DC Morphine Sulfate (Morphine Sulfate) 4 mg PRN Q2HR PRN IV PAIN; Start 04/07/21 at 16:00 Nitroglycerin (Nitrostat) 0.4 mg PRN Q5MIN PRN SL CHEST PAIN; Start 04/07/21 at 16:00 Aspirin (Ecotrin) 81 mg DAILYWBKFT PO Last administered on 04/10/21at 08:22; Start 04/08/21 at 08:00 Carvedilol (Coreg) 6.25 mg BIDWMEALS PO Last administered on 04/10/21at 08:23; Start 04/08/21 at 08:00 Furosemide (Lasix) 40 mg DAILY PO Last administered on 04/10/21at 08:22; Start 04/08/21 at 09:00 Lisinopril (Prinivil) 5 mg DAILY PO Last administered on 04/10/21at 08:23; Start 04/08/21 at 09:00 Insulin Human Lispro (HumaLOG) 12 units 1X ONCE SQ Last administered on 04/07/21at 22:03; Start 04/07/21 at 21:45; Stop 04/07/21 at 21:46; Status DC Insulin Glargine (Lantus Syringe) 20 unit BID SQ Last administered on 04/08/21at 21:37; Start 04/08/21 at 09:00; Stop 04/09/21 at 07:59; Status DC Insulin Human Lispro (HumaLOG) 12 units TIDWMEALS SQ Last administered on 04/10/21at 08:28; Start 04/08/21 at 08:00 Enoxaparin Sodium (Lovenox 40mg Syringe) 40 mg Q12HR SQ Last administered on 04/10/21at 08:28; Start 04/08/21 at 21:00 Insulin Human Lispro (HumaLOG) 0-9 UNITS TIDWMEALS SQ Last administered on 04/09/21at 17:33; Start 04/08/21 at 12:00 Dextrose (Dextrose 50%-Water Syringe) 12.5 gm PRN Q15MIN PRN IV SEE COMMENTS; Start 04/08/21 at 12:00 Insulin Human Lispro (HumaLOG) 25 units 1X SQ Last administered on 04/08/21at 12:22; Start 04/08/21 at 12:30 Linagliptin (Tradjenta) 5 mg DAILY PO Last administered on 04/10/21at 08:22; Start 04/08/21 at 13:00 Potassium Chloride (Klor-Con) 40 meq 1X ONCE PO Last administered on 04/09/21at 08:53; Start 04/09/21 at 08:00; Stop 04/09/21 at 08:01; Status DC Potassium Chloride/Water 100 ml @ 100 mls/hr Q1H IV Last administered on 04/09/21at 11:15; Start 04/09/21 at 08:30; Stop 04/09/21 at 10:29; Status DC Insulin Glargine (Lantus Syringe) 35 unit QHS SQ Last administered on 04/09/21at 21:28; Start 04/09/21 at 21:00 Metformin HCl (Glucophage) 500 mg BIDWMEALS PO ; Start 04/09/21 at 17:00; Stop 04/09/21 at 11:32; Status DC Potassium Chloride (Klor-Con) 20 meq DAILYWBKFT PO Last administered on 04/10/21at 08:22; Start 04/10/21 at 08:00 Metformin HCl (Glucophage) 500 mg BIDWMEALS PO Last administered on 04/10/21at 08:22; Start 04/09/21 at 11:30 Active Scripts Active Admelog (Insulin Lispro) 100 Unit/1 Ml Vial 0 Units SQ TIDWMEALS 30 Days Prednisone 20 Mg Tablet 60 Mg PO DAILY 7 Days Culturelle (Lactobacillus Rhamnosus Gg) 1 Each Cap.sprink 1 Cap PO BID 30 Days Combivent Respimat Inhal (Ipratropium/Albuterol Sulfate) 4 Gm Aer.w.adap 1 Puff INH Q4HRS W/A 30 Days Doxycycline Hyclate 100 Mg Tablet 100 Mg PO BID 10 Days Potassium 25 Meq Tablet Eff (Potassium Bicarbonate/Cit Ac) 25 Meq Tablet.eff 25 Meq PO DAILY 20 Days Lisinopril 2.5 Mg Tablet 2.5 Mg PO DAILY 30 Days Furosemide 40 Mg Tablet 40 Mg PO DAILY 30 Days Carvedilol (Carvedilol) 6.25 Mg Tablet 6.25 Mg PO BIDWMEALS 30 Days Benzonatate 100 Mg Capsule 100 Mg PO [id number] Aspirin Ec (Aspirin) 81 Mg Tablet. 81 Mg PO DAILYWBKFT Reported [quvar inhaler] Proair Hfa Inhaler (Albuterol Sulfate) 8.5 Gm Hfa.aer.ad 2 Puff IH PRN Q4-6HRS PRN Vitals/I & O Vital Sign - Last 24 Hours 04/09/21 04/09/21 04/09/21 04/09/21 11:00 15:03 17:31 19:44 Temp 97.9 98.4 97.9 98.4 Pulse 69 73 73 Resp 16 16 B/P (MAP) 99/51 (67) 97/46 (63) 97/46 Pulse Ox 94 90 O2 Delivery Room Air Room Air Room Air 04/09/21 04/09/21 04/09/21 04/09/21 19:45 21:26 21:56 22:45 Temp 97.8 98.0 97.8 98.0 Pulse 72 75 Resp 20 20 20 18 B/P (MAP) 101/51 (68) 95/59 (71) Pulse Ox 95 92 O2 Delivery Room Air Room Air Room Air Room Air 04/10/21 04/10/21 04/10/21 04/10/21 02:50 07:00 07:48 08:23 Temp 98.5 97.6 98.5 97.6 Pulse 67 69 69 Resp 18 16 B/P (MAP) 127/68 (87) 116/71 (86) 116/71 Pulse Ox 94 94 O2 Delivery Room Air Room Air Room Air 04/10/21 08:23 Pulse 69 B/P (MAP) 116/71 Intake and Output 04/09/21 04/09/21 04/10/21 15:00 23:00 07:00 Intake Total 680 ml 480 ml 600 ml Balance 680 ml 480 ml 600 ml Justicifation of Admission Dx: Justifications for Admission: Justification of Admission Dx: Yes Acute COPD Exacerbation: Acute COPD Exacerbation ANN BARNES MD April 10, 2021 09:25
[2021-04-10 11:04] VITALS: BP 105/58
--- NOTE | 2021-04-10 12:37 | PDOC ---
PROGRESS NOTES Date of Service DATE: 04/10/21 TIME: 12:35 Subjective Subjective Patient seen and examined Objective Objective Vital Signs Date Time Temp Pulse Resp B/P (MAP) Pulse Ox O2 Delivery O2 Flow Rate FiO2 04/10/21 11:04 98.5 71 16 105/58 (74) 94 Room Air 98.5 Intake and Output 04/10/21 07:00 Intake Total 1760 ml Balance 1760 ml Intake Oral 1660 ml IV Total 100 ml Physical Exam Abdomen: Normal bowel sounds Heart: Regular rate General: No acute distress Lungs: Other (Slightly decreased breath sounds) Assessment Assessment Problems Medical Problems: (1) Chest pain Status: Acute (2) Diabetes mellitus, new onset Status: Acute (3) Dyspnea Status: Acute 1. Acute on chronic systolic heart failure. The patient continues to look and feel better. Updated echocardiogram shows an ejection fraction of 25 to 40%. We will continue present treatment. Increase activities. Follow-up with the patient's heart failure clinic. Patient has a history of severely decreased LV function but only mild coronary artery disease. 2. Acute exacerbation of COPD. Significantly improved on pulmonary treatments. Continue present treatment. 3. Hypertension. Blood pressure has improved. Continuing present medications and monitoring. 4. Diabetes mellitus. Glucose reportedly at 423 on admission. As per the primary service. Comment Review of Relevant I have reviewed the following items javed (where applicable) has been applied. Labs Laboratory Tests Test 04/08/21 14:10 04/08/21 17:36 04/08/21 21:05 04/09/21 06:25 Troponin I Quantitative 0.980 ng/mL (0.000-0.055) Glucose (Fingerstick) 201 mg/dL (70-99) 244 mg/dL (70-99) Sodium Level 138 mmol/L (136-145) Potassium Level 3.1 mmol/L (3.5-5.1) Chloride Level 98 mmol/L (98-107) Carbon Dioxide Level 29 mmol/L (21-32) Anion Gap 11 (6-14) Blood Urea Nitrogen 32 mg/dL (7-20) Creatinine 1.1 mg/dL (0.6-1.0) Estimated GFR (Cockcroft-Gault) 53.2 Glucose Level 187 mg/dL (70-99) Calcium Level 9.1 mg/dL (8.5-10.1) Magnesium Level 1.9 mg/dL (1.8-2.4) Test 04/09/21 07:55 04/09/21 12:09 04/09/21 16:52 04/09/21 21:11 Glucose (Fingerstick) 176 mg/dL (70-99) 249 mg/dL (70-99) 168 mg/dL (70-99) 189 mg/dL (70-99) Test 04/10/21 07:24 04/10/21 07:35 04/10/21 11:20 Glucose (Fingerstick) 150 mg/dL (70-99) 166 mg/dL (70-99) Sodium Level 140 mmol/L (136-145) Potassium Level 3.3 mmol/L (3.5-5.1) Chloride Level 103 mmol/L (98-107) Carbon Dioxide Level 30 mmol/L (21-32) Anion Gap 7 (6-14) Blood Urea Nitrogen 26 mg/dL (7-20) Creatinine 0.9 mg/dL (0.6-1.0) Estimated GFR (Cockcroft-Gault) 67.1 Glucose Level 145 mg/dL (70-99) Calcium Level 8.9 mg/dL (8.5-10.1) Laboratory Tests Test 04/09/21 16:52 04/09/21 21:11 04/10/21 07:24 04/10/21 07:35 Glucose (Fingerstick) 168 mg/dL (70-99) 189 mg/dL (70-99) 150 mg/dL (70-99) Sodium Level 140 mmol/L (136-145) Potassium Level 3.3 mmol/L (3.5-5.1) Chloride Level 103 mmol/L (98-107) Carbon Dioxide Level 30 mmol/L (21-32) Anion Gap 7 (6-14) Blood Urea Nitrogen 26 mg/dL (7-20) Creatinine 0.9 mg/dL (0.6-1.0) Estimated GFR (Cockcroft-Gault) 67.1 Glucose Level 145 mg/dL (70-99) Calcium Level 8.9 mg/dL (8.5-10.1) Test 04/10/21 11:20 Glucose (Fingerstick) 166 mg/dL (70-99) Medications Current Medications Albuterol/ Ipratropium (Duoneb) 9 ml 1X ONCE NEB Last administered on 04/07/21at 09:57; Start 04/07/21 at 09:45; Stop 04/07/21 at 09:46; Status DC Dexamethasone (Decadron) 10 mg 1X ONCE PO Last administered on 04/07/21at 09:46; Start 04/07/21 at 10:00; Stop 04/07/21 at 10:01; Status DC Iohexol (Omnipaque 350 Mg/ml) 100 ml 1X ONCE IV Last administered on 04/07/21at 12:37; Start 04/07/21 at 13:00; Stop 04/07/21 at 13:01; Status DC Info (CONTRAST GIVEN -- Rx MONITORING) 1 each PRN DAILY PRN MC SEE COMMENTS; Start 04/07/21 at 12:30; Stop 04/09/21 at 12:29; Status DC Insulin Human Regular (HumuLIN R VIAL) 10 unit 1X ONCE IV Last administered on 04/07/21at 15:40; Start 04/07/21 at 15:15; Stop 04/07/21 at 15:16; Status DC Insulin Glargine (Lantus Syringe) 30 unit QHS SQ Last administered on 04/07/21at 20:56; Start 04/07/21 at 21:00; Stop 04/08/21 at 06:32; Status DC Insulin Human Lispro (HumaLOG) 10 units TIDWMEALS SQ Last administered on 04/07/21at 17:10; Start 04/07/21 at 17:00; Stop 04/08/21 at 06:33; Status DC Dextrose (Dextrose 50%-Water Syringe) 12.5 gm PRN Q15MIN PRN IV SEE COMMENTS; Start 04/07/21 at 15:45; Stop 04/08/21 at 11:58; Status DC Dextrose (Iv Dextrose 5%) 250 ml PRN Q15MIN PRN IV SEE COMMENTS; Start 04/07/21 at 15:45 Ondansetron HCl (Zofran) 4 mg PRN Q6HRS PRN IVP NAUSEA/VOMITING; Start 04/07/21 at 16:00 Al Hydroxide/Mg Hydroxide (Mylanta Plus Xs) 30 ml PRN Q3HRS PRN PO HEARTBURN / GAS; Start 04/07/21 at 16:00 Calcium Carbonate/ Glycine (Tums) 500 mg PRN Q3HRS PRN PO UPSET STOMACH; Start 04/07/21 at 16:00 Zolpidem Tartrate (Ambien) 5 mg PRN QHS PRN PO INSOMNIA, MAY REPEAT IN 1HR Last administered on 04/09/21at 21:26; Start 04/07/21 at 16:00 Acetaminophen/ Hydrocodone Bitart (Lortab 5/325) 1 tab PRN Q4HRS PRN PO MILD PAIN 1-3 Last administered on 04/09/21at 21:26; Start 04/07/21 at 16:00 Acetaminophen (Tylenol) 650 mg PRN Q6HRS PRN PO Headaches, Temp > 101.5F; Start 04/07/21 at 16:00 Magnesium Hydroxide (Milk Of Magnesia) 2,400 mg PRN Q12HR PRN PO CONSTIPATION; Start 04/07/21 at 16:00 Bisacodyl (Dulcolax Supp) 10 mg PRN DAILY PRN NV CONSTIPATION; Start 04/07/21 at 16:00 Enoxaparin Sodium (Lovenox 60mg Syringe) 60 mg Q12HR SQ Last administered on 04/08/21at 08:29; Start 04/07/21 at 21:00; Stop 04/08/21 at 10:01; Status DC Morphine Sulfate (Morphine Sulfate) 4 mg PRN Q2HR PRN IV PAIN; Start 04/07/21 at 16:00 Nitroglycerin (Nitrostat) 0.4 mg PRN Q5MIN PRN SL CHEST PAIN; Start 04/07/21 at 16:00 Aspirin (Ecotrin) 81 mg DAILYWBKFT PO Last administered on 04/10/21at 08:22; Start 04/08/21 at 08:00 Carvedilol (Coreg) 6.25 mg BIDWMEALS PO Last administered on 04/10/21at 08:23; Start 04/08/21 at 08:00 Furosemide (Lasix) 40 mg DAILY PO Last administered on 04/10/21at 08:22; Start 04/08/21 at 09:00 Lisinopril (Prinivil) 5 mg DAILY PO Last administered on 04/10/21at 08:23; Start 04/08/21 at 09:00 Insulin Human Lispro (HumaLOG) 12 units 1X ONCE SQ Last administered on 04/07at 22:03; Start 04/07/21 at 21:45; Stop 04/07/21 at 21:46; Status DC Insulin Glargine (Lantus Syringe) 20 unit BID SQ Last administered on 04/08/21at 21:37; Start 04/08/21 at 09:00; Stop 04/09/21 at 07:59; Status DC Insulin Human Lispro (HumaLOG) 12 units TIDWMEALS SQ Last administered on 04/10/21at 12:13; Start 04/08/21 at 08:00 Enoxaparin Sodium (Lovenox 40mg Syringe) 40 mg Q12HR SQ Last administered on 04/10/21at 08:28; Start 04/08/21 at 21:00 Insulin Human Lispro (HumaLOG) 0-9 UNITS TIDWMEALS SQ Last administered on 04/10/21at 12:12; Start 04/08/21 at 12:00 Dextrose (Dextrose 50%-Water Syringe) 12.5 gm PRN Q15MIN PRN IV SEE COMMENTS; Start 04/08/21 at 12:00 Insulin Human Lispro (HumaLOG) 25 units 1X SQ Last administered on 04/08/21at 12:22; Start 04/08/21 at 12:30 Linagliptin (Tradjenta) 5 mg DAILY PO Last administered on 04/10/21at 08:22; Start 04/08/21 at 13:00 Potassium Chloride (Klor-Con) 40 meq 1X ONCE PO Last administered on 04/09/21at 08:53; Start 04/09/21 at 08:00; Stop 04/09/21 at 08:01; Status DC Potassium Chloride/Water 100 ml @ 100 mls/hr Q1H IV Last administered on 04/09/21at 11:15; Start 04/09/21 at 08:30; Stop 04/09/21 at 10:29; Status DC Insulin Glargine (Lantus Syringe) 35 unit QHS SQ Last administered on 04/09/21at 21:28; Start 04/09/21 at 21:00 Metformin HCl (Glucophage) 500 mg BIDWMEALS PO ; Start 04/09/21 at 17:00; Stop 04/09/21 at 11:32; Status DC Potassium Chloride (Klor-Con) 20 meq DAILYWBKFT PO Last administered on 04/10/21at 08:22; Start 04/10/21 at 08:00 Metformin HCl (Glucophage) 500 mg BIDWMEALS PO Last administered on 04/10/21at 08:22; Start 04/09/21 at 11:30 Active Scripts Active Admelog (Insulin Lispro) 100 Unit/1 Ml Vial 0 Units SQ TIDWMEALS 30 Days Prednisone 20 Mg Tablet 60 Mg PO DAILY 7 Days Culturelle (Lactobacillus Rhamnosus Gg) 1 Each Cap.sprink 1 Cap PO BID 30 Days Combivent Respimat Inhal (Ipratropium/Albuterol Sulfate) 4 Gm Aer.w.adap 1 Puff INH Q4HRS W/A 30 Days Doxycycline Hyclate 100 Mg Tablet 100 Mg PO BID 10 Days Potassium 25 Meq Tablet Eff (Potassium Bicarbonate/Cit Ac) 25 Meq Tablet.eff 25 Meq PO DAILY 20 Days Lisinopril 2.5 Mg Tablet 2.5 Mg PO DAILY 30 Days Furosemide 40 Mg Tablet 40 Mg PO DAILY 30 Days Carvedilol (Carvedilol) 6.25 Mg Tablet 6.25 Mg PO BIDWMEALS 30 Days Benzonatate 100 Mg Capsule 100 Mg PO [id number] Aspirin Ec (Aspirin) 81 Mg Tablet. 81 Mg PO DAILYWBKFT Reported [quvar inhaler] Proair Hfa Inhaler (Albuterol Sulfate) 8.5 Gm Hfa.aer.ad 2 Puff IH PRN Q4-6HRS PRN Vitals/I & O Vital Sign - Last 24 Hours 04/09/21 04/09/21 04/09/21 04/09/21 15:03 17:31 19:44 19:45 Temp 98.4 97.8 98.4 97.8 Pulse 73 73 72 Resp 16 20 B/P (MAP) 97/46 (63) 97/46 101/51 (68) Pulse Ox 90 95 O2 Delivery Room Air Room Air Room Air 04/09/21 04/09/21 04/09/21 04/10/21 21:26 21:56 22:45 02:50 Temp 98.0 98.5 98.0 98.5 Pulse 75 67 Resp 20 20 18 18 B/P (MAP) 95/59 (71) 127/68 (87) Pulse Ox 92 94 O2 Delivery Room Air Room Air Room Air Room Air 04/10/21 04/10/21 04/10/21 04/10/21 07:00 07:48 08:23 08:23 Temp 97.6 97.6 Pulse 69 69 69 Resp 16 B/P (MAP) 116/71 (86) 116/71 116/71 Pulse Ox 94 O2 Delivery Room Air Room Air 04/10/21 11:04 Temp 98.5 98.5 Pulse 71 Resp 16 B/P (MAP) 105/58 (74) Pulse Ox 94 O2 Delivery Room Air Intake and Output 04/09/21 04/09/21 04/10/21 15:00 23:00 07:00 Intake Total 680 ml 480 ml 600 ml Balance 680 ml 480 ml 600 ml Justifications for Admission Other Justification Shortness of breath, chest pressure MILEY MOTTA MD April 10, 2021 12:37
[2021-04-10] MEDS ORDERED: POTASSIUM CHLORIDE 20 MEQ TABLET.ER. PO ONE (13:00)
[2021-04-10 15:02] VITALS: BP 99/59
[2021-04-10 19:40] VITALS: BP 117/68
[2021-04-10] MEDS: ZOLPIDEM 5 MG TABLET. PO PRN (21:23)
[2021-04-10] MEDS: INSULIN GLARGINE SYRINGE. SQ SCH (21:28)
[2021-04-10 23:15] VITALS: BP 125/60
[2021-04-11 03:45] VITALS: BP 105/67
[2021-04-11 07:00] VITALS: BP 124/70
[2021-04-11 07:33] LABS: BASO % 0 % (0-3); EOS # 0.1 x10^3/uL (0.0-0.7); EOS % 1 % (0-3); HEMATOCRIT 41.9 % (36.0-47.0); HEMOGLOBIN 14.2 g/dL (12.0-15.5); LYMPH # 1.9 x10^3/uL (1.0-4.8); LYMPH % 20 % (24-48); MEAN CORPUSCULAR HEMOGLOBIN 31 pg (25-35); MEAN CORPUSCULAR HGB CONC 34 g/dL (31-37); MEAN CORPUSCULAR VOLUME 91 fL (79-100); MONO % 10 % (0-9); NEUT # 6.5 x10^3/uL (1.8-7.7); NEUT % 69 % (31-73); PLATELET COUNT 214 x10^3/uL (140-400); RED BLOOD COUNT 4.58 x10^6/uL (3.50-5.40); RED CELL DISTRIBUTION WIDTH 14.4 % (11.5-14.5); WHITE BLOOD COUNT 9.4 x10^3/uL (4.0-11.0)
[2021-04-11 07:45] LABS: CALCIUM 9.1 mg/dL (8.5-10.1); CREATININE 0.9 mg/dL (0.6-1.0); GFR 67.1; POTASSIUM 3.6 mmol/L (3.5-5.1)
[2021-04-11] MEDS ORDERED: POTASSIUM CHLORIDE 20 MEQ TABLET.ER. PO SCH (08:00)
[2021-04-11] MEDS: CARVEDILOL 6.25 MG TABLET. PO SCH (08:33)
[2021-04-11] MEDS: ASPIRIN ENTERIC COATED 81 MG TABLET.DR. PO SCH (08:33)
[2021-04-11] MEDS: FUROSEMIDE 40 MG TABLET. PO SCH (08:33)
[2021-04-11] MEDS: POTASSIUM CHLORIDE 20 MEQ TABLET.ER. PO SCH (08:34)
[2021-04-11] MEDS: metFORMIN 500 MG TABLET PO SCH (08:34)
[2021-04-11] MEDS: LISINOPRIL 5 MG TABLET. PO SCH (08:34)
[2021-04-11] MEDS: INSULIN LISPRO 300 UNITS/3 ML VIAL. SQ SCH ×2 (08:35→08:36)
[2021-04-11] MEDS: LINAGLIPTIN 5 MG TABLET PO SCH (08:35)
[2021-04-11] MEDS: ENOXAPARIN 40 MG/0.4 ML SYRINGE. SQ SCH (08:37)
--- NOTE | 2021-04-11 08:37 | NUR ---
HELD LOVENOX DUE TO PT GOING FOR AICD TODAY.
--- NOTE | 2021-04-11 10:32 | PDOC ---
CARDIO Progress Notes Date and Time Date of Service 04/11/21 Time of Evaluation 1000 Subjective Subjective: No Chest Pain, No shortness of breath, No Palpitations Vitals Vitals Vital Signs Date Time Temp Pulse Resp B/P (MAP) Pulse Ox O2 Delivery O2 Flow Rate FiO2 04/11/21 08:34 77 124/70 04/11/21 08:00 Room Air 04/11/21 07:00 98.6 16 94 98.6 Weight Weight [ ] Input and Output Intake and Output l Intake and Output 04/11/21 07:00 Intake Total 2070 ml Balance 2070 ml Intake Oral 2070 ml # Voids 4 Laboratory Labs Laboratory Tests Test 04/10/21 11:20 04/10/21 16:23 04/10/21 20:55 04/11/21 07:05 Glucose (Fingerstick) 166 mg/dL (70-99) 210 mg/dL (70-99) 194 mg/dL (70-99) White Blood Count 9.4 x10^3/uL (4.0-11.0) Red Blood Count 4.58 x10^6/uL (3.50-5.40) Hemoglobin 14.2 g/dL (12.0-15.5) Hematocrit 41.9 % (36.0-47.0) Mean Corpuscular Volume 91 fL (79-100) Mean Corpuscular Hemoglobin 31 pg (25-35) Mean Corpuscular Hemoglobin Concent 34 g/dL (31-37) Red Cell Distribution Width 14.4 % (11.5-14.5) Platelet Count 214 x10^3/uL (140-400) Neutrophils (%) (Auto) 69 % (31-73) Lymphocytes (%) (Auto) 20 % (24-48) Monocytes (%) (Auto) 10 % (0-9) Eosinophils (%) (Auto) 1 % (0-3) Basophils (%) (Auto) 0 % (0-3) Neutrophils # (Auto) 6.5 x10^3/uL (1.8-7.7) Lymphocytes # (Auto) 1.9 x10^3/uL (1.0-4.8) Monocytes # (Auto) 1.0 x10^3/uL (0.0-1.1) Eosinophils # (Auto) 0.1 x10^3/uL (0.0-0.7) Basophils # (Auto) 0.0 x10^3/uL (0.0-0.2) Sodium Level 138 mmol/L (136-145) Potassium Level 3.6 mmol/L (3.5-5.1) Chloride Level 101 mmol/L (98-107) Carbon Dioxide Level 29 mmol/L (21-32) Anion Gap 8 (6-14) Blood Urea Nitrogen 17 mg/dL (7-20) Creatinine 0.9 mg/dL (0.6-1.0) Estimated GFR (Cockcroft-Gault) 67.1 Glucose Level 164 mg/dL (70-99) Calcium Level 9.1 mg/dL (8.5-10.1) Test 04/11/21 07:29 Glucose (Fingerstick) 170 mg/dL (70-99) Physical Exam HEENT: Neck Supple W Full Motion Chest: Symmetric LUNGS: Clear to Auscultation Heart: RRR Abdomen: Soft N/T Extremities: No Edema Neurology: alert, oriented, follow commands Assessment Assessment 1. Acute on chronic respiratory failure with a/c CHF and AE COPD 2. Acute on chronic systolic CHF; improved with diuresis 3. NICM; Echo with LVEF 25-30% 4. NSTEMI; trop peak 1.4. cath 2016 without CAD. Most probably type II, demand ischemia 5. Hypertension; controlled 6. Diabetes, II; uncontrolled. A1C 11. as per PCP 7. SOFY 8. Substance abuse; longstanding h/o methamphetamine use. Last used this past week 9. Noncompliance; out of meds x3 weeks Recommendations Secondary prevention measures; continue ASA. add statin Lipid panel Continue HF optimization with Lasix, BB, ACEi Outpatient stress test as arranged Discussed importance of compliance of medical therapy/followup and cessation from recreational drug use If compliance/followup is established and patient refrains from recreational drug use, will consider outpatient AICD implantation for primary prevention of SCD. Follow up in our office as arranged Justicifation of Admission Dx: Justifications for Admission: Justification of Admission Dx: Yes Acute COPD Exacerbation: Acute COPD Exacerbation JUAN CARLOS ROD APRN Apr 11, 2021 10:32
--- NOTE | 2021-04-11 10:52 | PDOC ---
PROGRESS NOTES Date of Service: DATE: 04/11/21 TIME: 10:50 Chief Complaint Chief Complaint impression NSTEMI - cardiology consulted, trend troponins Severe systolic CHF - EF 10-15%, seen at [facility] previously was advised to follow- up in regardless of how well she got along with her geographic area intelligence officer for AICD placement ECHO HERE systolic function is severely impaired. Ejection Fraction is 25-30%. global hypokinesis of the left ventricle. mild concentric left ventricular hypertrophy. Doppler and Color Flow revealed no significant aortic regurgitation. Acute COPD - nebs prn Elevated BNP - due to acute CHF exacerbation DM2 - Hyperglycemia, a1c 11.6 due to newly diagnosed diabetes. Sliding scale insulin, lantus, add tradjenta, outpatient should be on jardiance given severity of CHF HTN - cont home medications Morbid obesity - needs HX meth abuse, recurrent severe Plan: Morphine, nitroglycerin as needed Will obtain limited echo Patient denies any prior diagnosis of DM2. Provide basal/prandial insulin; Resume home medication plan=== FEN - Cardiac diet PPX - Lovenox FULL CODE Dispo - inpatient for above D/W RN If compliance/followup is established and patient refrains from recreational drug use, consider outpatient AICD implantation for primary prevention of SCD. Follow up in cardiology office as arranged D/W JUAN CARLOS BY PHONE D/C TODAY 04-11 SNORES at night may have SOFY , CLIFFK HS OXIMETRY STUDY Advance Care Planning: Total time spent [id number] with patient 16 minutes in discussion with goals of care, comfort care, end-of-life care, pain management, code status; patient names her boyfriend (Kylah Saleem) as surrogate decision-maker. History of Present Illness History of Present Illness Ms Laguerre is a 45-year-old female with past medical history CHF, COPD, HTN, who presents to the ED with complaints of shortness of breath for the past 2 days. She reports associated chest heaviness and wheezing. She treated herself with her home albuterol and breathing treatment without significant improvement. Upon arrival in the ED she received Decadron 10 mg IV and duo nebulizer with improvement in her shortness of breath, wheezing, and chest heaviness. Upon chart review, she had a left heart cath and 05/03/2016 that showed severe LV systolic dysfunction, EF 15-20%; no significant obstructive coronary artery disease. She was recommended aggressive medical therapy and reassessment of EF in 3 months. A repeat repeat echocardiogram on 11/13/2016 showed EF 15-20% with severe global hypokinesis. Initial lab work in the ED showed troponin 0.029, BNP 881, CBG 423, K 3.4, Na 134. Due to concerns for PE, CTA of chest was obtained that showed no evidence of PE. Of note, patient is somewhat of a poor historian in regards to her medication complaints. In review of her current medications she has multiple contraindication medications including BECKY-I and ARB's together. She states that she was scheduled for an AICD to be placed at , but this was postponed due to COVID-19. She has not followed up at because she states she did not like her geographic area intelligence officer there. Due to her significant cardiac risk factors admitted patient for further monitoring. hx meth abuse and severe noncompliance 04/08: Still short of breath no further chest pain. Troponin is climbing up greater than 1. Glucose over 400. Note she has no prior doses diagnosed diabetes. A1c > 11 Shortness of breath improved a little no chest pain. Troponin down below 1. Glucose less than 200 now. Potassium 3.1 today. Vitals Vitals Vital Signs Date Time Temp Pulse Resp B/P (MAP) Pulse Ox O2 Delivery O2 Flow Rate FiO2 04/11/21 08:34 77 124/70 04/11/21 08:00 Room Air 04/11/21 07:00 98.6 16 94 98.6 Physical Exam General: Alert, Oriented X3, Cooperative, No acute distress Heart: Regular rate, Normal S1, Normal S2 Lungs: Wheezing Abdomen: Normal bowel sounds, Soft, No tenderness Extremities: No cyanosis Skin: No significant lesion Labs LABS Laboratory Tests Test 04/10/21 11:20 04/10/21 16:23 04/10/21 20:55 04/11/21 07:05 Glucose (Fingerstick) 166 mg/dL (70-99) 210 mg/dL (70-99) 194 mg/dL (70-99) White Blood Count 9.4 x10^3/uL (4.0-11.0) Red Blood Count 4.58 x10^6/uL (3.50-5.40) Hemoglobin 14.2 g/dL (12.0-15.5) Hematocrit 41.9 % (36.0-47.0) Mean Corpuscular Volume 91 fL (79-100) Mean Corpuscular Hemoglobin 31 pg (25-35) Mean Corpuscular Hemoglobin Concent 34 g/dL (31-37) Red Cell Distribution Width 14.4 % (11.5-14.5) Platelet Count 214 x10^3/uL (140-400) Neutrophils (%) (Auto) 69 % (31-73) Lymphocytes (%) (Auto) 20 % (24-48) Monocytes (%) (Auto) 10 % (0-9) Eosinophils (%) (Auto) 1 % (0-3) Basophils (%) (Auto) 0 % (0-3) Neutrophils # (Auto) 6.5 x10^3/uL (1.8-7.7) Lymphocytes # (Auto) 1.9 x10^3/uL (1.0-4.8) Monocytes # (Auto) 1.0 x10^3/uL (0.0-1.1) Eosinophils # (Auto) 0.1 x10^3/uL (0.0-0.7) Basophils # (Auto) 0.0 x10^3/uL (0.0-0.2) Sodium Level 138 mmol/L (136-145) Potassium Level 3.6 mmol/L (3.5-5.1) Chloride Level 101 mmol/L (98-107) Carbon Dioxide Level 29 mmol/L (21-32) Anion Gap 8 (6-14) Blood Urea Nitrogen 17 mg/dL (7-20) Creatinine 0.9 mg/dL (0.6-1.0) Estimated GFR (Cockcroft-Gault) 67.1 Glucose Level 164 mg/dL (70-99) Calcium Level 9.1 mg/dL (8.5-10.1) Test 04/11/21 07:29 Glucose (Fingerstick) 170 mg/dL (70-99) Assessment and Plan Assessmemt and Plan Problems Medical Problems: (1) Chest pain Status: Acute (2) Diabetes mellitus, new onset Status: Acute (3) Dyspnea Status: Acute Comment Review of Relevant I have reviewed the following items javed (where applicable) has been applied. Labs Laboratory Tests Test 5/30/21 12:09 04/09/21 16:52 04/09/21 21:11 04/10/21 07:24 Glucose (Fingerstick) 249 mg/dL (70-99) 168 mg/dL (70-99) 189 mg/dL (70-99) 150 mg/dL (70-99) Test 04/10/21 07:35 04/10/21 11:20 04/10/21 16:23 04/10/21 20:55 Sodium Level 140 mmol/L (136-145) Potassium Level 3.3 mmol/L (3.5-5.1) Chloride Level 103 mmol/L (98-107) Carbon Dioxide Level 30 mmol/L (21-32) Anion Gap 7 (6-14) Blood Urea Nitrogen 26 mg/dL (7-20) Creatinine 0.9 mg/dL (0.6-1.0) Estimated GFR (Cockcroft-Gault) 67.1 Glucose Level 145 mg/dL (70-99) Calcium Level 8.9 mg/dL (8.5-10.1) Glucose (Fingerstick) 166 mg/dL (70-99) 210 mg/dL (70-99) 194 mg/dL (70-99) Test 04/11/21 07:05 04/11/21 07:29 White Blood Count 9.4 x10^3/uL (4.0-11.0) Red Blood Count 4.58 x10^6/uL (3.50-5.40) Hemoglobin 14.2 g/dL (12.0-15.5) Hematocrit 41.9 % (36.0-47.0) Mean Corpuscular Volume 91 fL (79-100) Mean Corpuscular Hemoglobin 31 pg (25-35) Mean Corpuscular Hemoglobin Concent 34 g/dL (31-37) Red Cell Distribution Width 14.4 % (11.5-14.5) Platelet Count 214 x10^3/uL (140-400) Neutrophils (%) (Auto) 69 % (31-73) Lymphocytes (%) (Auto) 20 % (24-48) Monocytes (%) (Auto) 10 % (0-9) Eosinophils (%) (Auto) 1 % (0-3) Basophils (%) (Auto) 0 % (0-3) Neutrophils # (Auto) 6.5 x10^3/uL (1.8-7.7) Lymphocytes # (Auto) 1.9 x10^3/uL (1.0-4.8) Monocytes # (Auto) 1.0 x10^3/uL (0.0-1.1) Eosinophils # (Auto) 0.1 x10^3/uL (0.0-0.7) Basophils # (Auto) 0.0 x10^3/uL (0.0-0.2) Sodium Level 138 mmol/L (136-145) Potassium Level 3.6 mmol/L (3.5-5.1) Chloride Level 101 mmol/L (98-107) Carbon Dioxide Level 29 mmol/L (21-32) Anion Gap 8 (6-14) Blood Urea Nitrogen 17 mg/dL (7-20) Creatinine 0.9 mg/dL (0.6-1.0) Estimated GFR (Cockcroft-Gault) 67.1 Glucose Level 164 mg/dL (70-99) Calcium Level 9.1 mg/dL (8.5-10.1) Glucose (Fingerstick) 170 mg/dL (70-99) Laboratory Tests Test 04/10/21 11:20 04/10/21 16:23 04/10/21 20:55 04/11/21 07:05 Glucose (Fingerstick) 166 mg/dL (70-99) 210 mg/dL (70-99) 194 mg/dL (70-99) White Blood Count 9.4 x10^3/uL (4.0-11.0) Red Blood Count 4.58 x10^6/uL (3.50-5.40) Hemoglobin 14.2 g/dL (12.0-15.5) Hematocrit 41.9 % (36.0-47.0) Mean Corpuscular Volume 91 fL (79-100) Mean Corpuscular Hemoglobin 31 pg (25-35) Mean Corpuscular Hemoglobin Concent 34 g/dL (31-37) Red Cell Distribution Width 14.4 % (11.5-14.5) Platelet Count 214 x10^3/uL (140-400) Neutrophils (%) (Auto) 69 % (31-73) Lymphocytes (%) (Auto) 20 % (24-48) Monocytes (%) (Auto) 10 % (0-9) Eosinophils (%) (Auto) 1 % (0-3) Basophils (%) (Auto) 0 % (0-3) Neutrophils # (Auto) 6.5 x10^3/uL (1.8-7.7) Lymphocytes # (Auto) 1.9 x10^3/uL (1.0-4.8) Monocytes # (Auto) 1.0 x10^3/uL (0.0-1.1) Eosinophils # (Auto) 0.1 x10^3/uL (0.0-0.7) Basophils # (Auto) 0.0 x10^3/uL (0.0-0.2) Sodium Level 138 mmol/L (136-145) Potassium Level 3.6 mmol/L (3.5-5.1) Chloride Level 101 mmol/L (98-107) Carbon Dioxide Level 29 mmol/L (21-32) Anion Gap 8 (6-14) Blood Urea Nitrogen 17 mg/dL (7-20) Creatinine 0.9 mg/dL (0.6-1.0) Estimated GFR (Cockcroft-Gault) 67.1 Glucose Level 164 mg/dL (70-99) Calcium Level 9.1 mg/dL (8.5-10.1) Test 04/11/21 07:29 Glucose (Fingerstick) 170 mg/dL (70-99) Medications Current Medications Albuterol/ Ipratropium (Duoneb) 9 ml 1X ONCE NEB Last administered on 04/07/21at 09:57; Start 04/07/21 at 09:45; Stop 04/07/21 at 09:46; Status DC Dexamethasone (Decadron) 10 mg 1X ONCE PO Last administered on 04/07/21at 09:46; Start 04/07/21 at 10:00; Stop 04/07/21 at 10:01; Status DC Iohexol (Omnipaque 350 Mg/ml) 100 ml 1X ONCE IV Last administered on 04/07/21at 12:37; Start 04/07/21 at 13:00; Stop 04/07/21 at 13:01; Status DC Info (CONTRAST GIVEN -- Rx MONITORING) 1 each PRN DAILY PRN MC SEE COMMENTS; Start 04/07/21 at 12:30; Stop 04/09/21 at 12:29; Status DC Insulin Human Regular (HumuLIN R VIAL) 10 unit 1X ONCE IV Last administered on 04/07/21at 15:40; Start 04/07/21 at 15:15; Stop 04/07/21 at 15:16; Status DC Insulin Glargine (Lantus Syringe) 30 unit QHS SQ Last administered on 04/07/21at 20:56; Start 04/07/21 at 21:00; Stop 04/08/21 at 06:32; Status DC Insulin Human Lispro (HumaLOG) 10 units TIDWMEALS SQ Last administered on 04/07/21at 17:10; Start 04/07/21 at 17:00; Stop 04/08/21 at 06:33; Status DC Dextrose (Dextrose 50%-Water Syringe) 12.5 gm PRN Q15MIN PRN IV SEE COMMENTS; Start 04/07/21 at 15:45; Stop 04/08/21 at 11:58; Status DC Dextrose (Iv Dextrose 5%) 250 ml PRN Q15MIN PRN IV SEE COMMENTS; Start 04/07/21 at 15:45 Ondansetron HCl (Zofran) 4 mg PRN Q6HRS PRN IVP NAUSEA/VOMITING; Start 04/07/21 at 16:00 Al Hydroxide/Mg Hydroxide (Mylanta Plus Xs) 30 ml PRN Q3HRS PRN PO HEARTBURN / GAS; Start 04/07/21 at 16:00 Calcium Carbonate/ Glycine (Tums) 500 mg PRN Q3HRS PRN PO UPSET STOMACH; Start 04/07/21 at 16:00 Zolpidem Tartrate (Ambien) 5 mg PRN QHS PRN PO INSOMNIA, MAY REPEAT IN 1HR Last administered on 04/10/21at 21:23; Start 04/07/21 at 16:00 Acetaminophen/ Hydrocodone Bitart (Lortab 5/325) 1 tab PRN Q4HRS PRN PO MILD PAIN 1-3 Last administered on 04/09/21at 21:26; Start 04/07/21 at 16:00 Acetaminophen (Tylenol) 650 mg PRN Q6HRS PRN PO Headaches, Temp > 101.5F; Start 04/07/21 at 16:00 Magnesium Hydroxide (Milk Of Magnesia) 2,400 mg PRN Q12HR PRN PO CONSTIPATION; Start 04/07/21 at 16:00 Bisacodyl (Dulcolax Supp) 10 mg PRN DAILY PRN [place] CONSTIPATION; Start 04/07/21 at 16:00 Enoxaparin Sodium (Lovenox 60mg Syringe) 60 mg Q12HR SQ Last administered on 04/08/21at 08:29; Start 04/07/21 at 21:00; Stop 04/08/21 at 10:01; Status DC Morphine Sulfate (Morphine Sulfate) 4 mg PRN Q2HR PRN IV PAIN; Start 04/07/21 at 16:00 Nitroglycerin (Nitrostat) 0.4 mg PRN Q5MIN PRN SL CHEST PAIN; Start 04/07/21 at 16:00 Aspirin (Ecotrin) 81 mg DAILYWBKFT PO Last administered on 04/11/21at 08:33; Start 04/08/21 at 08:00 Carvedilol (Coreg) 6.25 mg BIDWMEALS PO Last administered on 04/11/21at 08:33; Start 04/08/21 at 08:00 Furosemide (Lasix) 40 mg DAILY PO Last administered on 04/11/21at 08:33; Start 04/08/21 at 09:00 Lisinopril (Prinivil) 5 mg DAILY PO Last administered on 04/11/21at 08:34; Start 04/08/21 at 09:00 Insulin Human Lispro (HumaLOG) 12 units 1X ONCE SQ Last administered on 04/07/21at 22:03; Start 04/07/21 at 21:45; Stop 04/07/21 at 21:46; Status DC Insulin Glargine (Lantus Syringe) 20 unit BID SQ Last administered on 04/08/21at 21:37; Start 04/08/21 at 09:00; Stop 04/09/21 at 07:59; Status DC Insulin Human Lispro (HumaLOG) 12 units TIDWMEALS SQ Last administered on 04/10/21at 17:02; Start 04/08/21 at 08:00 Enoxaparin Sodium (Lovenox 40mg Syringe) 40 mg Q12HR SQ Last administered on 04/10/21at 21:23; Start 04/08/21 at 21:00 Insulin Human Lispro (HumaLOG) 0-9 UNITS TIDWMEALS SQ Last administered on 04/10/21at 17:01; Start 04/08/21 at 12:00 Dextrose (Dextrose 50%-Water Syringe) 12.5 gm PRN Q15MIN PRN IV SEE COMMENTS; Start 04/08/21 at 12:00 Insulin Human Lispro (HumaLOG) 25 units 1X SQ Last administered on 04/08/21at 12:22; Start 04/08/21 at 12:30 Linagliptin (Tradjenta) 5 mg DAILY PO Last administered on 04/11/21at 08:35; Start 04/08/21 at 13:00 Potassium Chloride (Klor-Con) 40 meq 1X ONCE PO Last administered on 04/09/21at 08:53; Start 04/09/21 at 08:00; Stop 04/09/21 at 08:01; Status DC Potassium Chloride/Water 100 ml @ 100 mls/hr Q1H IV Last administered on 04/09/21at 11:15; Start 04/09/21 at 08:30; Stop 04/09/21 at 10:29; Status DC Insulin Glargine (Lantus Syringe) 35 unit QHS SQ Last administered on 04/10/21at 21:28; Start 04/09/21 at 21:00 Metformin HCl (Glucophage) 500 mg BIDWMEALS PO ; Start 04/09/21 at 17:00; Stop 04/09/21 at 11:32; Status DC Potassium Chloride (Klor-Con) 20 meq DAILYWBKFT PO Last administered on 04/11/21at 08:34; Start 04/10/21 at 08:00 Metformin HCl (Glucophage) 500 mg BIDWMEALS PO Last administered on 04/11/21at 08:34; Start 04/09/21 at 11:30 Potassium Chloride (Klor-Con) 40 meq 1X ONCE PO ; Start 04/10/21 at 13:00; Stop 04/10/21 at 13:01; Status DC Potassium Chloride (Klor-Con) 20 meq DAILYWBKFT PO ; Start 04/11/21 at 08:00; Status UNV Atorvastatin Calcium (Lipitor) 10 mg QHS PO ; Start 04/11/21 at 21:00 Active Scripts Active Admelog (Insulin Lispro) 100 Unit/1 Ml Vial 0 Units SQ TIDWMEALS 30 Days Prednisone 20 Mg Tablet 60 Mg PO DAILY 7 Days Culturelle (Lactobacillus Rhamnosus Gg) 1 Each Cap.sprink 1 Cap PO BID 30 Days Combivent Respimat Inhal (Ipratropium/Albuterol Sulfate) 4 Gm Aer.w.adap 1 Puff INH Q4HRS W/A 30 Days Doxycycline Hyclate 100 Mg Tablet 100 Mg PO BID 10 Days Potassium 25 Meq Tablet Eff (Potassium Bicarbonate/Cit Ac) 25 Meq Tablet.eff 25 Meq PO DAILY 20 Days Lisinopril 2.5 Mg Tablet 2.5 Mg PO DAILY 30 Days Furosemide 40 Mg Tablet 40 Mg PO DAILY 30 Days Carvedilol (Carvedilol) 6.25 Mg Tablet 6.25 Mg PO BIDWMEALS 30 Days Benzonatate 100 Mg Capsule 100 Mg PO [id number] Aspirin Ec (Aspirin) 81 Mg Tablet.dr 81 Mg PO DAILYWBKFT Reported [quvar inhaler] Proair Hfa Inhaler (Albuterol Sulfate) 8.5 Gm Hfa.aer.ad 2 Puff IH PRN Q4-6HRS PRN Vitals/I & O Vital Sign - Last 24 Hours 04/10/21 04/10/21 04/10/21 04/10/21 11:04 15:02 16:59 19:40 Temp 98.5 98.8 97.6 98.5 98.8 97.6 Pulse 71 74 96 79 Resp 16 18 18 B/P (MAP) 105/58 (74) 99/59 (72) 111/69 117/68 (84) Pulse Ox 94 96 98 O2 Delivery Room Air Room Air Room Air 04/10/21 04/10/21 04/11/21 04/11/21 20:24 23:15 03:45 07:00 Temp 98.3 98.6 98.6 98.3 98.6 98.6 Pulse 63 75 74 Resp 18 18 16 B/P (MAP) 125/60 (81) 105/67 (80) 124/70 (88) Pulse Ox 97 94 94 O2 Delivery Room Air Room Air Room Air Room Air 04/11/21 04/11/21 04/11/21 08:00 08:33 08:34 Pulse 77 77 B/P (MAP) 124/70 124/70 O2 Delivery Room Air Intake and Output 04/10/21 04/10/21 04/11/21 15:00 23:00 07:00 Intake Total 720 ml 950 ml 400 ml Balance 720 ml 950 ml 400 ml Justicifation of Admission Dx: Justifications for Admission: Justification of Admission Dx: Yes Acute COPD Exacerbation: Acute COPD Exacerbation ANN BARNES MD Apr 11, 2021 10:52
[2021-04-11 11:00] VITALS: BP 109/66
--- NOTE | 2021-04-11 11:15 | NUR ---
PT REMOVED TELEMETRY AND WAS GETTING DRESSED - " I WANT TO GO HOME". I ASKED HER TO WAIT UNTIL DR BARNES COULD DISCHARGE HER APPROPRIATELY. PT AGREED. DR BARNES AGREED.
--- NOTE | 2021-04-11 11:17 | PDOC3 ---
Discharge Summary Date of Admission: April 07, 2021 Date of Discharge: Apr 11, 2021 Follow-Up: 3-5 days Admitting Diagnosis comment: HOSPITAL COURSE HPI History of Present Illness History of Present Illness Ms Laguerre is a 45-year-old female with past medical history CHF, COPD, HTN, who presents to the ED with complaints of shortness of breath for the past 2 days. She reports associated chest heaviness and wheezing. She treated herself with her home albuterol and breathing treatment without significant improvement. Upon arrival in the ED she received Decadron 10 mg IV and duo nebulizer with improvement in her shortness of breath, wheezing, and chest heaviness. Upon chart review, she had a left heart cath and 05/03/2016 that showed severe LV systolic dysfunction, EF 15-20%; no significant obstructive coronary artery disease. She was recommended aggressive medical therapy and reassessment of EF in 3 months. A repeat repeat echocardiogram on 11/13/2016 showed EF 15-20% with severe global hypokinesis. Initial lab work in the ED showed troponin 0.029, BNP 881, CBG 423, K 3.4, Na 134. Due to concerns for PE, CTA of chest was obtained that showed no evidence of PE. Of note, patient is somewhat of a poor historian in regards to her medication complaints. In review of her current medications she has multiple contraindication medications including BECKY-I and ARB's together. She states that she was scheduled for an AICD to be placed at , but this was postponed due to COVID-19. She has not followed up at because she states she did not like her raveler there. Due to her significant cardiac risk factors admitted patient for further monitoring. hx meth abuse and severe noncompliance COMPLICATIONS METH ABUSE d/c meds SEE MAR d/c condition fair , prone to sudden cardiac due to meth abuse and cardiomyopathy consult Cardiology discharge dx Chief Complaint impression NSTEMI - cardiology consulted, trend troponins Severe systolic CHF - EF 10-15%, seen at [facility] previously was advised to follow- up in regardless of how well she got along with her raveler for AICD placement ECHO HERE systolic function is severely impaired. Ejection Fraction is 25-30%. global hypokinesis of the left ventricle. mild concentric left ventricular hypertrophy. Doppler and Color Flow revealed no significant aortic regurgitation. Acute COPD - nebs prn Elevated BNP - due to acute CHF exacerbation DM2 - Hyperglycemia, a1c 11.6 due to newly diagnosed diabetes. Sliding scale insulin, lantus, add tradjenta, outpatient should be on jardiance given severity of CHF HTN - cont home medications Morbid obesity - needs HX meth abuse, recurrent severe Plan: Morphine, nitroglycerin as needed Will obtain limited echo Patient denies any prior diagnosis of DM2. Provide basal/prandial insulin; Resume home medication plan=== FEN - Cardiac diet PPX - Lovenox FULL CODE Dispo - inpatient for above D/W RN If compliance/followup is established and patient refrains from recreational drug use, consider outpatient AICD implantation for primary prevention of SCD. Follow up in cardiology office as arranged D/W JUAN CARLOS BY PHONE D/C TODAY 04-11 D/C PLANNING 36 MIN SNORES at night may have SOFY , CHK HS OXIMETRY STUDY Advance Care Planning: Total time spent [id number] with patient 16 minutes in discussion with goals of care, comfort care, end-of-life care, pain management, code status; patient names her boyfriend (Kylah Saleem) as surrogate decision-maker. History of Present Illness History of Present Illness Ms Laguerre is a 45-year-old female with past medical history CHF, COPD, HTN, who presents to the ED with complaints of shortness of breath for the past 2 days. She reports associated chest heaviness and wheezing. She treated herself with her home albuterol and breathing treatment without significant improvement. Upon arrival in the ED she received Decadron 10 mg IV and duo nebulizer with improvement in her shortness of breath, wheezing, and chest heaviness. Upon chart review, she had a left heart cath and 05/03/2016 that showed severe LV systolic dysfunction, EF 15-20%; no significant obstructive coronary artery disease. She was recommended aggressive medical therapy and reassessment of EF in 3 months. A repeat repeat echocardiogram on 11/13/2016 showed EF 15-20% with severe global hypokinesis. Initial lab work in the ED showed troponin 0.029, BNP 881, CBG 423, K 3.4, Na 134. Due to concerns for PE, CTA of chest was obtained that showed no evidence of PE. Of note, patient is somewhat of a poor historian in regards to her medication complaints. In review of her current medications she has multiple contraindication medications including BECKY-I and ARB's together. She states that she was scheduled for an AICD to be placed at , but this was postponed due to COVID-19. She has not followed up at because she states she did not like her raveler there. Due to her significant cardiac risk factors admitted patient for further monitoring. hx meth abuse and severe noncompliance 04/08: Still short of breath no further chest pain. Troponin is climbing up greater than 1. Glucose over 400. Note she has no prior doses diagnosed diabetes. A1c > 11 Shortness of breath improved a little no chest pain. Troponin down below 1. Glucose less than 200 now. Potassium 3.1 today. Vitals Vitals Vital Signs Date Time Temp Pulse Resp B/P (MAP) Pulse Ox O2 Delivery O2 Flow Rate FiO2 04/11/21 08:34 77 124/70 04/11/21 08:00 Room Air 04/11/21 07:00 98.6 16 94 98.6 Physical Exam General: Alert, Oriented X3, Cooperative, No acute distress Heart: Regular rate, Normal S1, Normal S2 Lungs: Wheezing Abdomen: Normal bowel sounds, Soft, No tenderness Extremities: No cyanosis Skin: No significant lesion FINAL DIAGNOSIS Problems Medical Problems: (1) Chest pain Status: Acute (2) Diabetes mellitus, new onset Status: Acute (3) Dyspnea Status: Acute Brief Hospital Course Ms. Laguerre is a 45 old [sex] who presented with [ DYSPNEA, CHF] CONDITION AT DISCHARGE: Comment (GUARDED) Discharge Medications Current Medications Albuterol/ Ipratropium (Duoneb) 9 ml 1X ONCE NEB Last administered on 04/07/21at 09:57; Start 04/07/21 at 09:45; Stop 04/07/21 at 09:46; Status DC Dexamethasone (Decadron) 10 mg 1X ONCE PO Last administered on 04/07/21at 09:46; Start 04/07/21 at 10:00; Stop 04/07/21 at 10:01; Status DC Iohexol (Omnipaque 350 Mg/ml) 100 ml 1X ONCE IV Last administered on 04/07/21at 12:37; Start 04/07/21 at 13:00; Stop 04/07/21 at 13:01; Status DC Info (CONTRAST GIVEN -- Rx MONITORING) 1 each PRN DAILY PRN MC SEE COMMENTS; Start 04/07/21 at 12:30; Stop 04/09/21 at 12:29; Status DC Insulin Human Regular (HumuLIN R VIAL) 10 unit 1X ONCE IV Last administered on 04/07/21at 15:40; Start 04/07/21 at 15:15; Stop 04/07/21 at 15:16; Status DC Insulin Glargine (Lantus Syringe) 30 unit QHS SQ Last administered on 04/07/21at 20:56; Start 04/07/21 at 21:00; Stop 04/08/21 at 06:32; Status DC Insulin Human Lispro (HumaLOG) 10 units TIDWMEALS SQ Last administered on 04/07/21at 17:10; Start 04/07/21 at 17:00; Stop 04/08/21 at 06:33; Status DC Dextrose (Dextrose 50%-Water Syringe) 12.5 gm PRN Q15MIN PRN IV SEE COMMENTS; Start 04/07/21 at 15:45; Stop 04/08/21 at 11:58; Status DC Dextrose (Iv Dextrose 5%) 250 ml PRN Q15MIN PRN IV SEE COMMENTS; Start 04/07/21 at 15:45 Ondansetron HCl (Zofran) 4 mg PRN Q6HRS PRN IVP NAUSEA/VOMITING; Start 04/07/21 at 16:00 Al Hydroxide/Mg Hydroxide (Mylanta Plus Xs) 30 ml PRN Q3HRS PRN PO HEARTBURN / GAS; Start 04/07/21 at 16:00 Calcium Carbonate/ Glycine (Tums) 500 mg PRN Q3HRS PRN PO UPSET STOMACH; Start 04/07/21 at 16:00 Zolpidem Tartrate (Ambien) 5 mg PRN QHS PRN PO INSOMNIA, MAY REPEAT IN 1HR Last administered on 04/10/21at 21:23; Start 04/07/21 at 16:00 Acetaminophen/ Hydrocodone Bitart (Lortab 5/325) 1 tab PRN Q4HRS PRN PO MILD PAIN 1-3 Last administered on 04/09/21at 21:26; Start 04/07/21 at 16:00 Acetaminophen (Tylenol) 650 mg PRN Q6HRS PRN PO Headaches, Temp > 101.5F; Start 04/07/21 at 16:00 Magnesium Hydroxide (Milk Of Magnesia) 2,400 mg PRN Q12HR PRN PO CONSTIPATION; Start 04/07/21 at 16:00 Bisacodyl (Dulcolax Supp) 10 mg PRN DAILY PRN [place] CONSTIPATION; Start 04/07/21 at 16:00 Enoxaparin Sodium (Lovenox 60mg Syringe) 60 mg Q12HR SQ Last administered on 04/08/21at 08:29; Start 04/07/21 at 21:00; Stop 04/08/21 at 10:01; Status DC Morphine Sulfate (Morphine Sulfate) 4 mg PRN Q2HR PRN IV PAIN; Start 04/07/21 at 16:00 Nitroglycerin (Nitrostat) 0.4 mg PRN Q5MIN PRN SL CHEST PAIN; Start 04/07/21 at 16:00 Aspirin (Ecotrin) 81 mg DAILYWBKFT PO Last administered on 04/11/21at 08:33; Start 04/08/21 at 08:00 Carvedilol (Coreg) 6.25 mg BIDWMEALS PO Last administered on 04/11/21at 08:33; Start 04/08/21 at 08:00 Furosemide (Lasix) 40 mg DAILY PO Last administered on 04/11/21at 08:33; Start 04/08/21 at 09:00 Lisinopril (Prinivil) 5 mg DAILY PO Last administered on 04/11/21at 08:34; Start 04/08/21 at 09:00 Insulin Human Lispro (HumaLOG) 12 units 1X ONCE SQ Last administered on 04/07/21at 22:03; Start 04/07/21 at 21:45; Stop 04/07/21 at 21:46; Status DC Insulin Glargine (Lantus Syringe) 20 unit BID SQ Last administered on 04/08/21at 21:37; Start 04/08/21 at 09:00; Stop 04/09/21 at 07:59; Status DC Insulin Human Lispro (HumaLOG) 12 units TIDWMEALS SQ Last administered on 04/10/21at 17:02; Start 04/08/21 at 08:00 Enoxaparin Sodium (Lovenox 40mg Syringe) 40 mg Q12HR SQ Last administered on 04/10/21at 21:23; Start 04/08/21 at 21:00 Insulin Human Lispro (HumaLOG) 0-9 UNITS TIDWMEALS SQ Last administered on 04/10/21at 17:01; Start 04/08/21 at 12:00 Dextrose (Dextrose 50%-Water Syringe) 12.5 gm PRN Q15MIN PRN IV SEE COMMENTS; Start 04/08/21 at 12:00 Insulin Human Lispro (HumaLOG) 25 units 1X SQ Last administered on 04/08/21at 12:22; Start 04/08/21 at 12:30 Linagliptin (Tradjenta) 5 mg DAILY PO Last administered on 04/11/21at 08:35; Start 04/08/21 at 13:00 Potassium Chloride (Klor-Con) 40 meq 1X ONCE PO Last administered on 04/09/21at 08:53; Start 04/09/21 at 08:00; Stop 04/09/21 at 08:01; Status DC Potassium Chloride/Water 100 ml @ 100 mls/hr Q1H IV Last administered on 04/09/21at 11:15; Start 04/09/21 at 08:30; Stop 04/09/21 at 10:29; Status DC Insulin Glargine (Lantus Syringe) 35 unit QHS SQ Last administered on 04/10/21at 21:28; Start 04/09/21 at 21:00 Metformin HCl (Glucophage) 500 mg BIDWMEALS PO ; Start 04/09/21 at 17:00; Stop 04/09/21 at 11:32; Status DC Potassium Chloride (Klor-Con) 20 meq DAILYWBKFT PO Last administered on 04/11/21at 08:34; Start 04/10/21 at 08:00 Metformin HCl (Glucophage) 500 mg BIDWMEALS PO Last administered on 04/11/21at 08:34; Start 04/09/21 at 11:30 Potassium Chloride (Klor-Con) 40 meq 1X ONCE PO ; Start 04/10/21 at 13:00; Stop 04/10/21 at 13:01; Status DC Potassium Chloride (Klor-Con) 20 meq DAILYWBKFT PO ; Start 04/11/21 at 08:00; Status UNV Atorvastatin Calcium (Lipitor) 10 mg QHS PO ; Start 04/11/21 at 21:00 Active Scripts Active Admelog (Insulin Lispro) 100 Unit/1 Ml Vial 0 Units SQ TIDWMEALS 30 Days Prednisone 20 Mg Tablet 60 Mg PO DAILY 7 Days Culturelle (Lactobacillus Rhamnosus Gg) 1 Each Cap.sprink 1 Cap PO BID 30 Days Combivent Respimat Inhal (Ipratropium/Albuterol Sulfate) 4 Gm Aer.w.adap 1 Puff INH Q4HRS W/A 30 Days Doxycycline Hyclate 100 Mg Tablet 100 Mg PO BID 10 Days Potassium 25 Meq Tablet Eff (Potassium Bicarbonate/Cit Ac) 25 Meq Tablet.eff 25 Meq PO DAILY 20 Days Lisinopril 2.5 Mg Tablet 2.5 Mg PO DAILY 30 Days Furosemide 40 Mg Tablet 40 Mg PO DAILY 30 Days Carvedilol (Carvedilol) 6.25 Mg Tablet 6.25 Mg PO BIDWMEALS 30 Days Benzonatate 100 Mg Capsule 100 Mg PO [id number] Aspirin Ec (Aspirin) 81 Mg Tablet.dr 81 Mg PO DAILYWBKFT Reported [quvar inhaler] Proair Hfa Inhaler (Albuterol Sulfate) 8.5 Gm Hfa.aer.ad 2 Puff IH PRN Q4-6HRS PRN Vital Signs Vital Signs Date Time Temp Pulse Resp B/P (MAP) Pulse Ox O2 Delivery O2 Flow Rate FiO2 04/11/21 08:34 77 124/70 04/11/21 08:00 Room Air 04/11/21 07:00 98.6 16 94 98.6 Labs Laboratory Tests Test 04/09/21 12:09 04/09/21 16:52 04/09/21 21:11 04/10/21 07:24 Glucose (Fingerstick) 249 mg/dL (70-99) 168 mg/dL (70-99) 189 mg/dL (70-99) 150 mg/dL (70-99) Test 04/10/21 07:35 04/10/21 11:20 04/10/21 16:23 04/10/21 20:55 Sodium Level 140 mmol/L (136-145) Potassium Level 3.3 mmol/L (3.5-5.1) Chloride Level 103 mmol/L (98-107) Carbon Dioxide Level 30 mmol/L (21-32) Anion Gap 7 (6-14) Blood Urea Nitrogen 26 mg/dL (7-20) Creatinine 0.9 mg/dL (0.6-1.0) Estimated GFR (Cockcroft-Gault) 67.1 Glucose Level 145 mg/dL (70-99) Calcium Level 8.9 mg/dL (8.5-10.1) Glucose (Fingerstick) 166 mg/dL (70-99) 210 mg/dL (70-99) 194 mg/dL (70-99) Test 04/11/21 07:05 04/11/21 07:29 White Blood Count 9.4 x10^3/uL (4.0-11.0) Red Blood Count 4.58 x10^6/uL (3.50-5.40) Hemoglobin 14.2 g/dL (12.0-15.5) Hematocrit 41.9 % (36.0-47.0) Mean Corpuscular Volume 91 fL (79-100) Mean Corpuscular Hemoglobin 31 pg (25-35) Mean Corpuscular Hemoglobin Concent 34 g/dL (31-37) Red Cell Distribution Width 14.4 % (11.5-14.5) Platelet Count 214 x10^3/uL (140-400) Neutrophils (%) (Auto) 69 % (31-73) Lymphocytes (%) (Auto) 20 % (24-48) Monocytes (%) (Auto) 10 % (0-9) Eosinophils (%) (Auto) 1 % (0-3) Basophils (%) (Auto) 0 % (0-3) Neutrophils # (Auto) 6.5 x10^3/uL (1.8-7.7) Lymphocytes # (Auto) 1.9 x10^3/uL (1.0-4.8) Monocytes # (Auto) 1.0 x10^3/uL (0.0-1.1) Eosinophils # (Auto) 0.1 x10^3/uL (0.0-0.7) Basophils # (Auto) 0.0 x10^3/uL (0.0-0.2) Sodium Level 138 mmol/L (136-145) Potassium Level 3.6 mmol/L (3.5-5.1) Chloride Level 101 mmol/L (98-107) Carbon Dioxide Level 29 mmol/L (21-32) Anion Gap 8 (6-14) Blood Urea Nitrogen 17 mg/dL (7-20) Creatinine 0.9 mg/dL (0.6-1.0) Estimated GFR (Cockcroft-Gault) 67.1 Glucose Level 164 mg/dL (70-99) Calcium Level 9.1 mg/dL (8.5-10.1) Glucose (Fingerstick) 170 mg/dL (70-99) Laboratory Tests Test 04/10/21 11:20 04/10/21 16:23 04/10/21 20:55 04/11/21 07:05 Glucose (Fingerstick) 166 mg/dL (70-99) 210 mg/dL (70-99) 194 mg/dL (70-99) White Blood Count 9.4 x10^3/uL (4.0-11.0) Red Blood Count 4.58 x10^6/uL (3.50-5.40) Hemoglobin 14.2 g/dL (12.0-15.5) Hematocrit 41.9 % (36.0-47.0) Mean Corpuscular Volume 91 fL (79-100) Mean Corpuscular Hemoglobin 31 pg (25-35) Mean Corpuscular Hemoglobin Concent 34 g/dL (31-37) Red Cell Distribution Width 14.4 % (11.5-14.5) Platelet Count 214 x10^3/uL (140-400) Neutrophils (%) (Auto) 69 % (31-73) Lymphocytes (%) (Auto) 20 % (24-48) Monocytes (%) (Auto) 10 % (0-9) Eosinophils (%) (Auto) 1 % (0-3) Basophils (%) (Auto) 0 % (0-3) Neutrophils # (Auto) 6.5 x10^3/uL (1.8-7.7) Lymphocytes # (Auto) 1.9 x10^3/uL (1.0-4.8) Monocytes # (Auto) 1.0 x10^3/uL (0.0-1.1) Eosinophils # (Auto) 0.1 x10^3/uL (0.0-0.7) Basophils # (Auto) 0.0 x10^3/uL (0.0-0.2) Sodium Level 138 mmol/L (136-145) Potassium Level 3.6 mmol/L (3.5-5.1) Chloride Level 101 mmol/L (98-107) Carbon Dioxide Level 29 mmol/L (21-32) Anion Gap 8 (6-14) Blood Urea Nitrogen 17 mg/dL (7-20) Creatinine 0.9 mg/dL (0.6-1.0) Estimated GFR (Cockcroft-Gault) 67.1 Glucose Level 164 mg/dL (70-99) Calcium Level 9.1 mg/dL (8.5-10.1) Test 04/11/21 07:29 Glucose (Fingerstick) 170 mg/dL (70-99) Allergies Allergies Coded Allergies Type Severity Reaction Last Updated Verified No Known Drug Allergies 07/29/15 No Disposition/Orders: D/C to Home Justicifation of Admission Dx: Justifications for Admission: Justification of Admission Dx: Yes Acute COPD Exacerbation: Acute COPD Exacerbation ANN BARNES MD Apr 11, 2021 11:17
[2021-04-11] MEDS ORDERED: LINA5TAB PO (11:21)
[2021-04-11] MEDS ORDERED: ATOR10TA60 PO (11:21)
[2021-04-11] MEDS ORDERED: LISI-517 PO (11:21)
[2021-04-11] MEDS ORDERED: METF500T PO (11:21)
[2021-04-11] MEDS ORDERED: INSU100V8 SQ (11:21)
--- NOTE | 2021-04-11 11:22 | DISCH ---
DISCHARGE INSTRUCTIONS Condition on Discharge Condition on Discharge: Guarded Activity After Discharge Activity Instructions for Disc: No restrictions Lifting Instructions after Dis: No heavy lifting, No pulling or pushing Driving Instructions after Dis: Do not drive, Do not drive today Weight Bearing Status after Di: Full weight bearing Diet after Discharge Diet after Discharge: Cardiac, Diabetic No Calorie Level Liquid Texture: Thin Liquid Checks after Discharge Checks after discharge: Check blood press - daily, Weigh Yourself Daily Contacting the DR. after DC Call your doctor for: If your condition worsens Follow-Up Follow up with: SEE CARDIOLOGY SOON DIRECTED, ATTEND CHEMICAL DEPENDENCY COUNSELING Treatment/Equipment after DC Adaptive Equipment Issued: None Discharge Respiratory Equipmen: Nebulizer ANN BARNES MD Apr 11, 2021 11:22
--- NOTE | 2021-04-11 11:49 | NUR ---
SS following for discharge planning. SS reviewed pt chart and discussed with pt RN. Pt is from home and is currently on room air. Discharge order on the chart for home with self care.
--- NOTE | 2021-04-11 11:55 | NUR ---
I WANTED TO EXPLAIN DIABETES AND INSULIN TO PT IN DETAIL BUT SHE WAS EAGER TO LEAVE. PT SAID, "I CAN READ THAT STUFF".
--- NOTE | 2021-04-11 12:00 | NUR ---
Discharge Note: CAREY FONTANEZ Discharge instructions and discharge home medications reviewed with Patient and a copy given. All questions have been answered and understanding verbalized. The following instructions and handouts were given: DM TYPE 2, CARDIOMYOPATHY, DM DIET Discontinued lines and drains: Peripheral IV intact. Patient discharged to Home or Self Care with Significant Other via Ambulated
[2021-04-11 12:11] LABS: CHOLESTEROL/HDL RATIO 4.3
[2021-04-11] MEDS ORDERED: ATORVASTATIN CALCIUM 10 MG TABLET. PO SCH (21:00)
== END 2021-04-11 12:00 | disposition home or self-care (01) | DRG 280 ==
LOC: ER 09:14 → 2 NORTH 12:00
PROVIDERS: ADMIT Family Medicine; ATTEND Family Medicine
DX: I21.4 Non-ST elevation (NSTEMI) myocardial infarction (principal); I50.43 Acute on chronic combined systolic (congestive) and diastolic (congestive) heart failure; J96.20 Acute and chronic respiratory failure, unspecified whether with hypoxia or hypercapnia; J44.1 Chronic obstructive pulmonary disease with (acute) exacerbation; J98.11 Atelectasis; I42.8 Other cardiomyopathies; Z68.42 Body mass index [BMI] 45.0-49.9, adult; I11.0 Hypertensive heart disease with heart failure; K21.9 Gastro-esophageal reflux disease without esophagitis; K76.0 Fatty (change of) liver, not elsewhere classified; R16.0 Hepatomegaly, not elsewhere classified; F15.10 Other stimulant abuse, uncomplicated; I25.10 Atherosclerotic heart disease of native coronary artery without angina pectoris; G47.33 Obstructive sleep apnea (adult) (pediatric); E66.01 Morbid (severe) obesity due to excess calories; E11.65 Type 2 diabetes mellitus with hyperglycemia; Z87.891 Personal history of nicotine dependence; Z82.49 Family history of ischemic heart disease and other diseases of the circulatory system; Z87.01 Personal history of pneumonia (recurrent); Z83.3 Family history of diabetes mellitus; Z83.49 Family history of other endocrine, nutritional and metabolic diseases; Z91.19 Patient's noncompliance with other medical treatment and regimen
CPT/HCPCS: 36415; 71045; 71275; 80048; 80053; 80061; 82962; 83036; 83735; 83880; 84484; 85025; 93005; 93306; 94640; 94799; J1650; J1815; J3480; Q9967; 99285-25; G0378

== ENCOUNTER 2021-11-26 06:54 | Emergency (ER) | payer OTHER ==
[~2021-11-26] VITALS: Ht 157.5 cm; Wt 118.7 kg
[~2021-11-26 06:54] MED LIST changes: +ATOR10TA60 PO; -DOXY100C2 PO; +DOXY100C3 PO; +INSU100V8 SQ; +LINA5TAB PO; -LISI2.5T PO; +LISI2.5T12 PO; +LISI5TAB15 PO; +METF500T PO
--- NOTE | 2021-11-26 07:30 | ED.ADGEN ---
Past Medical History Past Medical History: Asthma, CHF, COPD, Hypertension Additional Past Medical Histor: "HEART WEAK" Past Surgical History: Other Additional Past Surgical Histo: cardiac ablation Smoking Status: Current Every Day Smoker Additional Information: pack and 1/2 daily Alcohol Use: None Drug Use: None General Adult EDM: Chief Complaint: Palpitations HPI: HPI: Patient is a 46 year old female coming in for intermittent racing heartbeat. Patient states worsening blurred vision. Patient is a history of paroxysmal a trial fibrillation and is status post ablation at [facility] from May 2021. Patient states her blood sugars been running over 400. She states that she does take drink coffee and smokes about 1.5 packs of cigarettes per day, review of med list so she takes phentermine. Patient denies any other drug or alcohol use. Has significant cardiac history of CHF and NSTEMI's. Patient states she does not take any blood thinners. Patient is currently asymptomatic Review of Systems: Review of Systems: All other systems within normal limits except for as noted in the HPI Current Medications: Current Medications Medications (Trade) Dose Ordered Sig/Hernandez Start Time Stop Time Status Last Admin Dose Admin Famotidine (Pepcid Vial) 20 mg 1X ONCE 11/26/21 08:30 11/26/21 08:50 DC 11/26/21 08:55 20 MG Insulin Human Regular (HumuLIN R VIAL) 5 unit 1X ONCE 11/26/21 08:15 11/26/21 08:16 DC 11/26/21 08:38 5 UNIT Multi-Ingredient Mouthwash/Gargle (Gi Cocktail) 20 ml 1X ONCE 11/26/21 08:30 11/26/21 08:51 DC 11/26/21 08:55 20 ML Sodium Chloride 1,000 ml @ 1,000 mls/hr 1X ONCE 11/26/21 08:30 11/26/21 09:29 DC 11/26/21 08:33 1,000 MLS/HR Allergies: Allergies: Allergies Coded Allergies Type Severity Reaction Last Updated Verified No Known Drug Allergies 11/26/21 No Physical Exam: PE: Constitutional: Well developed, well nourished, no acute distress, non-toxic appearance. [] HENT: Normocephalic, atraumatic, bilateral external ears normal, nose normal. [] Eyes: PERRLA, conjunctiva normal, no discharge. [] Neck: No rigidity, supple, no stridor. [] Cardiovascular: Regular rate and rhythm, brisk cap refill [] Lungs & Thorax: Non labored symmetric respirations, no tachypnea or respiratory distress [] Abdomen: Soft, nondistended. Skin: Warm, dry, no erythema, no rash. [] Back: Unremarkable Extremities: No deformities, range of motion grossly intact, no lower extremity edema [] Neurologic: Alert and oriented X 3, no focal deficits noted. [] Psychologic: Affect normal, judgement normal, mood normal. [] Current Patient Data: Labs: Laboratory Tests Test 11/26/21 07:10 11/26/21 08:49 11/26/21 08:50 11/26/21 08:55 White Blood Count 12.9 x10^3/uL (4.0-11.0) H Red Blood Count 4.24 x10^6/uL (3.50-5.40) Hemoglobin 14.1 g/dL (12.0-15.5) Hematocrit 42.5 % (36.0-47.0) Mean Corpuscular Volume 100 fL (79-100) Mean Corpuscular Hemoglobin 33 pg (25-35) Mean Corpuscular Hemoglobin Concent 33 g/dL (31-37) Red Cell Distribution Width 13.9 % (11.5-14.5) Platelet Count 222 x10^3/uL (140-400) Neutrophils (%) (Auto) 77 % (31-73) H Lymphocytes (%) (Auto) 15 % (24-48) L Monocytes (%) (Auto) 7 % (0-9) Eosinophils (%) (Auto) 1 % (0-3) Basophils (%) (Auto) 0 % (0-3) Neutrophils # (Auto) 9.9 x10^3/uL (1.8-7.7) H Lymphocytes # (Auto) 2.0 x10^3/uL (1.0-4.8) Monocytes # (Auto) 0.9 x10^3/uL (0.0-1.1) Eosinophils # (Auto) 0.1 x10^3/uL (0.0-0.7) Basophils # (Auto) 0.0 x10^3/uL (0.0-0.2) Platelet Estimate Pending D-Dimer (Macey) < 0.27 ug/mlFEU Sodium Level 121 mmol/L (136-145) L Potassium Level 3.7 mmol/L (3.5-5.1) Chloride Level 89 mmol/L (98-107) L Carbon Dioxide Level 27 mmol/L (21-32) Anion Gap 5 (6-14) L Blood Urea Nitrogen 18 mg/dL (7-20) Creatinine 1.6 mg/dL (0.6-1.0) H Estimated GFR (Cockcroft-Gault) 34.4 BUN/Creatinine Ratio 11 (6-20) Glucose Level 701 mg/dL (70-99) *H Calcium Level 8.0 mg/dL (8.5-10.1) L Phosphorus Level 2.8 mg/dL (2.6-4.7) Magnesium Level 1.8 mg/dL (1.8-2.4) Total Bilirubin 0.4 mg/dL (0.2-1.0) Aspartate Amino Transferase (AST) 20 U/L (15-37) Alanine Aminotransferase (ALT) 47 U/L (14-59) Alkaline Phosphatase 133 U/L (46-116) H Troponin I High Sensitivity 9 ng/L (4-50) HP-Lju-Y-Type Natriuretic Peptide 104 pg/mL (0-124) Total Protein 7.7 g/dL (6.4-8.2) Albumin 2.9 g/dL (3.4-5.0) L Albumin/Globulin Ratio 0.6 (1.0-1.7) L Ethyl Alcohol Level < 10 mg/dL (0-10) Influenza Type A Antigen Negative (NEGATIVE) Influenza Type B Antigen Negative (NEGATIVE) SARS-CoV-2 Antigen (Rapid) Negative (NEGATIVE) Urine Collection Type Unknown Urine Color Yellow Urine Clarity Clear Urine pH 5.0 (<5.0-8.0) Urine Specific [place] >=1.030 (1.000-1.030) Urine Protein Negative mg/dL (NEG-TRACE) Urine Glucose (UA) >=1000 mg/dL (NEG) Urine Ketones (Stick) Negative mg/dL (NEG) Urine Blood Negative (NEG) Urine Nitrite Negative (NEG) Urine Bilirubin Negative (NEG) Urine Urobilinogen Dipstick 0.2 mg/dL (0.2 mg/dL) Urine Leukocyte Esterase Negative (NEG) Urine RBC 0 /HPF (0-2) Urine WBC 0 /HPF (0-4) Urine Squamous Epithelial Cells Few /LPF Urine Bacteria Few /HPF (0-FEW) Urine Opiates Screen Neg (NEG) Urine Methadone Screen Neg (NEG) Urine Barbiturates Neg (NEG) Urine Phencyclidine Screen Neg (NEG) Urine Amphetamine/Methamphetamine Neg (NEG) Urine Benzodiazepines Screen Neg (NEG) Urine Cocaine Screen Neg (NEG) Urine Cannabinoids Screen Neg (NEG) Urine Ethyl Alcohol Neg (NEG) Lactic Acid Level 1.3 mmol/L (0.4-2.0) Test 11/26/21 09:40 11/26/21 09:48 Troponin I High Sensitivity 7 ng/L (4-50) Glucose (Fingerstick) 426 mg/dL (70-99) H Laboratory Tests 11/26/21 07:10 Laboratory Tests 11/26/21 07:10 Vital Signs: Vital Signs Date Time Temp Pulse Resp B/P (MAP) Pulse Ox O2 Delivery O2 Flow Rate FiO2 11/26/21 07:06 98.2 96 20 141/72 (95) 100 Room Air 98.2 EKG: EK: Sinus rhythm, heart rate 94 bpm, normal axis, no ST elevation or depression, lateral T wave inversions changed from 04-07-2020 [] Heart Score: C/O Chest Pain: No HEART Score for Chest Pain: HEART Score for Chest Pain Response (Comments) Value History Slighlty/Non-Suspicious 0 ECG Nonspecific Repolarizatio 1 Age >45 - < 65 1 Risk Factors 1 or 2 Risk Factors 1 Troponin < Normal Limit 0 Total 3 Risk Factors: Risk Factors: DM, Current or recent (<one month) smoker, HTN, HLP, family history of CAD, obesity. Risk Scores: Score 0 - 3: 2.5% MACE over next 6 weeks - Discharge Home Score 4 - 6: 20.3% MACE over next 6 weeks - Admit for Clinical Observation Score 7 - 10: 72.7% MACE over next 6 weeks - Early Invasive Strategies Radiology/Procedures: Radiology/Procedures: [facility] [address] [place], [place] [id number] IMAGING REPORT Signed PATIENT: NIIKTA FONTANEZTATIANA Gomez ACCOUNT: [id number] : 1975 LOCATION: ER AGE: 46 SEX: F EXAM STATUS: REG ER ORD. PHYSICIAN: DIANA JENNINGS MD REASON: dyspnea PROCEDURE: CHEST AP ONLY EXAMINATION: Chest radiograph. VIEWS: 1 COMPARISON: CT chest 04/07/2021 INDICATION:46 years, Female, dyspnea. FINDINGS: Normal cardiomediastinal silhouette. No focal consolidation. No pleural effusion or pneumothorax. No acute osseous process. IMPRESSION: No acute cardiopulmonary process. Electronically signed by: Walker Garces MD (11/26/2021 7:40 AM) [id number] DICTATED and SIGNED BY: WALKER GARCES MD DATE: 11/26/21 [id number] [] Course & Med Decision Making: Course & Med Decision Making Pertinent Labs and Imaging studies reviewed. (See chart for details) Patient in sinus rhythm throughout emergency department stay with no episodes of tachycardia. Labs consistent with mild dehydration likely secondary to polyuria from uncontrolled hyperglycemia. Discussed increasing basal insulin and keeping a blood sugar log to have ready when she follows up with her primary care provider. Patient states she is feeling well and agrees to discharge plan. [] Dragon Disclaimer: Shelley Disclaimer: This electronic medical record was generated, in whole or in part, using a voice recognition dictation system. Departure Departure Impression: Primary Impression: Hyperglycemia due to diabetes mellitus Additional Impression: GERD (gastroesophageal reflux disease) Disposition: HOME / SELF CARE / HOMELESS Condition: STABLE Referrals: UNKNOWN PCP NAME (PCP) Additional Instructions: Increase your nighttime long-acting insulin by 5 units and keep a log of your blood sugars, follow-up with your primary care provider for reassessment of your blood glucose levels and insulin dosing. Scripts Famotidine (FAMOTIDINE) 40 Mg Tablet 40 MG PO HS for antacid for 30 Days, #30 TAB Prov: DIANA JENNINGS MD 11/26/21 Problem Qualifiers DIANA JENNINGS MD Nov 26, 2021 07:30
[2021-11-26 07:36] LABS: BASO % 0 % (0-3); EOS # 0.1 x10^3/uL (0.0-0.7); EOS % 1 % (0-3); HEMATOCRIT 42.5 % (36.0-47.0); HEMOGLOBIN 14.1 g/dL (12.0-15.5); LYMPH % 15 % (24-48); MEAN CORPUSCULAR HEMOGLOBIN 33 pg (25-35); MEAN CORPUSCULAR HGB CONC 33 g/dL (31-37); MEAN CORPUSCULAR VOLUME 100 fL (79-100); MONO # 0.9 x10^3/uL (0.0-1.1); MONO % 7 % (0-9); NEUT # 9.9 x10^3/uL (1.8-7.7); NEUT % 77 % (31-73); PLATELET COUNT 222 x10^3/uL (140-400); RED BLOOD COUNT 4.24 x10^6/uL (3.50-5.40); RED CELL DISTRIBUTION WIDTH 13.9 % (11.5-14.5); WHITE BLOOD COUNT 12.9 x10^3/uL (4.0-11.0)
--- NOTE | 2021-11-26 07:43 | RAD ---
EXAMINATION: Chest radiograph. VIEWS: 1 COMPARISON: CT chest 04/07/2021 INDICATION:46 years, Female, dyspnea. FINDINGS: Normal cardiomediastinal silhouette. No focal consolidation. No pleural effusion or pneumothorax. No acute osseous process. IMPRESSION: No acute cardiopulmonary process. Electronically signed by: Trupti Garces MD (11/26/2021 7:40 AM) [id number]
[2021-11-26 07:58] LABS: ALBUMIN 2.9 g/dL (3.4-5.0); ALBUMIN/GLOBULIN RATIO 0.6 (1.0-1.7); CREATININE 1.6 mg/dL (0.6-1.0); GFR 34.4; MAGNESIUM 1.8 mg/dL (1.8-2.4); PHOSPHORUS 2.8 mg/dL (2.6-4.7); POTASSIUM 3.7 mmol/L (3.5-5.1); TOTAL BILIRUBIN 0.4 mg/dL (0.2-1.0); TOTAL PROTEIN 7.7 g/dL (6.4-8.2)
[2021-11-26] MEDS ORDERED: INSULIN REGULAR 100 UNIT/ML 3ML VIAL. IV ONE (08:15)
[2021-11-26] MEDS ORDERED: IV NORMAL SALINE 500ML BAG 500 ML IV ONE (08:15)
[2021-11-26] MEDS ORDERED: FAMOTIDINE 20 MG/2 ML VIAL IVP ONE (08:30)
[2021-11-26] MEDS ORDERED: LIDO:MAALOX 1:1 20 ML SINGLE DOSE. SWSW ONE (08:30)
[2021-11-26] MEDS ORDERED: IV NORMAL SALINE 1000ML BAG 1,000 ML IV ONE (08:30)
[2021-11-26 09:11] LABS: BARBITURATES NEG (NEG); BENZODIAZEPINES NEG (NEG); CANNABINOIDS NEG (NEG); COCAINE NEG (NEG); METHADONE NEG (NEG); OPIATES NEG (NEG); PHENCYCLIDINE NEG (NEG)
[2021-11-26 09:14] LABS: BILIRUBIN,URINE NEGATIVE (NEG); CLARITY,URINE CLEAR; COLOR,URINE YELLOW; NITRITE,URINE NEGATIVE (NEG); PROTEIN,URINE NEGATIVE (NEG-TRACE); UROBILINOGEN,URINE 0.2 mg/dL (0.2 mg/dL)
[2021-11-26 09:16] LABS: AMPHETAMINE/METHAMPHETAMINE NEG (NEG)
[2021-11-26 09:22] LABS: INFLUENZA A PATIENT NEGATIVE (NEGATIVE); INFLUENZA B PATIENT NEGATIVE (NEGATIVE)
[2021-11-26 09:55] LABS: BACTERIA,URINE FEW /HPF (0-FEW); RBC,URINE 0 /HPF (0-2); WBC,URINE 0 /HPF (0-4)
[2021-11-26 10:29] VITALS: BP 120/67
[2021-11-26] MEDS ORDERED: FAMO40TA4 PO (10:44)
[2021-11-26 13:03] LABS: % BANDS 2 % (0-9); % LYMPHS 1 % (24-48); % MONOS 5 % (0-10); % SEGS 92 % (35-66); PLT ESTIMATE ADEQUATE (ADEQUATE)
--- NOTE | 2021-11-27 07:38 | EKG ---
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
== END 2021-11-26 10:55 | disposition home or self-care (01) ==
LOC: ER 06:54
DX: E11.65 Type 2 diabetes mellitus with hyperglycemia (principal); K21.9 Gastro-esophageal reflux disease without esophagitis; Z20.822 Contact with and (suspected) exposure to COVID-19; J44.9 Chronic obstructive pulmonary disease, unspecified; I11.0 Hypertensive heart disease with heart failure; I50.9 Heart failure, unspecified; I48.0 Paroxysmal atrial fibrillation; F17.210 Nicotine dependence, cigarettes, uncomplicated
CPT/HCPCS: 36415; 71045; 80053; 80307; 81001; 82962; 83605; 83735; 83880; 84100; 84484; 85007; 85025; 85379; 87428; 93005; 96361; 96374; 96375; 99285; G0480; J1815; J3490; J7030; U0003; U0005

== ENCOUNTER 2022-01-01 17:06 | Emergency (ER) | payer OTHER ==
[~2022-01-01] VITALS: Ht 157.5 cm; Wt 74.0 kg
[~2022-01-01 17:06] MED LIST changes: +FAMO40TA4 PO
[2022-01-01 17:26] VITALS: BP 130/82
[2022-01-01] MEDS ORDERED: SULF1TAB24 PO (17:44)
[2022-01-01] MEDS ORDERED: LIDOCAINE 1%/EPI 1:100,000 20 ML VIAL. INJ ONE (17:45)
[2022-01-01] MEDS ORDERED: LIDOCAINE 1% PF 5 ML VIAL. ONE (17:46)
--- NOTE | 2022-01-01 17:47 | PHYS DOC ---
Past Medical History Past Medical History: Asthma, CHF, COPD, Hypertension Additional Past Medical Histor: "HEART WEAK" Past Surgical History: Other Additional Past Surgical Histo: cardiac ablation Smoking Status: Current Every Day Smoker Alcohol Use: None Drug Use: None General Adult EDM: Chief Complaint: INSECT BITE HPI: HPI: Patient is a 46 year old female who presents with concern for an abscess on her left lower stomach. Initially thought that it could be some sort of insect bite, but did not see an insect at any time. Has noticed some surrounding redness over the past couple of days. Today it started to drain pus spontaneously. Denies any fevers, chills, nausea, vomiting, or other systemic symptoms. Review of Systems: Review of Systems: Constitutional: Denies fever or chills. [] Eyes: Denies change in visual acuity. [] HENT: Denies nasal congestion or sore throat. [] Respiratory: Denies cough or shortness of breath. [] Cardiovascular: Denies chest pain or edema. [] GI: Denies abdominal pain, nausea, vomiting, bloody stools or diarrhea. [] : Denies dysuria. [] Musculoskeletal: Denies back pain or joint pain. [] Integument: Reports abscess Psychiatric: Denies depression or anxiety. [] Heart Score: C/O Chest Pain: No Allergies: Allergies: Allergies Coded Allergies Type Severity Reaction Last Updated Verified No Known Drug Allergies 11/26/21 No Physical Exam: PE: Constitutional: Well developed, well nourished, no acute distress, non-toxic appearance. [] Cardiovascular:Heart rate regular rhythm, no murmur [] Lungs & Thorax: Bilateral breath sounds clear to auscultation [] Abdomen: Superficial area of redness in the left lower quadrant approximately 4- 5 cm in diameter. There is an area of induration and mild fluctuance with a central 0.5 cm opening with purulent drainage with pressure. No significant deep tenderness to palpation. Back: No tenderness, no CVA tenderness. [] Extremities: No tenderness, no cyanosis, no clubbing, ROM intact, no edema. [] Neurologic: Alert and oriented X 3, normal motor function, normal sensory function, no focal deficits noted. [] Psychologic: Affect normal, judgement normal, mood normal. [] Current Patient Data: Vital Signs: Vital Signs Date Time Temp Pulse Resp B/P (MAP) Pulse Ox O2 Delivery O2 Flow Rate FiO2 01/01/22 17:26 97.3 96 16 130/82 (98) 97 97.3 EKG: EKG: [] Radiology/Procedures: Radiology/Procedures: Discrete hypoechoic area seen on bedside ultrasound consistent with abscess formation. [] Impression: Indication: abscess Procedure: The patient was positioned appropriately. Local anesthesia was inj ected superficially with 1% lidocaine with epinephrine. the lesion was scantly draining purulent material, the head/opening of the lesion was extended with 11 blade scalpel. The drainage cavity was irrigated. The patients tetanus status updated as needed. The patient tolerated the procedure well. Complications: none. Course & Med Decision Making: Course & Med Decision Making Pertinent Labs and Imaging studies reviewed. (See chart for details) Patient is a 46-year-old female who presents with concerns of an abscess. Abscess seen on coitv-co-ftwd ultrasound, the abscess has come to ahead spontaneously and is draining a scant amount of purulent fluid. The opening has been extended as above with I&D. There is surrounding erythema concerning for cellulitis. Will be placed on p.o. antibiotics w/ bactrim. Tetanus updated. Dragon Disclaimer: Dragon Disclaimer: This electronic medical record was generated, in whole or in part, using a voice recognition dictation system. Departure Departure Impression: Primary Impression: Abscess Disposition: 01 HOME / SELF CARE / HOMELESS Condition: STABLE Referrals: UNKNOWN PCP NAME (PCP) Patient Instructions: Abscess Additional Instructions: Please continue to let the abscess drain. You can use a warm cloth for compresses several times a day. Please take Bactrim twice daily for the next 7 days to treat the skin infection. If you develop high fevers, shaking chills, worsening infection, or other new/concerning symptoms please return to the emergency department for reevaluation. Scripts Sulfamethoxazole/Trimethoprim (BACTRIM DS TABLET) 1 Each Tablet 1 TAB PO BID for infection for 7 Days, #14 TAB 0 Refills Prov: MARY KNOWLES MD 01/01/22 MARY KNOWLES MD Jan 01, 2022 17:47
[2022-01-01] MEDS ORDERED: TETANUS AND DIPHTHERIA TOX/PF 0.5 ML DISP.SYRIN. VAX IM ONE (18:00)
== END 2022-01-01 18:25 | disposition home or self-care (01) ==
LOC: ER 17:06
DX: L02.211 Cutaneous abscess of abdominal wall (principal); I11.0 Hypertensive heart disease with heart failure; I50.9 Heart failure, unspecified; J44.9 Chronic obstructive pulmonary disease, unspecified; F17.200 Nicotine dependence, unspecified, uncomplicated
CPT/HCPCS: 10060; 99284; J3490

== ENCOUNTER 2022-03-13 17:46 | Emergency (ER) | payer OTHER ==
[~2022-03-13] VITALS: Ht 160 cm; Wt 114.4 kg
[~2022-03-13 17:46] MED LIST changes: +SULF1TAB24 PO
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
[2022-03-13 18:28] LABS: RBC,URINE 0 /HPF (0-2); WBC,URINE 0 /HPF (0-4); YEAST,URINE PRESENT /HPF
[2022-03-13 18:29] LABS: BACTERIA,URINE FEW /HPF (0-FEW)
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
[2022-03-13 19:25] VITALS: BP 96/56
[2022-03-13] MEDS ORDERED: NAPR-514 PO (19:43)
[2022-03-13] MEDS ORDERED: CYCL10TA19 PO (19:43)
== END 2022-03-13 19:50 | disposition home or self-care (01) ==
LOC: ER 17:46
DX: K80.80 Other cholelithiasis without obstruction (principal); K40.90 Unilateral inguinal hernia, without obstruction or gangrene, not specified as recurrent; J44.9 Chronic obstructive pulmonary disease, unspecified; I11.0 Hypertensive heart disease with heart failure; I50.9 Heart failure, unspecified; F17.200 Nicotine dependence, unspecified, uncomplicated
CPT/HCPCS: 74176; 81001; 81025; 99284-25

== ENCOUNTER → 2022-04-06 | Outpatient (CLI) | payer OTHER ==
[2022-03-13 19:25] VITALS: BP 96/56
[~2022-04-06] MED LIST changes: +CYCL10TA19 PO; +HYDR12.58 PO; +INSU100I13 SQ; +NAPR-514 PO
== END ==
LOC: LAB 14:08
PROVIDERS: ATTEND Surgery
DX: Z01.812 Encounter for preprocedural laboratory examination (principal); Z20.822 Contact with and (suspected) exposure to COVID-19
CPT/HCPCS: U0003